=== PATIENT | male | born 1960 | race Caucasian/White ===

== ENCOUNTER 2017-06-16 13:38 | Emergency (ER) | payer BC, SELFPAY ==
[2017-06-16 13:39] VITALS: BP 135/66; PULSE 203; RESP 16; O2SAT 98; BMI 36.4
--- NOTE | 2017-06-16 13:39 | EKG12_ITS ---
Test Reason : CP Blood Pressure : / mmHG Vent. Rate : 202 BPM Atrial Rate : 234 BPM P-R Int : 000 ms QRS Dur : 066 ms QT Int : 224 ms P-R-T Axes : 000 041 205 degrees QTc Int : 410 ms Supraventricular tachycardia Nonspecific marked ST abnormality Abnormal ECG Confirmed by BERE MACARIO, JIMBO ([id number]), assistant film editor CHARI ROWLAND ([id number]) on 06/20/2017 2:18:18 PM Referred By: EZEQUIEL Confirmed By:JIMBO BLACKBURN MD
[2017-06-16 13:42] VITALS: TEMP 36.7
[2017-06-16] MEDS: Adenosine 6 MG/2 ML Syringe IV (13:44)
[2017-06-16] MEDS: Adenosine 6 MG/2 ML Syringe 12 MG IV (13:46)
--- NOTE | 2017-06-16 13:51 | RAD_ITS ---
STUDY: X-RAY CHEST REASON FOR EXAM: Male, 57 years old. Chest pain. TECHNIQUE: Single AP portable view of the chest. COMPARISON: 09/27/2013. FINDINGS: The lungs are clear and expanded. There is no demonstrated pleural abnormality. Normal size heart. Normal mediastinum and jasen. Normal visualized pulmonary arteries. Normal visualized aortic arch and descending thoracic aorta. Normal visualized thoracic spine. Normal visualized ribs, clavicles, and shoulders. There is no demonstrated abnormality of the visualized soft tissue structures of the upper abdomen. RAD/Chest 1 View (Portable) IMPRESSION: Normal x-ray examination of the chest. Electronically Signed: Ishmael Skinner MD at 14:18 EDT , Service support ,
--- NOTE | 2017-06-16 13:51 | EKG12_ITS ---
Test Reason : CP Blood Pressure : / mmHG Vent. Rate : 098 BPM Atrial Rate : 098 BPM P-R Int : 128 ms QRS Dur : 084 ms QT Int : 352 ms P-R-T Axes : 029 027 019 degrees QTc Int : 449 ms Normal sinus rhythm Normal ECG Confirmed by BERE MACARIO, JIMBO ([id number]), subeditor CHARI ROWLAND ([id number]) on 06/20/2017 1:54:00 PM Referred By: GREG Confirmed By:JIMBO BLACKBURN MD
--- NOTE | 2017-06-16 13:52 | ED.VISSUMM ---
- ER Visit Summary Date of Service: 06/16/17 Chief Complaint: Chest pain and palpitations History of Present Illness: The patient is a 57 M who was out mowing the lawn today when he developed a sudden onset of heart racing and chest pain. Patient states that this is happened to him once before several years ago. He states he did not see a foreign service officer. He has not had any symptoms since that time. He drinks about 2 cups of coffee a day. He was in his normal state of health today prior to this episode. He states that he is recently quit smoking. He has been exercising. Physical Examination: Heart rate 203 blood pressure 135/66 temperature 98.1 respirations are 16 pulse ox 98% on nasal cannula Gen: Well-nourished well-developed Head: Normocephalic atraumatic Eyes: Perrl EOMI ENT: TMs clear no rhinorrhea moist mucous membranes Neck: Supple no lymphadenopathy no JVD nontender CVS: Tachycardic no murmurs normal S1-S2 Respiratory: No distress clear to auscultation bilaterally chest nontender Abdomen: Soft nontender nondistended normal bowel sounds no masses Back: Nontender Extremity: Nontender no edema Skin: Pale and diaphoretic Neuro: alert orientated ?3 CN II-XII intact normal strength sensation reflexes gait cerebellar Psych: Anxious Emergency Department Course and Treatment: She will EKG shows a supraventricular tachycardia at a rate of 202 with evidence of subendocardial injury. She received 6 mg of adenosine after 2 vagal maneuvers failed. 12 mg of adenosine readily converted him to a sinus tachycardia. Repeat EKG shows resolution of the subendocardial injury. White count at 16.7 which is most likely due to the stress reaction of the events. Magnesium at 2 potassium 4.1. Glucose of 160. He does not note a history of diabetes I will send off a hemoglobin A1c for his doctors to review. BUN of 19 with a creatinine of 1.37. I spoke with Dr. Baeza who is covering for cardiology. Patient will call for follow-up appointment. At this point will not make any adjustments to his metoprolol because he is gone so many years without a episode. Patient to return if his symptoms recur. Impression: 1. Supraventricular tachycardia 2. Chemical cardioversion 2. Hyperglycemia This note was generated with WordWatchation software. It may contain incorrect words, spelling, and punctuation that were not noted in review of the chart prior to signing ED Disposition - Plan for ED Patient: Disposition: Home or Assisted Living Chief Complaint: Chest Pain Instructions: Hyperglycemia (High Blood Sugar), ED Tachycardia Pat PSVT Referrals: Nomi Hernandez MD [Primary Care Provider] - (Please follow-up with your doctor regarding your elevated blood sugar today of 160 and for them to review your hemoglobin A1c.) Marc Baeza MD [STAFF PHYSICIAN] - (Please follow-up with cardiology regarding your supraventricular tachycardic episode today.)
[2017-06-16] MEDS: 0.9% Normal Saline 1,000 ML 1000 ML IV (13:55)
[2017-06-16 14:05] LABS: Absolute Lymphocyte Count 8.53 X10^3/ul (0.83-4.51); Absolute Neutrophil Count 5.3 X10^3/uL (2.0-7.7); Basophil# 0.06 X10^3/uL; Basophil% 0.4 % (0-1); Differential Indicated SCAN CRITERIA MET; Eosinophils% 2.4 % (0-5); Hematocrit 45.5 % (40-54); Hemoglobin 15.6 g/dl (13.0-16.5); Lymphocyte # 8.53 X10^3/ul (4.0); Lymphocyte % 51.2 % (19-41); Mean Corp Hgb Conc 34.3 g/gl (32-36); Mean Corpuscular Hgb 33.3 pg (27.0-32.0); Mean Corpuscular Volume 97.2 fL (80-94); Mean Platelet Vol. 10.3 fl (6.2-12.0); Monocyte# 2.36 X10^3/uL; Monocyte% 14.2 % (0-10); Neutrophil # 5.26 X10^3/uL (2.7-7.7); Neutrophil % 31.5 % (47-70); POSITIVE COUNT NO; POSITIVE DIFFERENTIAL YES; POSITIVE MORPHOLOGY YES; Platelet Count 505 K/mm3 (150-450); RBC Distribution Width CV 14.2 % (11.6-14.6); RBC Distribution Width SD 49.8 fl (35.1-43.9); Red Blood Count 4.68 M/mm3 (4.6-6.2); White Blood Count 16.7 K/mm3 (4.4-11.0)
[2017-06-16 14:13] LABS: Anion Gap 10 (5-15); BUN 19 mg/dL (7-18); BUN/Creat Ratio 14.3 RATIO (10-20); Calcium,Total 9.3 mg/dL (8.5-10.1); Chloride 110 mmol/L (98-107); Creatinine, Serum 1.33 mg/dL (0.70-1.30); EST Glomerular Filtration Rate 59 mL/min (>60); Est Glom Filt Rate - Afr Amer 71 mL/min (>60); Estimated Creatinine Clearance 65.27 ml/min; Glucose 160 mg/dL (74-106); Potassium 4.1 mmol/L (3.5-5.1); Sodium Level 143 mmol/L (136-145)
[2017-06-16 14:42] VITALS: BP 112/80; PULSE 93; RESP 13; O2SAT 98
[2017-06-16 15:18] LABS: Hemoglobin A1c 5.7 % (4.2-6.3)
== END 2017-06-16 14:49 | disposition home or self-care (01) ==
LOC: ED 14:37
PROVIDERS: Emergency Provider Emergency Medicine; Family Provider Family Medicine; PCP Family Medicine
DX: I47.1 Supraventricular tachycardia (principal); R73.9 Hyperglycemia, unspecified; I10 Essential (primary) hypertension; Z87.891 Personal history of nicotine dependence
CPT/HCPCS: 71045; 80048; 83036; 83735; 85025; 93005; 99284; J7030; J0153

== ENCOUNTER → 2017-07-04 10:23 | Outpatient (CLI) | payer BC, SELFPAY ==
[2017-07-04 12:11] LABS: AST(SGOT) 17 U/L (15-37); Alanine Aminotransfer ALT/SGPT 27 U/L (16-61); Albumin, Serum 3.8 g/dL (3.2-5.0); Alkaline Phosphatase 76 U/L (45-117); Bilirubin, Direct 0.07 mg/dL (0.00-0.30); Cholesterol 152 mg/dL (200); Globulin 3.8 g/dL (2.2-4.2); High Density Lipoprotein 32 mg/dL; Protein, Total 7.6 g/dL (6.4-8.2); Thyroid Stim Hormone (TSH) 0.84 uIU/mL (0.358-3.74); Triglycerides 216 mg/dL; Very Low Density Lipoprotein 43 mg/dL (5-40)
== END ==
PROVIDERS: Family Provider Family Medicine; PCP Family Medicine; Visit Provider Internal Medicine Cardiovascular Disease
DX: I47.1 Supraventricular tachycardia (principal)
CPT/HCPCS: 36415; 80061; 80076; 84443

== ENCOUNTER → 2017-07-16 07:41 | Outpatient (CLI) | payer BC, SELFPAY ==
--- NOTE | 2017-07-16 07:41 | DT_ITS ---
This patient was seen during an EMR downtime July 16, 2017 - July 23, 2017. This patient may have a combination of paper and electronic documentation or all paper documentation. All documentation is viewable within the e-chart portion of [facility] for each patient visit.
--- NOTE | 2017-07-18 14:28 | ECHOD_ITS ---
Reason For Study: Arrhythmia Procedure This was a 2D Doppler, Color Flow transthoracic echocardiogram. Exam performed in department. Left Ventricle Normal LV size. Left ventricular systolic function is normal. The estimated ejection fraction is 60 %. Transmitral diastolic flow velocities suggest mild (stage 1) diastolic dysfunction (reversed pattern). No regional wall motion abnormalities noted. Right Ventricle Normal RV size. Normal systolic function. Atria Normal left atrium. Normal right atrium. Mitral Valve Normal mitral valve. Tricuspid Valve Normal tricuspid valve. Aortic Valve Trisinus/trileaflet aortic valve. Pulmonic Valve Normal pulmonic valve. Great Vessels Normal aortic root. The pulmonary artery is normal size. Normal inferior vena cava. Pericardium/Pleural No pericardial effusion. Medication Diluted definity 2ml given slow IV push to enhance endocardial definition. MMode/2D Measurements & Calculations LVIDd: 4.6 cm IVSd: 1.4 cm Ao root diam: 3.6 cm LVIDs: 3.2 cm LVPWd: 0.98 cm LA dimension: 4.3 cm RVDd: 3.9 cm FS: 30.1 % LAV(MOD-bp): 43.0 ml LAV(MOD-bp) Indexed: 18.4 ml/m2 LA A4 area: 19.9 cm2 RA A4 area: 15.5 cm2 LAV(MOD-sp2): 36.0 ml LAV(MOD-sp4): 52.1 ml Time Measurements MV dec time: 0.22 sec Doppler Measurements & Calculations MV E max erasto: 67.0 cm/sec Lat Peak E' Erasto: 14.4 cm/sec Med Peak E' Erasto: 9.7 cm/sec MV A max erasto: 83.3 cm/sec E/E' lat: 4.6 E/E' med: 6.9 MV E/A: 0.80 MV V2 max: 97.5 cm/sec Ao V2 max: 107.7 cm/sec LV V1 max: 99.1 cm/sec MV max P.8 mmHg Ao max P.6 mmHg LV V1 max P.9 mmHg MV V2 mean: 54.2 cm/sec Ao V2 mean: 72.6 cm/sec LV V1 mean P.9 mmHg MV mean P.4 mmHg Ao mean P.4 mmHg LV V1 mean: 64.4 cm/sec MV V2 VTI: 28.5 cm Ao V2 VTI: 21.3 cm LV V1 VTI: 21.4 cm PA V2 max: 79.9 cm/sec TR max erasto: 241.5 cm/sec TR max P.3 mmHg Interpretation Summary Normal LV size. Left ventricular systolic function is normal. The estimated ejection fraction is 60 %. Transmitral diastolic flow velocities suggest mild (stage 1) diastolic dysfunction (reversed pattern). Contrast injection was performed. Ordering Physician: Marc Baeza Referring Physician: Nomi Hernandez M.D. Performed By: Miranda Cole RDCS
== END ==
PROVIDERS: Family Provider Family Medicine; PCP Family Medicine; Visit Provider Internal Medicine Cardiovascular Disease
DX: I47.1 Supraventricular tachycardia (principal)
CPT/HCPCS: 93306; Q9957; A4216

== ENCOUNTER → 2017-11-08 08:48 | Outpatient (CLI) | payer BC, SELFPAY ==
[2017-11-08 10:28] LABS: AST(SGOT) 15 U/L (15-37); Alanine Aminotransfer ALT/SGPT 27 U/L (16-61); Albumin, Serum 3.8 g/dL (3.2-5.0); Alkaline Phosphatase 80 U/L (45-117); Anion Gap 6 (5-15); BUN 14 mg/dL (7-18); BUN/Creat Ratio 15.7 RATIO (10-20); Calcium,Total 8.9 mg/dL (8.5-10.1); Chloride 108 mmol/L (98-107); Cholesterol 134 mg/dL (200); Creatinine, Serum 0.89 mg/dL (0.70-1.30); EST Glomerular Filtration Rate 94 mL/min (>60); Est Glom Filt Rate - Afr Amer 113 mL/min (>60); Globulin 3.8 g/dL (2.2-4.2); Glucose 113 mg/dL (74-106); High Density Lipoprotein 33 mg/dL; Potassium 4.4 mmol/L (3.5-5.1); Protein, Total 7.6 g/dL (6.4-8.2); Sodium Level 141 mmol/L (136-145); Triglycerides 202 mg/dL; Very Low Density Lipoprotein 40 mg/dL (5-40)
== END ==
PROVIDERS: Family Provider Family Medicine; PCP Family Medicine; Visit Provider Family Medicine
DX: I10 Essential (primary) hypertension (principal)
CPT/HCPCS: 36415; 80053; 80061

== ENCOUNTER → 2018-11-01 13:25 | Outpatient (CLI) | payer BC, SELFPAY ==
[2017-07-04 09:27] VITALS: BMI 35.5
[2018-11-01 14:30] LABS: Anion Gap 4 (5-15); BUN 20 mg/dL (7-18); BUN/Creat Ratio 20.9 RATIO (10-20); Calcium,Total 8.8 mg/dL (8.5-10.1); Chloride 111 mmol/L (98-107); Cholesterol 140 mg/dL (200); Creatinine, Serum 0.96 mg/dL (0.70-1.30); EST Glomerular Filtration Rate 86 mL/min (>60); Est Glom Filt Rate - Afr Amer 104 mL/min (>60); Glucose 121 mg/dL (74-106); High Density Lipoprotein 32 mg/dL; PSA,Total - Annual Screen 3.12 ng/mL (0.00-4.00); Potassium 4.1 mmol/L (3.5-5.1); Sodium Level 141 mmol/L (136-145); Triglycerides 217 mg/dL; Very Low Density Lipoprotein 43 mg/dL (5-40)
[2018-11-01 15:15] LABS: Hemoglobin A1c 6.1 % (4.2-6.3)
== END ==
PROVIDERS: Family Provider Family Medicine; PCP Family Medicine; Referring Provider Family Medicine; Visit Provider Family Medicine
DX: E78.5 Hyperlipidemia, unspecified (principal); I10 Essential (primary) hypertension; R73.09 Other abnormal glucose; Z12.5 Encounter for screening for malignant neoplasm of prostate
CPT/HCPCS: 36415; 80048; 80061; 83036; 84153; G0103

== ENCOUNTER → 2019-01-21 14:03 | Outpatient (CLI) | payer BC, SELFPAY ==
[2017-07-04 09:27] VITALS: BMI 35.5
[2019-01-21 15:31] LABS: ALB/GLOB Ratio 0.9 RATIO (0.9-2.4); AST(SGOT) 12 U/L (15-37); Alanine Aminotransfer ALT/SGPT 29 U/L (16-61); Albumin, Serum 3.6 g/dL (3.2-5.0); Alkaline Phosphatase 78 U/L (45-117); Anion Gap 5 (5-15); BUN 12 mg/dL (7-18); BUN/Creat Ratio 13.1 RATIO (10-20); Calcium,Total 8.9 mg/dL (8.5-10.1); Chloride 107 mmol/L (98-107); Creatinine, Serum 0.91 mg/dL (0.70-1.30); EST Glomerular Filtration Rate 90 mL/min (>60); Est Glom Filt Rate - Afr Amer 109 mL/min (>60); Globulin 3.8 g/dL (2.2-4.2); Glucose 117 mg/dL (74-106); Potassium 4.2 mmol/L (3.5-5.1); Protein, Total 7.4 g/dL (6.4-8.2); Sodium Level 140 mmol/L (136-145)
[2019-01-21 15:32] LABS: BNP,B-Type NATRIURETIC PEPTIDE 33.8 pg/mL (0-100)
== END ==
PROVIDERS: Family Provider Family Medicine; PCP Family Medicine; Visit Provider Family Medicine
DX: M79.89 Other specified soft tissue disorders (principal)
CPT/HCPCS: 36415; 80053; 83880

== ENCOUNTER → 2019-11-06 11:44 | Outpatient (CLI) | payer BC, SELFPAY ==
[2017-07-04 09:27] VITALS: BMI 35.5
[2019-11-06 15:54] LABS: AST(SGOT) 19 U/L (15-37); Alanine Aminotransfer ALT/SGPT 28 U/L (16-61); Albumin, Serum 3.6 g/dL (3.2-5.0); Alkaline Phosphatase 79 U/L (45-117); Anion Gap 5 (5-15); BUN 14 mg/dL (7-18); BUN/Creat Ratio 15.2 RATIO (10-20); Calcium,Total 8.6 mg/dL (8.5-10.1); Chloride 109 mmol/L (98-107); Cholesterol 146 mg/dL (200); Creatinine, Serum 0.92 mg/dL (0.70-1.30); EST Glomerular Filtration Rate 89 mL/min (>60); Est Glom Filt Rate - Afr Amer 108 mL/min (>60); Globulin 3.7 g/dL (2.2-4.2); Glucose 119 mg/dL (74-106); High Density Lipoprotein 29 mg/dL; PSA,Total - Annual Screen 4.78 ng/mL (0.00-4.00); Potassium 4.4 mmol/L (3.5-5.1); Protein, Total 7.3 g/dL (6.4-8.2); Sodium Level 140 mmol/L (136-145); Triglycerides 356 mg/dL; Very Low Density Lipoprotein 71 mg/dL (5-40)
== END ==
PROVIDERS: PCP Family Medicine; Referring Provider Family Medicine; Visit Provider Family Medicine
DX: I10 Essential (primary) hypertension (principal); Z12.5 Encounter for screening for malignant neoplasm of prostate
CPT/HCPCS: 36415; 80053; 80061; 84153; G0103

== ENCOUNTER → 2019-12-30 16:00 | Outpatient (CLI) | payer BC, SELFPAY ==
[2017-07-04 09:27] VITALS: BMI 35.5
--- NOTE | 2019-12-30 11:00 | PROSBIL_PTH ---
PATIENT: REJI CARRENO LOC: BRAIN U#:[id number] AGE/SX: 64/M ROOM: RE12/30/[address]: Dr. Reji Lou MD : [id number] BED: DIS: SPEC #: [id number] RECD: 12/31/19 08:50 STATUS: MARTÍN DIMITRI #: [id number] JESSE: 12/30/19 11:[address]: Reji Lou DEPT: SURGICAL PATHOLOGY RECD BY: Yvonne Mckoy ENTERED: 12/31/19 08:52 SP TYPE: PROST BX ALTAF DR: Dr. Nomi Hernandez MD Tissues: A - PROSTATE RIGHT B - PROSTATE RIGHT C - PROSTATE RIGHT D - PROSTATE LEFT E - PROSTATE LEFT F - PROSTATE LEFT Procedures: PROSTATE BX HEADER OPERATION: Prostate biopsy PRE-OP DIAGNOSIS: Elevated PSA TISSUE SUBMITTED: A - Right apex, B - Right mid, C - Right base, D - Left apex, E - Left mid, F - Left base MICROSCOPIC DIAGNOSIS A. Right prostate, apex, core biopsy: Benign prostatic tissue. B. Right prostate, mid, core biopsy: Benign prostatic tissue. C. Right prostate, base, core biopsy: Mild chronic inflammation. D. Left prostate, apex, core biopsy: Mild chronic inflammation and focal acute inflammation. E. Left prostate, mid, core biopsy: Mild chronic inflammation and focal acute inflammation. F. Left prostate, base, core biopsy: Mild chronic inflammation and focal acute inflammation. AM:clementina 01/01/20 MICROSCOPIC DESCRIPTION Slides are reviewed. GROSS DESCRIPTION A - Received is one container designated prostate, right apex. The specimen consists of one elongated fragment of light barrios-white soft tissue measuring 1.5 cm in length and 0.1 cm in diameter. The specimen is totally submitted in one cassette. B - Received is one container designated prostate, right mid. The specimen consists of two elongated fragments of light barrios-white soft tissue each measuring 1 cm in length and 0.1 cm in diameter. The specimen is totally submitted in one cassette. C - Received is one container designated prostate, right base. The specimen consists of two elongated fragments of light barrios-white soft tissue each measuring 1 cm in length and 0.1 cm in diameter. The specimen is totally submitted in one cassette. D - Received is one container designated prostate, left apex. The specimen consists of one elongated fragment of light barrios-white soft tissue measuring 1.5 cm in length and 0.1 cm in diameter. The specimen is totally submitted in one cassette. E - Received is one container designated prostate, left mid. The specimen consists of two elongated fragments of light barrios-white soft tissue each measuring 1 cm in length and 0.1 cm in diameter. The specimen is totally submitted in one cassette. F - Received is one container designated prostate, left base. The specimen consists of two elongated fragments of light barrios-white soft tissue each measuring 1 cm in length and 0.1 cm in diameter. The specimen is totally submitted in one cassette. / AM:clementina 12/31/19 TC:2 CPT: 62993 x6
== END ==
PROVIDERS: PCP Family Medicine; Visit Provider Urology
DX: R97.20 Elevated prostate specific antigen [PSA] (principal)
CPT/HCPCS: 88305; G0416

== ENCOUNTER → 2020-03-31 12:41 | Outpatient (CLI) | payer OTHER, SELFPAY ==
--- NOTE | 2020-03-31 12:45 | CT_ITS ---
STUDY: CT SOFT TISSUE NECK WITH CONTRAST REASON FOR EXAM: Male, 60 years old. LEFT FACIAL PARALYSIS AFTER EAR CLEANING AT 'S OFFICE RADIATION DOSAGE (If Supplied By Facility): CTDIvol = ( 18.89 ) mGy, DLP = ( 608.83 ) mGycm TECHNIQUE: The patient was scanned in a multi-detector CT scanner. High resolution transaxial imaging was performed following intravenous administration of IV 100mL Isovue-300. Sagittal and coronal images were reconstructed. Individualized dose optimization techniques were used for this CT. COMPARISON: 11/22/2015. FINDINGS: Normal bilateral parotid glands. Normal bilateral business continuity manager spaces. Normal bilateral parapharyngeal spaces. Normal bilateral sublingual and submandibular glands and spaces. Normal visualized nasopharynx. Normal retropharyngeal space. Normal perivertebral space. Normal visualized bilateral faucial tonsils. The visualized tongue, tongue base and oropharynx are normal. Again noted are bilateral cervical chains enlarged lymph nodes measuring up to 2 cm at the left jugulodigastric region. Findings are stable since the prior examination. There is no demonstrated solid or cystic mass lesion. There is no abnormal contrast enhancement. Normal epiglottis, bilateral vallecula and hypopharynx. The pre-epiglottic and paraglottic adipose spaces are normal. Normal visualized bilateral piriform sinuses, aryepiglottic folds, vocal cords, and arytenoid-cricoid articulations. Normal subglottic trachea. Normal bilateral lobes of the thyroid gland. Normal visualized pulmonary apices. CT/Soft Tissue Neck WITH Contrast IMPRESSION: No fluid collections or masses. Stable mild lymphadenopathy. Electronically Signed: Myra Guzman MD at 9:06 EST Tel , Service support ,
[2020-03-31 13:16] LABS: CREATININE FINGERSTICK 1.1 mg/dL (0.70-1.30); EGFR FINGERSTICK > 60.0000 mL/min (>60)
== END ==
PROVIDERS: PCP Family Medicine; Referring Provider Otolaryngology Otolaryngology/Facial Plastic Surgery; Visit Provider Otolaryngology Otolaryngology/Facial Plastic Surgery
DX: G51.0 Bell's palsy (principal)
CPT/HCPCS: 70491; Q9967

== ENCOUNTER → 2020-04-06 12:35 | Outpatient (CLI) | payer OTHER, SELFPAY ==
[2017-07-04 09:27] VITALS: BMI 35.5
--- NOTE | 2020-04-06 12:40 | RAD_ITS ---
STUDY: X-RAY - UNILATERAL RIBS ( LEFT ) WITH CHEST REASON FOR EXAM: Male, 60 years old. Left sided anterior rib pain after fall TECHNIQUE - RIBS: 4 view(s) of the ribs. TECHNIQUE - CHEST: Single frontal view of the chest. COMPARISON: Comparison is made with prior chest radiograph dated 06/16/2017. FINDINGS - RIBS: Normal visualized ribs without a demonstrated fracture. FINDINGS - CHEST: Mild degree of increased markings at the lung bases more prominent on the right side suggestive of right basilar atelectasis. There is no demonstrated pleural abnormality. Normal size heart. Normal mediastinum and jasen. Normal visualized pulmonary arteries. Normal visualized aortic arch and descending thoracic aorta. There are diffuse degenerative changes of the visualized thoracic spine. There is degenerative osteoarthritis of the bilateral shoulders. There is no demonstrated abnormality of the visualized soft tissue structures of the upper abdomen. RAD/Ribs Uni Min 3V w/PA Chest IMPRESSION: RIBS: Normal x-ray examination of the ribs. CHEST: Bibasilar atelectasis. Electronically Signed: Rodney Brower MD at 13:31 EST , Service support ,
== END ==
PROVIDERS: PCP Family Medicine; Referring Provider Registered Nurse; Visit Provider Registered Nurse
DX: R07.81 Pleurodynia (principal)
CPT/HCPCS: 71101

== ENCOUNTER → 2020-04-12 14:03 | Outpatient (CLI) | payer OTHER, SELFPAY ==
[2017-07-04 09:27] VITALS: BMI 35.5
--- NOTE | 2020-04-12 14:06 | RAD_ITS ---
STUDY: X-RAY CHEST REASON FOR EXAM: Male, 60 years old. CHEST PAIN TECHNIQUE: PA and lateral views of the chest. COMPARISON: 04/06/2020 FINDINGS: Left lower lobe discoid atelectasis or scarring. There is no demonstrated pleural abnormality. Normal size heart. Normal mediastinum and jasen. Normal visualized pulmonary arteries. Normal visualized aortic arch and descending thoracic aorta. Normal visualized thoracic spine. Multiple healed left rib fractures. There is no demonstrated abnormality of the visualized soft tissue structures of the upper abdomen. RAD/Chest PA and Lateral IMPRESSION: Left lower lobe discoid atelectasis or scarring Electronically Signed: Bridger Mendez MD at 14:45 EST Tel , Service support ,
--- NOTE | 2020-04-12 14:06 | RAD_ITS ---
STUDY: X-RAY - UNILATERAL RIBS ( LEFT ) REASON FOR EXAM: Male, 60 years old. PAIN- FALL TECHNIQUE: 4 view(s) of the ribs. COMPARISON: None. FINDINGS: Healed fracture the posterior left seventh, eighth, and ninth ribs. The visualized lung is clear and expanded. RAD/Ribs Unil 2V No CXR IMPRESSION: Multiple healed left rib fractures. Electronically Signed: Bridger Mendez MD at 14:43 EST Tel , Service support ,
== END ==
PROVIDERS: PCP Family Medicine; Referring Provider Family Medicine; Visit Provider Family Medicine
DX: R07.89 Other chest pain (principal); T14.8XXA Other injury of unspecified body region, initial encounter; W19.XXXA Unspecified fall, initial encounter; Y93.9 Activity, unspecified; Y92.9 Unspecified place or not applicable; Y99.9 Unspecified external cause status
CPT/HCPCS: 71046; 71100

== ENCOUNTER → 2020-05-06 13:55 | Outpatient (CLI) | payer OTHER, SELFPAY ==
[2020-05-06 18:16] LABS: AST(SGOT) 16 U/L (15-37); Alanine Aminotransfer ALT/SGPT 28 U/L (16-61); Albumin, Serum 3.6 g/dL (3.2-5.0); Alkaline Phosphatase 83 U/L (45-117); Anion Gap 5 (5-15); BUN 17 mg/dL (7-18); BUN/Creat Ratio 20.4 RATIO (10-20); Calcium,Total 8.7 mg/dL (8.5-10.1); Chloride 108 mmol/L (98-107); Cholesterol 167 mg/dL (200); Creatinine, Serum 0.84 mg/dL (0.70-1.30); EST Glomerular Filtration Rate 100 mL/min (>60); Est Glom Filt Rate - Afr Amer 121 mL/min (>60); Globulin 3.7 g/dL (2.2-4.2); Glucose 122 mg/dL (74-106); High Density Lipoprotein 39 mg/dL; Potassium 4.2 mmol/L (3.5-5.1); Protein, Total 7.3 g/dL (6.4-8.2); Sodium Level 139 mmol/L (136-145); Triglycerides 122 mg/dL; Very Low Density Lipoprotein 24 mg/dL (5-40)
== END ==
PROVIDERS: PCP Family Medicine; Referring Provider Family Medicine; Visit Provider Family Medicine
DX: E78.5 Hyperlipidemia, unspecified (principal); R73.03 Prediabetes
CPT/HCPCS: 36415; 80053; 80061; 83036

== ENCOUNTER → 2020-06-10 12:05 | Outpatient (CLI) | payer OTHER, SELFPAY ==
[2017-07-04 09:27] VITALS: BMI 35.5
--- NOTE | 2020-06-10 12:07 | RAD_ITS ---
STUDY: X-RAY - ABDOMEN/PELVIS REASON FOR EXAM: Male, 60 years old. PAIN TECHNIQUE: AP supine and upright views of the abdomen and pelvis. COMPARISON: None. FINDINGS: Normal visualized lung bases. There is a moderate amount of colonic fecal material. There is no demonstrated free abdominal air. The visualized liver, spleen and kidneys are grossly normal in size and morphology. There are calcified phleboliths in the pelvis. There are diffuse degenerative changes of the visualized lumbar spine. Mild dextroscoliosis. RAD/Abd Inc Decub and/or Erect IMPRESSION: Moderate amount of fecal material is seen in the colon. Electronically Signed: Rodney Brower MD at 12:29 EDT , Service support ,
[2020-06-10 15:16] LABS: Absolute Lymphocyte Count 3.66 X10^3/uL (0.83-4.51); Absolute Neutrophil Count 6.6 X10^3/uL (2.0-7.7); Basophil% 0.8 % (0-1); Eosinophil# 0.56 X10^3/uL; Eosinophils% 4.5 % (0-5); Hematocrit 46.1 % (40-54); Lymphocyte # 3.66 X10^3/ul (0.83-4.51); Lymphocyte % 29.1 % (19-41); Mean Corp Hgb Conc 32.5 g/dL (32-36); Mean Corpuscular Volume 98.3 fL (80-94); Mean Platelet Vol. 10.5 fl (6.2-12.0); Monocyte# 1.61 X10^3/uL; Monocyte% 12.8 % (0-10); NRBC Flagged by Analyzer 0 % (0-5); Neutrophil # 6.59 X10^3/uL (2.7-7.7); Neutrophil % 52.5 % (47-70); POSITIVE DIFFERENTIAL YES; Platelet Count 546 K/mm3 (150-450); RBC Distribution Width SD 50.9 fl (35.1-43.9); Red Blood Count 4.69 M/mm3 (4.6-6.2); White Blood Count 12.6 K/mm3 (4.4-11.0)
[2020-06-10 15:19] LABS: Differential Indicated SCAN CRITERIA MET
[2020-06-10 15:40] LABS: ALB/GLOB Ratio 0.9 RATIO (0.9-2.4); AST(SGOT) 10 U/L (15-37); Alanine Aminotransfer ALT/SGPT 21 U/L (16-61); Albumin, Serum 3.6 g/dL (3.2-5.0); Alkaline Phosphatase 87 U/L (45-117); Anion Gap 3 (5-15); BUN 12 mg/dL (7-18); BUN/Creat Ratio 13.5 RATIO (10-20); Chloride 108 mmol/L (98-107); Creatinine, Serum 0.89 mg/dL (0.70-1.30); EST Glomerular Filtration Rate 93 mL/min (>60); Est Glom Filt Rate - Afr Amer 112 mL/min (>60); Globulin 4.1 g/dL (2.2-4.2); Glucose 129 mg/dL (74-106); Potassium 4.3 mmol/L (3.5-5.1); Protein, Total 7.7 g/dL (6.4-8.2); Sodium Level 138 mmol/L (136-145); Thyroid Stim Hormone (TSH) 0.97 uIU/mL (0.358-3.74)
[2020-06-11 12:00] LABS: Pathologist Review Reviewed
== END ==
PROVIDERS: PCP Family Medicine; Referring Provider Family Medicine; Visit Provider Family Medicine
DX: R10.9 Unspecified abdominal pain (principal)
CPT/HCPCS: 36415; 74019; 80053; 84443; 85025

== ENCOUNTER → 2020-07-23 14:18 | Outpatient (CLI) | payer OTHER, SELFPAY ==
[2017-07-04 09:27] VITALS: BMI 35.5
[2020-07-23 17:48] LABS: PSA,Total- Diagnostic 3.75 ng/mL (0.0-4.0)
== END ==
PROVIDERS: PCP Family Medicine; Referring Provider Family Medicine; Visit Provider Urology
DX: R97.20 Elevated prostate specific antigen [PSA] (principal)
CPT/HCPCS: 36415; 84153

== ENCOUNTER → 2020-12-16 11:23 | Outpatient (CLI) | payer OTHER, SELFPAY ==
--- NOTE | 2020-12-16 11:25 | RAD_ITS ---
STUDY: X-RAY - RIGHT SHOULDER REASON FOR EXAM: Right shoulder pain, right shoulder injury. TECHNIQUE: 4 view(s) of the shoulder. COMPARISON: None. FINDINGS: There are marginal osteophytes and humeral head and joint space loss of the glenohumeral articulation. There is mild joint space narrowing of a acromioclavicular joint. Normal acromion. Normal humeral head and visualized proximal humerus. The soft tissue structures are unremarkable. Normal visualized pulmonary apex. RAD/Shoulder min 2 Views IMPRESSION: Glenohumeral arthrosis. Mild acromioclavicular arthrosis. Electronically Signed: Jose David Gomez MD at 13:46 EDT Tel , Service support ,
== END ==
PROVIDERS: PCP Family Medicine; Referring Provider Family Medicine; Visit Provider Family Medicine
DX: S49.91XA Unspecified injury of right shoulder and upper arm, initial encounter (principal)
CPT/HCPCS: 73030

== ENCOUNTER 2021-03-01 14:13 | Outpatient (CLI) | payer BC, SELFPAY ==
--- NOTE | 2021-03-01 14:20 | CT_ITS ---
STUDY: CT SCAN SHOULDER RIGHT REASON FOR EXAM: Male, 61 years old. PRIMARY OSTEOARTHRITIS,RT SHOULDER RADIATION DOSAGE (If Supplied By Facility): CTDIvol = ( 59.66 ) mGy, DLP = ( 3078.23 ) mGycm. Individualized dose optimization techniques were used for this CT.? TECHNIQUE: Multiple axial tomographic images were obtained without intravenous contrast administration. Coronal and sagittal reconstruction was obtained as well. COMPARISON: None. FINDINGS: There is a marked degree of osteoarthritis and joint space narrowing of the glenohumeral joint with marginal osteophytes along the inferior medial aspect of the humeral head. This also evidence of subchondral geodes at the level of the humeral head as well as the glenoid. CT/Extremity Upper without Contra IMPRESSION: Marked degree of osteoarthritis involving the glenohumeral joint as described. Electronically Signed: Rodney Brower MD at 15:27 EST , Service support ,
== END 2021-03-01 23:59 | disposition short-term general hospital (02) ==
PROVIDERS: PCP Family Medicine; Referring Provider Student in an Organized Health Care Education/Training Program; Visit Provider Student in an Organized Health Care Education/Training Program
DX: M19.011 Primary osteoarthritis, right shoulder (principal)
CPT/HCPCS: 73200

== ENCOUNTER 2021-03-09 11:15 | Outpatient (CLI) | payer BC, SELFPAY ==
[2021-03-09 15:10] LABS: Absolute Lymphocyte Count 3.38 X10^3/uL (0.83-4.51); Absolute Neutrophil Count 5.8 X10^3/uL (2.0-7.7); Basophil# 0.05 X10^3/uL; Basophil% 0.5 % (0-1); Eosinophil# 0.44 X10^3/uL; Hematocrit 43.2 % (40-54); Hemoglobin 14.3 g/dL (13.0-16.5); Lymphocyte # 3.38 X10^3/ul (0.83-4.51); Lymphocyte % 30.5 % (19-41); Mean Corp Hgb Conc 33.1 g/dL (32-36); Mean Corpuscular Hgb 32.7 pg (27.0-32.0); Mean Corpuscular Volume 98.9 fL (80-94); Mean Platelet Vol. 10.4 fl (6.2-12.0); Monocyte# 1.37 X10^3/uL; Monocyte% 12.3 % (0-10); NRBC Flagged by Analyzer 0 % (0-5); Neutrophil # 5.78 X10^3/uL (2.7-7.7); Platelet Count 535 K/mm3 (150-450); RBC Distribution Width CV 14.2 % (11.6-14.6); RBC Distribution Width SD 52.5 fl (35.1-43.9); Red Blood Count 4.37 M/mm3 (4.6-6.2); White Blood Count 11.1 K/mm3 (4.4-11.0)
[2021-03-09 18:08] LABS: Anion Gap 10 (5-15); BUN 14 mg/dL (7-18); Calcium,Total 8.7 mg/dL (8.5-10.1); Chloride 107 mmol/L (98-107); Cholesterol 139 mg/dL (200); Creatinine, Serum 0.87 mg/dL (0.70-1.30); EST Glomerular Filtration Rate 94 mL/min (>60); Est Glom Filt Rate - Afr Amer 114 mL/min (>60); Glucose 134 mg/dL (74-106); High Density Lipoprotein 37 mg/dL; Potassium 5.1 mmol/L (3.5-5.1); Sodium Level 141 mmol/L (136-145); Triglycerides 230 mg/dL; Very Low Density Lipoprotein 46 mg/dL (5-40)
== END 2021-03-09 23:59 | disposition short-term general hospital (02) ==
LOC: MFPLAB 11:16
PROVIDERS: PCP Family Medicine; Referring Provider Family Medicine; Visit Provider Family Medicine
DX: Z00.00 Encounter for general adult medical examination without abnormal findings (principal)
CPT/HCPCS: 36415; 80048; 80061; 85025

== ENCOUNTER 2021-03-24 15:31 | Observation (INO) | payer BC, SELFPAY ==
--- NOTE | 2021-03-11 13:33 | RAD_ITS ---
STUDY: XR Chest 2 Views 03/11/2021 1:41 PM REASON FOR EXAM: Male, 61 years old. Preop COMPARISON: None TECHNIQUE: XR Chest 2 Views FINDINGS: There is no demonstrated pleural abnormality. Healed left rib fractures. Normal heart size. Normal mediastinum. Normal jasen. Prominent appearing increased interstitial lung markings. Normal visualized pulmonary arteries. There is atherosclerotic calcification of the aortic arch with tortuosity. There are diffuse degenerative changes of the visualized thoracic spine. There is degenerative osteoarthritis of the bilateral shoulders. There is no demonstrated abnormality of the visualized soft tissue structures of the upper abdomen. RAD/Chest PA and Lateral IMPRESSION: There are no acute findings. Electronically Signed: Charbel Stevens MD at 18:11 EST ,
[2021-03-11 15:06] LABS: Partial Thromboplast Time 28.6 Seconds (24.1-36.2); Prothrombin Time (Protime)PT. 12.3 SECONDS (11.7-14.9)
[2021-03-24] VITALS (22 sets, daily range): BP systolic 96–167; BP diastolic 61–102; PULSE 85–120; RESP 12–21; TEMP 35.9–37.1; O2SAT 4–98; BMI 43.0
[2021-03-24] MEDS: Lactated Ringers 1,000 ML 15 ML IV ×3 (06:51→12:45)
[2021-03-24 07:06] LABS: Bedside Glucose 153 mg/dL (70-110)
--- NOTE | 2021-03-24 12:17 | RAD_ITS ---
STUDY: X-RAY - RIGHT SHOULDER REASON FOR EXAM: Postoperative evaluation of right shoulder arthroplasty. TECHNIQUE: 2 view(s) of the shoulder. COMPARISON: CT images 03/01/2021. FINDINGS: There is a right reverse shoulder arthroplasty without evidence of complication. There is postoperative gas in the soft tissues. There is mild atelectasis of the right lung base. RAD/Shoulder min 2 Views IMPRESSION: Uncomplicated right shoulder arthroplasty. Electronically Signed: Jose David Gomez MD at 14:15 EST ,
--- NOTE | 2021-03-24 12:19 | PCM.OPRPT ---
Report of Operation Description of Surgical Findings:: Preoperative diagnosis: Right glenohumeral joint primary osteoarthritis Postoperative diagnosis: Right glenohumeral joint primary osteoarthritis Procedure: Right reverse total shoulder arthroplasty Surgeon: Andrea Alvarez DO Rn Resource Nurse: Marya Moreno PA-C Anesthesia: General endotracheal Automotive Worker: Rajesh Hernandez CRNA Complications: None apparent Drains: None Estimated blood loss: 300 cc Urinary output: None cc IV fluids: Per anesthesia record Specimens: None Surgical implants: Tornier Aequalis PerFORM+ reversed half wedge augment baseplate 25 mm, angle 35 degrees, standard glenosphere cobalt chrome 36 mm diameter, flex shoulder system reverse tray eccentric low thickness +0 mm, standard PTC humeral stem Aequalis Ascend Flex 132.5 degree angle size 4B, reverse insert thickness +6 mm ultrahigh molecular weight polyethylene. 35 mm central screw. Peripheral screws 38 and 34 mm. Surgical indications: This is a 61-year-old male with persistent right shoulder pain several years duration. He did have worsening symptoms over the last several months. X-rays revealed primary glenohumeral arthritis of his right shoulder with significant glenoid retroversion. I recommended a anatomic shoulder arthroplasty versus reverse shoulder arthroplasty. We obtained a preoperative CT scan for planning. He had glenoid retroversion of approximately 35 degrees. Due to the degree of retroversion need for augmentation, I recommended a reverse shoulder arthroplasty. The risks, benefits, alternatives the procedure was reviewed with the patient and he agreed to proceed. Risks included but were not limited to bleeding, infection, instability, loss of life or limb, risk of anesthesia, neurovascular injury, persistent pain, stiffness, prolonged immobilization, need for additional surgery, loosening of orthopedic hardware. He expressed understanding and wished to proceed with surgery. Surgical details: Patient arrived to [facility] morning of the procedure and was greeted by the same day surgery staff. Prior to his procedure, I greeted the patient in the preoperative holding area I identified the patient by name, record number, and date of . Informed consent was confirmed. The operative extremity was marked. All questions were answered to patient satisfaction. Patient was also seen by anesthesia staff. Interscalene block was administered prior to procedure for postoperative analgesia. At time of his procedure, patient was brought to the operative suite and positioned supine on a standard table with a beachchair attachment. General anesthesia was induced after all bony prominences were well-padded. Endotracheal tube was placed. After adequate anesthesia and securing the tube, we prepared the patient to be positioned in the beachchair position. A well-padded overhead line worker was applied. The nonoperative extremity was placed in a well arm todd. He was then brought into the beachchair position after we confirmed an appropriate blood pressure. We then spun the bed 45 degrees. The operative extremity was then prepared. In the butterfly wing of the bed was removed and a well-padded torso strap was applied to secure the patient to the bed. The operative extremity was now free. We then prepped and draped the left upper extremity in normal, sterile orthopedic fashion. We then performed a timeout with all parties in attendance in agreement with the side, site, and operation be performed. 3 g Ancef was administered prior to incision by anesthesia staff, as well as 1 g TXA IV. No concerns were voiced and we elected to proceed. I first marked a standard deltopectoral incision just lateral to the coracoid process in line with the long axis of the humerus. Skin was sharply incised with 10 blade scalpel. I then dissected bluntly through the subcutaneous layers and found the fat stripe between the deltoid and pectoralis major. The cephalic vein was then identified and protected. It was retracted laterally with the deltoid. I then bluntly dissected underneath the deltoid with a Wesley elevator. Stephania retractor was placed. The upper 1 cm of the pectoralis major was released. I then identified the long head of the biceps tendon in the intertubercular groove. This was tenodesed in situ with #2 FiberWire. I then amputated the biceps proximal to the tenodesis site and followed the tendon to the supraglenoid tubercle where it was amputated. This identified the lesser and greater tuberosities. I then performed a subscapularis peel while rotating the humerus externally. I tagged the subscapularis for possible repair later with a tagging suture. I then made a anatomic neck cut of the cartilaginous surface of the humeral head. I placed a canal finding reamer at the superior apex of the humeral head. I then sequentially broached to a size 4 broach with excellent rotational control. I placed a humeral protector plate and subluxed the humeral head posteriorly. I then placed retractors around the posterior and anterior glenoid to expose the glenoid. Glenoid labrum was removed with Bovie cautery protecting the axillary nerve, which was in close proximity to the glenoid neck. We then used the custom guide from [employer] to position our centering pin. Guide was removed and pin was analyzed and compared to preoperative planning. It appeared to be in appropriate position. This was reamed to a pretemplated depth, remaining mostly the anterior surface of the glenoid. We then remove the reamer and used the cannulated drill for the central 35 mm screw. Pin was removed. Post and baseplate was assembled on the back table. We then inserted the baseplate and central screw the assembled baseplate to an appropriate depth. A [place] was used to confirm depth. Cortical screws then were placed in the most superior and inferior holes with good purchase. The baseplate had excellent purchase and the entire scapula would rotate with rotation of the baseplate. We then impacted the 36 mm glenosphere with a standard eccentricity. Locking screw was then placed in the centering hole of the glenosphere with excellent purchase. We then removed retractors and turned our attention back to the humerus. I placed a standard +0 tray and 6 mm polyethylene insert. I then reduced the shoulder. There was excellent range of motion and stability in all planes of motion. We selected this as our final size. We removed trials from the humerus after final dislocation. I copiously irrigated the canal. Broach was placed on hand and then impacted to an appropriate depth. Final +6 mm polyethylene insert was placed. Final reduction was then performed. I then copiously irrigated the wound with Betadine solution and normal saline solution. Hemostasis was excellent. The axillary nerve was visualized and appeared to be intact. The subscapularis was then identified with a tagging suture. Repair would have been likely under undue tension and likely failed. I elected to not perform a subscapularis repair. We then copiously irrigated the wound with normal saline solution. We reapproximated the interval with 0 Vicryl suture. Subcutaneous layers were reapproximated with 2 -0 Vicryl suture. Skin was finally running V-Loc 3-0 Monocryl suture and Dermabond. A sterile silver Mepilex dressing was applied. Patient was then placed in a simple sling. Patient tolerated procedure well without complication. He was positioned back in the supine position extubated in the operative suite. He was transferred to the [facility] and subsequently to PACU in stable condition. Need for skilled construction management assistant: Marya Moreno PA-C was critical to the outcome of the case. During the course of the procedure the physician construction management assistant played a vital role. Her intimate knowledge of my steps in the procedure aided in safe and expedient completion of the procedure. The PA played a vital role in positioning particularly in obtaining the appropriate positioning. The PA was also vital in the retraction of soft tissues during the exposure and projecting vital structures. The PA was also vital and protecting soft tissues during times of bony cuts. She also played a vital role in closure with my direct supervision. The PA was also important during reduction and dislocation of the joint and trials intraoperatively. Intraoperative medications: 3 g Ancef IV, 1 g TXA IV x2 Post Operative Plan: Weightbearing: Nonweightbearing right upper extremity, okay for pendulums. Range of motion of wrist elbow and hand as tolerated. Antibiotics: 3 g Ancef IV prior to incision DVT Prophylaxis: Aspirin 81 mg twice daily starting tomorrow Landa: None Dressing: Maintain silver dressing x7 days. Okay to shower dressing on started on day 4 X-Rays: 2 weeks postop in the office Pain Medication: Percocet Rx upon discharge Follow-up: 2 weeks post-operatively with me in the office
--- NOTE | 2021-03-24 13:53 | SUR.PHASEI ---
patient monitored on etCO2 NL during pacu stay per eras protocol.
--- NOTE | 2021-03-24 17:20 | PCM.PN.HOSP ---
Subjective Subjective Mr. Madison is a 61-year-old morbidly obese white male who was brought to [facility] on 03/24/2021 for an elective right total shoulder arthroplasty. The patient had unfortunately failed conservative measures and had significant osteoarthritis. His surgery was performed without issue however postoperatively he required BiPAP for an extended period of time and had some uncontrolled pain requiring IV pain medication. The patient states he is not been diagnosed with sleep apnea however he saw Dr. Todd who recommended a sleep study. He was under the impression that Dr. Todd's office would be calling him to set up an appointment for an outpatient polysomnography but he never received a call and there was no follow-up. Otherwise his past medical history includes hypertension and morbid obesity. He is currently sitting on the edge of the bed eating Jell-O and appears comfortable. He is on supplemental oxygen at 2 L with an oxygen saturation of 98%. He is having significant right shoulder pain however at this time he appears comfortable. This initially was intended to be an outpatient procedure but with his postoperative hypoxia and increased pain medication requirement the patient was admitted for observation. We have been consulted for postoperative management with regards to his needs for BiPAP. Objective Data Objective Data Vital Signs: Vital Signs Temp Pulse Resp BP Pulse Ox 98.5 F 115 H 18 110/73 98 03/24/21 16:45 03/24/21 16:45 03/24/21 16:45 03/24/21 16:45 03/24/21 16:45 Oxygen Flow Rate (L/min) 2 Oxygen Delivery Method Nasal Cannula Weight: 136 kg Body Mass Index (BMI) 43.0 Intake & Output: Intake and Output for Last 24 Hours 03/22/21 03/23/21 03/24/21 23:59 23:59 23:59 Intake Total 2114 Balance 2114 Lab / Micro Data Labs: Laboratory Results - last 24 hr 03/24/21 06:34: POC Glucose 153 H Radiography Diagnostic Testing: Radiology Impression Shoulder X-Ray 03/24/21 12:17 IMPRESSION: Uncomplicated right shoulder arthroplasty. Electronically Signed: Jose David Gomez MD at 14:15 EST , Physical Exam Const alert, oriented x3 and no apparent distress Constitutional Narrative: Morbidly obese white male sitting on the edge of the bed with his feet dangling over the side, right arm is in a sling, patient is eating Jell-O and appears comfortable at this time Exam Limitations: no limitations Nutritional Appearance: morbidly obese HEENT head/scalp atraumatic, moist oral mucous membranes and oropharynx normal HEENT Narrative: Mallampati is 3, tongue is quite red from Jell-O intake, dentition is good, no thrush Head and Scalp: normocephalic Resp normal respiratory effort, no retractions, no use of accessory muscles and clear to auscultation bilaterally Resp Narrative: Distant secondary to body habitus but clear Auscultation: Negative for crackles, rales, rhonchi or wheezes Cardio regular rhythm, S1 normal heart sound, S2 normal heart sound, no murmurs, no rub, no gallops, no clicks and no JVD Cardio Narrative: Mild tachycardia GI normal to inspection, nondistended, normoactive bowel sounds, soft to palpation, non-tender and non-distended Extremity no clubbing, cyanosis or edema Peripheral Pulses: Yes pulses 2+ throughout Neuro oriented x3, CN's II-XII intact bilaterally and no focal motor deficits Sensorium / Orientation: awake and alert Assessment & Plan Assessment/Plan (1) Suspected sleep apnea: (2) Postoperative pain: (3) Status post total replacement of right shoulder: PLAN: Right shoulder osteoarthritis status post RSA -Postop day 0 -Pain management per primary service -Recommend bowel regimen -Maintain sling per primary Postoperative pain -Pain management per primary service -Block was unfortunately able to be performed secondary to body habitus Suspected SATYA -Patient has seen Dr. Todd and was under the impression referral would be made but has not been completed yet -AutoPap ordered -Pulm was consulted by primary -strongly recommend outpt PSG HTN -Continue home metoprolol Morbid obesity -BMI is 43.0 -Recommend weight loss DVT prophylaxis -Per primary Charges/Coding Visit Charges OBSV E&M: 62803 Subsequent observation care L2
[2021-03-24] MEDS: oxyCODONE 5 MG Tablet 10 MG PO ×2 (17:53→23:24)
--- NOTE | 2021-03-24 18:22 | SUR.PHASEI ---
AFTER HOSPITALIST SAW PATIENT IN PACU; ASSESSED AND PATIENT METS CRITERIA FOR MS3. PATIENT IS PRESENTING WELL AND IS NOW RESTING CONFORMABLY IN 323.
[2021-03-24] MEDS: Pregabalin 75 MG Capsule PO (19:26)
[2021-03-24] MEDS: Acetaminophen 500 MG Tablet 1000 MG PO (19:26)
[2021-03-24] MEDS: traMADol 50 MG Tablet PO (19:26)
[2021-03-24] MEDS: Cefazolin 2 GM in 0.9% Normal Saline 100 ML IV (19:26)
[2021-03-24] MEDS: Metoprolol Tartrate 50 MG Tablet PO (23:25)
[2021-03-24] MEDS: Celecoxib 200 MG Capsule PO (23:27)
[2021-03-24] MEDS: Senna/Docusate Sodium 1 Tablet 2 TABLET PO (23:27)
[2021-03-25] VITALS (9 sets, daily range): BP systolic 110–128; BP diastolic 60–76; PULSE 75–86; RESP 18–20; TEMP 36.6–36.8; O2SAT 95–98
[2021-03-25] MEDS: traMADol 50 MG Tablet PO ×4 (01:02→18:05)
[2021-03-25] MEDS: Cefazolin 2 GM in 0.9% Normal Saline 100 ML IV ×2 (01:02→09:00)
[2021-03-25] MEDS: oxyCODONE 5 MG Tablet 10 MG PO (03:57)
[2021-03-25] MEDS: Acetaminophen 500 MG Tablet 1000 MG PO ×2 (06:08→14:46)
[2021-03-25 07:04] LABS: Hematocrit 38.9 % (40-54); Hemoglobin 12.7 g/dL (13.0-16.5); Mean Corp Hgb Conc 32.6 g/dL (32-36); Mean Corpuscular Hgb 33.3 pg (27.0-32.0); Mean Corpuscular Volume 102.1 fL (80-94); Mean Platelet Vol. 10.4 fl (6.2-12.0); Platelet Count 467 K/mm3 (150-450); RBC Distribution Width CV 14.1 % (11.6-14.6); RBC Distribution Width SD 53.5 fl (35.1-43.9); Red Blood Count 3.81 M/mm3 (4.6-6.2); White Blood Count 21.2 K/mm3 (4.4-11.0)
--- NOTE | 2021-03-25 07:21 | PN.ORTHO_ITS ---
Subjective Subjective Patient seen and examined. Reports significant pain but states it is relatively controlled with his current pain regimen. States he was able to get some sleep last night. Denies any numbness or tingling in the right upper extremity. Denies any fevers, chills, nausea vomiting, chest pain or shortness of breath. Objective Data Objective Data Vital Signs: Vital Signs Temp Pulse Resp BP Pulse Ox 98.0 F 76 18 128/73 H 98 03/25/21 01:06 03/25/21 01:06 03/25/21 01:06 03/25/21 01:06 03/25/21 01:06 Oxygen Flow Rate (L/min) 2 Oxygen Delivery Method Nasal Cannula Weight: 299 lb 13.259 oz Body Mass Index (BMI) 43.0 Intake & Output: Intake and Output for Last 24 Hours 03/23/21 03/24/21 03/25/21 23:59 23:59 23:59 Intake Total 2225 / 2225 110 / 110 Balance 2225 / 2225 110 / 110 Lab / Micro Data Result Diagrams: 03/25/21 06:30 03/25/21 06:30 Labs: Laboratory Results - last 24 hr 03/25/21 06:30: WBC 21.2 H, RBC 3.81 L, Hgb 12.7 L, Hct 38.9 L, MCV 102.1 H, MCH 33.3 H, MCHC 32.6, RDW Std Deviation 53.5 H, RDW Coeff of Shirley 14.1, Plt Count 467 H, MPV 10.4 Radiography Diagnostic Testing: Radiology Impression Shoulder X-Ray 03/24/21 12:17 IMPRESSION: Uncomplicated right shoulder arthroplasty. Electronically Signed: Jose David Gomez MD at 14:15 EST , Physical Exam Narrative General - A&Ox3, NAD. VSS/AF. On 2 L nasal cannula Right upper Extremity - SILT & 5/5 in radial, ulnar, musculocutaneous, axil rain, and median nerve distributions. Radial, ulnar pulses 2+. Compartments soft and compressible. BCR in finger tips. Deltopectoral incisional dressing C/D/I. Assessment & Plan Assessment/Plan (1) Status post total replacement of right shoulder: PLAN: POD#1 s/p right reverse shoulder arthroplasty - Pain control - Medicine following for medical management -appreciate input. Pain appears controlled enough for home discharge today if stable from a medical standpoint. - PT/OT -nonweightbearing right upper extremity. Okay for range of motion as tolerated right elbow, wrist and hand. Pendulums only for 2 weeks - DVT PPX -early mobilization, SCDs, aspirin 81 mg twice daily - Case management - D/C planning
[2021-03-25 07:31] LABS: Anion Gap 7 (5-15); BUN 27 mg/dL (7-18); BUN/Creat Ratio 20.1 RATIO (10-20); Calcium,Total 8.5 mg/dL (8.5-10.1); Chloride 104 mmol/L (98-107); Creatinine, Serum 1.34 mg/dL (0.70-1.30); EST Glomerular Filtration Rate 58 mL/min (>60); Est Glom Filt Rate - Afr Amer 70 mL/min (>60); Estimated Creatinine Clearance 59.77 ml/min; Glucose 136 mg/dL (74-106); Potassium 4.6 mmol/L (3.5-5.1); Sodium Level 135 mmol/L (136-145)
[2021-03-25] MEDS: Senna/Docusate Sodium 1 Tablet 2 TABLET PO (09:00)
[2021-03-25] MEDS: Celecoxib 200 MG Capsule PO (09:00)
[2021-03-25] MEDS: Aspirin 81 MG TAB.CHEW PO ×2 (09:00→18:05)
[2021-03-25] MEDS: Pregabalin 75 MG Capsule PO (09:00)
[2021-03-25] MEDS: Metoprolol Tartrate 50 MG Tablet PO (09:01)
--- NOTE | 2021-03-25 09:40 | CASEMGMT ---
RN ATILIO FOUNDRY SUPERINTENDANT CM to room to meet with patient for initial transition planning/care coordination assessment. BATSHEVA TRIMBLE introduced self and role at [facility]. Pt voices understanding and consents to assessment at this time. Pt resting in bed, in no distress at this time. Pt is A/O at this time and answers all questions appropriately. Care providers, pharmacy, and demographics verified/updated at this time. PCP: Dr Albertina Gomez @ [facility] Practice Specialists: Dr Brambila--ortho. Dr Christensen--container washer machine in [place]. Preferred Pharmacy: [facility] Retail Insurance: RR MCR, AARP Prescription Benefit: Yes Living Will/HPOA: Has both. , Teresa, is HPOA LNOK: , Teresa. 2 daughters Living Arrangements: Lives w/ in one-story home w/2 steps to enter. Independent prior to surgery. and pt shared home mgmt tasks. and 2 daughters, who live close, able to assist pt as needed. Transportation: Pt states drives self and states no transportation concerns at this time. also drives DME: States has the following DME: walk-in tub w/seat, back brace, walker, O2 @ 1l/m @ HS thru [employer] in [place]. Has concentrator only. Pt states no need for further DME at this time. HHC/SNF: No hx of SNF. Had [facility] in the past after having COVID and on the vent in Feb, 2020. Pt wishes to return home and states has no concerns with going home at time of discharge. Denies need for HHC. CM to follow for any discharge planning/needs. Pt voices no concerns/needs at this time. Advised pt to ask for CM if any questions/concerns/needs arise. Voices understanding. PLAN: Home w/family support and discharge plans in place. Leonor ALANIS RN, CM
--- NOTE | 2021-03-25 09:50 | CASEMGMT ---
RN CM TECHNICAL PHOTOGRAPHER CM to room to meet with patient for initial transition planning/care coordination assessment. RN ATILIO introduced self and role at [facility]. Pt voices understanding and consents to assessment at this time. Pt sitting up in chair in room in no distress at this time. Pt is A/O at this time and answers all questions appropriately. Care providers, pharmacy, and demographics verified/updated at this time. PCP: Dr Lopez Specialists: Dr Alvarez-ortho. Dr Todd--pulmonology. Pt last saw him in Sep, 2020. Pt states they were to call him to schedule sleep study but he did not receive call. He did not f/u w/them and therefore did not have sleep study done. Dr Donovan- ENT. Preferred Pharmacy: [facility], [place] Insurance: [place] Living Will/HPOA: Has both. Brother, Alexandre, is HPOA LNOK: Brother/POAAlexandre. Mother, Marian Living Arrangements: Lives w/his girlfriend and pt's 96-yr-old mother, Marian, in one-story home w/basement w/2 steps to enter. Pt states he mostly stays in the basement. 10-12 steps to basement with bilat rails that pt states he navigates well. Pt independent prior to surgery. Pt and GF share home tasks. GF able to assist pt as needed. Transportation: Pt states drives self and states no transportation concerns at this time. GF does not drive. Pt's brother, Alexandre, will be taking him home @ discharge. DME: Denies using any DME and denies needs. 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 No hx of HHC. Denies need for HHC. Pt wishes to return home and states has no concerns with going home at time of discharge. Pt works full-time. CM to follow for any discharge planning/needs. Pt voices no concerns/needs at this time. Advised pt to ask for CM if any questions/concerns/needs arise. Voices understanding. PLAN: Home w/discharge plans in place. Leonor ALANIS RN, CM
--- NOTE | 2021-03-25 11:24 | CPS ---
started by nursing
--- NOTE | 2021-03-25 12:29 | PN.HOSP_ITS ---
Subjective Subjective Patient seen and examined. He had no active complaints and felt well. He had an uneventful night. He denied any chest pain, palpitations, dizziness, nausea vomiting or diarrhea. Review of systems otherwise negative. Objective Data Objective Data Vital Signs: Vital Signs Temp Pulse Resp BP Pulse Ox 97.9 F 81 18 123/76 H 95 03/25/21 07:15 03/25/21 09:10 03/25/21 07:15 03/25/21 07:15 03/25/21 08:16 Oxygen Flow Rate (L/min) 2 Oxygen Delivery Method Nasal Cannula Weight: 299 lb 13.259 oz Body Mass Index (BMI) 43.0 Intake & Output: Intake and Output for Last 24 Hours 03/23/21 03/24/21 03/25/21 23:59 23:59 23:59 Intake Total 2225 / 2225 220 / 220 Balance 2225 / 2225 220 / 220 Lab / Micro Data Result Diagrams: 03/25/21 06:30 03/25/21 06:30 Labs: Laboratory Results - last 24 hr 03/25/21 06:30: WBC 21.2 H, RBC 3.81 L, Hgb 12.7 L, Hct 38.9 L, MCV 102.1 H, MCH 33.3 H, MCHC 32.6, RDW Std Deviation 53.5 H, RDW Coeff of Shirley 14.1, Plt Count 467 H, MPV 10.4 03/25/21 06:30: Sodium 135 L, Potassium 4.6, Chloride 104, Carbon Dioxide 24.0, Anion Gap 7, BUN 27 H, Creatinine 1.34 H, Estim Creat Clear Calc 59.77, Est GFR (MDRD) Af Amer 70, Est GFR (MDRD) Non-Af 58 L, BUN/Creatinine Ratio 20.1 H, Glucose 136 H, Calcium 8.5 Radiography Diagnostic Testing: Radiology Impression Shoulder X-Ray 03/24/21 12:17 IMPRESSION: Uncomplicated right shoulder arthroplasty. Electronically Signed: Jose David Gomez MD at 14:15 EST , Physical Exam Const alert, oriented x3 and no apparent distress Exam Limitations: no limitations HEENT head/scalp atraumatic and moist oral mucous membranes Head and Scalp: normocephalic Eyes PERRL, EOMs intact bilaterally and conjunctivae normal Neck no lymphadenopathy Resp normal respiratory effort, no retractions, no use of accessory muscles and clear to auscultation bilaterally Cardio regular rate, regular rhythm, S1 normal heart sound, S2 normal heart sound and no murmurs GI normal to inspection, nondistended, normoactive bowel sounds, soft to palpation, non-tender and non-distended Extremity Extremity Narrative: LUE in sling Peripheral Pulses: Yes pulses 2+ throughout Skin no rashes or lesions noted Neuro oriented x3, CN's II-XII intact bilaterally and moves all extremities Sensorium / Orientation: awake and alert Psych affect normal Assessment & Plan Assessment/Plan (1) Status post total replacement of right shoulder: (2) Suspected sleep apnea: PLAN: #RIght shoulder arthritis s/p right shoulder arthroplasty * today is POD 0 * management as per primary team orthopedics * incentive spirometry * PT.OT on board * fall precautions * #Suspected SATYA * Patient was admitted due to concerns about possible hypoxia while sleeping. Patient states he has been told that he may have sleep apnea and had an outpatient sleep apnea test but states he never followed up on the results and was never contacted. * To follow-up with pulmonology on outpatient basis. Will benefit from sleep apnea test on outpatient basis * #Hypertension: on Metoprolol #Morbid obesity: BMI is 43. Consulted weight loss and DASH diet. Complicates acute care, expected recovery and prognosis DVT prophylaxis: As per primary team Patient stable for discharge from hospital standpoint. Charges/Coding Visit Charges Inpatient E&M: 83278 Subs Hosp L2
--- NOTE | 2021-03-25 17:12 | PCM.DC.SUM ---
Providers Date of Admission: 03/24/21 Primary Care Physician: Dr. Shin Lopez MD Consultations 03/24/21 16:40 Consult: Hospitalist Routine Consulting Provider: Yevgeniy Magdaleno Reason for Consult: POST OP PAIN CONTROL EMERGENT Consult: No MD Notified: Yes Date Notified: 03/24/21 Time Notified: 16:40 Method of Notification: Verbal Reason For Visit: RT ANATOMIC VS REVERSE TOTAL SHOULDER Diagnosis Discharge Diagnosis (1) Status post total replacement of right shoulder: Status: Acute Code(s): Z96.611 - Presence of right artificial shoulder joint (2) Suspected sleep apnea: Status: Acute Code(s): R29.818 - Other symptoms and signs involving the nervous system Medications at Discharge Home Medications metoprolol tartrate 50 mg PO BID 06/16/17 celecoxib 200 mg PO BID 14 Days #28 cap 03/25/21 tramadol 50 mg PO Q6 7 Days #28 tab 03/25/21 Hospital Course Summary of Care Provided Minutes Spent on Discharge: 15 Hospital Course: Patient underwent right reverse shoulder arthroplasty 03/24/2021. Being unable to receive a peripheral nerve block, patient has significant pain postoperatively. Requiring high-dose narcotic pain medication as well as a history of suspected obstructive sleep apnea, patient had issues with apnea in the PACU. The decision was made to place patient in observation overnight to monitor his breathing and for pain control. Respiratory therapy and the hospitalist service was consulted. Patient's pain improved within the day and he was able to wean from nasal cannula oxygen and was breathing on his own with good oxygen saturation. He worked well with physical and occupational therapies. He was able to be safely discharged to home on postoperative day #1. Physical Exam Narrative General - A&Ox3, NAD. VSS/AF. On 2 L nasal cannula Right upper Extremity - SILT & 5/5 in radial, ulnar, musculocutaneous, axillary, and median nerve distributions. Radial, ulnar pulses 2+. Compartments soft and compressible. BCR in finger tips. Deltopectoral incisional dressing C/D/I. Weight / BMI Weight Weight: 299 lb 13.259 oz Body Mass Index (BMI) 43.0 ABG / Lab / Microbiology Data Result Diagrams: 03/25/21 06:30 03/25/21 06:30 Laboratory: Laboratory Results - last 24 hr 03/25/21 06:30: WBC 21.2 H, RBC 3.81 L, Hgb 12.7 L, Hct 38.9 L, MCV 102.1 H, MCH 33.3 H, MCHC 32.6, RDW Std Deviation 53.5 H, RDW Coeff of Shirley 14.1, Plt Count 467 H, MPV 10.4 03/25/21 06:30: Sodium 135 L, Potassium 4.6, Chloride 104, Carbon Dioxide 24.0, Anion Gap 7, BUN 27 H, Creatinine 1.34 H, Estim Creat Clear Calc 59.77, Est GFR (MDRD) Af Amer 70, Est GFR (MDRD) Non-Af 58 L, BUN/Creatinine Ratio 20.1 H, Glucose 136 H, Calcium 8.5 Meaningful Use Info Meaningful Use Diagnoses (Choose all that apply): None applicable Discharge Plan Admission Admit Date/Time: 03/24/21 15:31 Attending Provider: Mariangel Wilson Primary Care Provider: Shin Lopez Consulting Providers: Yevgeniy Magdaleno Instructions Additional Instructions / Restrictions: Follow preprinted instructions from your surgeons office. Discharge Orders/Prescriptions Prescriptions: New tramadol 50 mg Tablet 50 mg PO Q6 7 Days Qty: 28 RF: 0 celecoxib 200 mg capsule 200 mg PO BID 14 Days Qty: 28 RF: 0 No Action metoprolol tartrate 50 MG tablet 50 mg PO BID RF: 0 Referrals / Follow Up: Andrea Alvarez DO [STAFF PHYSICIAN] - Within 2 Weeks Shin Lopez MD [Primary Care Provider] - Abraham Todd MD [STAFF PHYSICIAN] - Within 2 Weeks Disposition Disposition (needs filled in before D/C Order can be placed): Home, Self Care
== END 2021-03-25 18:14 | disposition home or self-care (01) ==
LOC: SDC 17:26 → MS3 17:26
PROVIDERS: Admitting Provider Student in an Organized Health Care Education/Training Program; PCP Family Medicine; Referring Provider Student in an Organized Health Care Education/Training Program; Visit Provider Student in an Organized Health Care Education/Training Program
PROC: (CPT 23472; principal; 2021-03-24 07:45)
DX: M19.011 Primary osteoarthritis, right shoulder (principal); I47.1 Supraventricular tachycardia; E66.01 Morbid (severe) obesity due to excess calories; Z68.41 Body mass index [BMI] 40.0-44.9, adult; R09.02 Hypoxemia; I10 Essential (primary) hypertension; F17.210 Nicotine dependence, cigarettes, uncomplicated; Z79.899 Other long term (current) drug therapy
CPT/HCPCS: 23472; 01638; 36415; 71046; 73030; 80048; 82962; 85027; 85610; 85730; 96365; 96366; 97166; 99218; 99251; 99406; C1776; J7120; G0378; G0463; J2405

== ENCOUNTER 2021-05-16 11:53 | Outpatient (CLI) | payer BC, SELFPAY ==
[2021-05-16 15:11] LABS: Absolute Lymphocyte Count 3.71 X10^3/uL (0.83-4.51); Absolute Neutrophil Count 5.2 X10^3/uL (2.0-7.7); Basophil% 0.9 % (0-1); Eosinophil# 0.46 X10^3/uL; Eosinophils% 4.2 % (0-5); Hematocrit 42.1 % (40-54); Hemoglobin 13.7 g/dL (13.0-16.5); Lymphocyte # 3.71 X10^3/ul (0.83-4.51); Lymphocyte % 33.5 % (19-41); Mean Corp Hgb Conc 32.5 g/dL (32-36); Mean Corpuscular Hgb 32.4 pg (27.0-32.0); Mean Corpuscular Volume 99.5 fL (80-94); Monocyte# 1.54 X10^3/uL; Monocyte% 13.9 % (0-10); NRBC Flagged by Analyzer 0 % (0-5); Neutrophil # 5.21 X10^3/uL (2.7-7.7); POSITIVE DIFFERENTIAL YES; Platelet Count 532 K/mm3 (150-450); RBC Distribution Width CV 13.8 % (11.6-14.6); RBC Distribution Width SD 50.4 fl (35.1-43.9); Red Blood Count 4.23 M/mm3 (4.6-6.2); White Blood Count 11.1 K/mm3 (4.4-11.0)
[2021-05-16 15:12] LABS: Differential Indicated SCAN CRITERIA MET
[2021-05-16 15:32] LABS: Platelet Estimate MOD INC (ADEQ); Red Cell Morphology NORM C+C NORMAL (NORM C&C)
[2021-05-17 13:27] LABS: Pathologist Review Reviewed
== END 2021-05-16 23:59 | disposition home or self-care (01) ==
LOC: MFPLAB 11:54
PROVIDERS: PCP Family Medicine; Visit Provider Family Medicine
DX: K92.1 Melena (principal)
CPT/HCPCS: 36415; 85025

== ENCOUNTER 2021-05-30 17:39 | Outpatient (CLI) | payer BC, SELFPAY ==
--- NOTE | 2021-05-30 17:42 | CT_ITS ---
STUDY: CT ABDOMEN AND PELVIS WITH CONTRAST REASON FOR EXAM: Male, 61 years old. abd pain RADIATION DOSAGE (If Supplied By Facility): CTDIvol = ( 18.74 ) mGy, DLP = ( 1353.74 ) mGycm TECHNIQUE: Transaxial images were obtained from the dome of the diaphragm to the symphysis pubis without oral contrast. Oral and amp; IV Readi-CAT and amp; 100mL Isovue-300 was administered. Sagittal and coronal images were reconstructed. Individualized dose optimization techniques were used for this CT. COMPARISON: January 23, 2015. FINDINGS: The visualized lung bases are unremarkable. The visualized portions of the heart are within normal limits. Normal liver. Normal gallbladder and extrahepatic biliary system. The spleen is surgically absent.. Normal pancreas. Normal bilateral adrenal glands. Normal right kidney. Normal left kidney. Normal visualized stomach. Normal small intestine. Normal colon. The appendix is visualized and appears normal. Normal abdominal aorta. Normal inferior vena cava. Normal retroperitoneum. Normal urinary bladder. . There is a small umbilical hernia containing adipose tissue which measures 1.46 cm transversely. Normal osseous structures. CT/Abdomen/Pelvis WITH Contrast IMPRESSION: There is a 1.46 cm umbilical hernia containing adipose tissue. Status post splenectomy. Electronically Signed: Vinny Nash MD at 23:56 EDT ,
[2021-05-30 18:00] LABS: CREATININE FINGERSTICK 0.8 mg/dL (0.70-1.30); EGFR FINGERSTICK > 60.0000 mL/min (>60)
== END 2021-05-30 23:59 | disposition home or self-care (01) ==
LOC: CT 17:40
PROVIDERS: PCP Family Medicine; Visit Provider Surgery
DX: R10.84 Generalized abdominal pain (principal); K43.2 Incisional hernia without obstruction or gangrene
CPT/HCPCS: 74177; Q9967

== ENCOUNTER 2021-06-10 07:51 | Day surgery (SDC) | payer BC, SELFPAY ==
[2021-06-10 08:11] VITALS: BP 130/61; PULSE 83; RESP 16; TEMP 36.1; O2SAT 100; BMI 45.0
[2021-06-10] MEDS: Lactated Ringers 1,000 ML 15 ML IV (08:15)
--- NOTE | 2021-06-10 08:47 | HP.PCM_ITS ---
History and Physical Date of Admission: 06/10/21 Intake Intake Visit Reasons: FU TO DISCUSS CT RESULTS Chief Complaint: incisional hernia Allergies No Known Allergies Allergy (Verified 06/03/21 14:00) Medications metoprolol tartrate 50 mg PO BID 06/16/17 [History Confirmed 06/03/21] celecoxib 200 mg PO BID 14 Days #28 cap 03/25/21 [Rx Confirmed 06/03/21] PFSH Medical History Alcohol use Heartburn Hemorrhoid History of Mcclain's palsy Hypertension Leukocytosis Paroxysmal supraventricular tachycardia Smoker Thrombocytosis Surgical History H/O arthroscopy of left knee History of colonoscopy (~06/2010) History of radiofrequency ablation procedure for cardiac arrhythmia (08/20/17) History of right shoulder replacement History of splenectomy (~1997) Family History Mother Heart disease Cancer Father Cancer Social History Smoking Status: Former smoker quit date: 05/14/17 pack-years: 35 alcohol intake: current alcohol intake frequency: a few times a month Alcohol type: wine HPI HPI HPI: REJI CARRENO, is a 61 M who presents to the office today for ROS General General: No weight change or fatigue HEENT HEENT: No difficulty swallowing Endo Endocrine: No thyroid disease Musc Musculoskeletal: No back problems or arthritis Cardio Cardiovascular: No pacemaker, heart disease, atrial fibrillation, high blood pressure, heart attack, heart stent, palpitations or chest pain Psych Psychiatric: No depression or anxiety Resp Respiratory: No shortness of breath, No cough, No COPD, No asthma and No emphysema Gastro Gastrointestinal: Yes abdominal pain, No nausea or vomiting, No diarrhea, No constipation, Yes blood in stool, No acid reflux, No hemorrhoids, No ulcers, No gallbladder problem and No black,tarry stools Filemon Hematologic: No blood thinners Exam Const General: cooperative Orientation: alert and oriented x3 HENMT Head: normal to inspection Neck Neck: normal visual inspection and full ROM Chest Chest palpation & inspection: normal inspection of the chest Resp Effort & Inspection: normal respiratory effort Auscultation: clear to auscultation bilaterally Cardio Rate: regular rate Rhythm: regular rhythm GI Inspection: non-distended Palpation: soft and nontender Skin General: no rashes or lesions noted Neuro General: patient alert and patient oriented x3 Extrem General: full ROM Psych Appearance: grossly normal Mental Status: mental status grossly normal Assessment and Plan Assessment and Plan (1) Abdominal pain: Status: Acute Qualifiers: Abdominal location: generalized Qualified Code(s): R10.84 - Generalized abdominal pain (2) Blood in stool: Status: Acute Plan - Dr. Yanick Osullivan MD: The patient had a CT scan and this showed several small hernia defects in the midline. I discussed hernia repair with him and he would like this addressed in the fall after summer. He will follow-up for discussion of surgery at that time. Patient is also noting that he has been having bright red blood in his stool. Patient does not report any pain on defecation. He has no family history of colon cancer. His last colonoscopy was about 11 years ago so he is due for colonoscopy. I will check for the presence of hemorrhoids and then decide on hemorrhoidectomy for him. I will plan on that for him at this time and we will discuss hernia in the future. I explained endoscopy in detail to the patient. I explained the risks including but not limited to stroke or heart attack with anesthesia, perforation of the GI tract, bleeding, infection. I explained that any of these could necessitate further emergency surgery. The patient understands and all questions were answered sufficiently. The patient wishes to proceed with procedure. Yanick Osullivan MD Pager: [facility] [address] [place] [address], [address] [place] [address] Office: I have re-examined the patient. There are no clinical changes since date of exam.
[2021-06-10 09:20] VITALS: BP 130/61; BP 96/58; PULSE 81; RESP 16; TEMP 36.4; O2SAT 95
--- NOTE | 2021-06-10 09:21 | OP.COLON_ITS ---
Patient Name: Kevan Madison Procedure Date: 06/10/2021 8:57 AM Date of : 1960 Age: 61 Procedure: Colonoscopy Indications: Rectal bleeding Providers: Yanick Osullivan MD Medicines: Monitored Anesthesia Care Patient Profile: This is a 61 year old male. Refer to note in patient chart for documentation of history and physical. Last Colonoscopy: none. The patient's first colonoscopy is today. Complications: No immediate complications. Procedure: Pre-Anesthesia Assessment: - Prior to the procedure, a History and Physical was performed, and patient medications and allergies were reviewed. The patient's tolerance of previous anesthesia was also reviewed. The risks and benefits of the procedure and the sedation options and risks were discussed with the patient. All questions were answered, and informed consent was obtained. Prior Anticoagulants: The patient has taken no previous anticoagulant or antiplatelet agents. After reviewing the risks and benefits, the patient was deemed in satisfactory condition to undergo the procedure. After I obtained informed consent, the scope was passed under direct vision. Throughout the procedure, the patient's blood pressure, pulse, and oxygen saturations were monitored continuously. The colonoscope was introduced through the anus and advanced to the cecum, identified by appendiceal orifice and ileocecal valve. The colonoscopy was performed without difficulty. The patient tolerated the procedure well. The quality of the bowel preparation was good. Scope In: 9:07:35 AM Scope Withdrawal Time 0 hours 6 minutes 25 seconds Scope Out: 9:15:59 AM Total Procedure Duration Time 0 hours 8 minutes 24 seconds Findings: The entire examined colon appeared normal on direct and retroflexion views. Non-bleeding internal hemorrhoids were found during retroflexion. The hemorrhoids were small. Impression: - The entire examined colon is normal on direct and retroflexion views. - No specimens collected. Recommendation: - Discharge patient to home. - Resume previous diet. - Continue present medications. - Repeat colonoscopy in 10 years for screening purposes. Procedure Code(s): --- Professional --- 38897, Colonoscopy, flexible; diagnostic, including collection of specimen(s) by brushing or washing, when performed (separate procedure) Diagnosis Code(s): --- Professional --- K62.5, Hemorrhage of anus and rectum CPT copyright 2017 [employer] [place] [employer]. All rights reserved. The codes documented in this report are preliminary and upon automatic nailing machine operator review may be revised to meet current compliance requirements. Yanick Osullivan MD 06/10/2021 9:20:27 AM This report has been signed electronically. Number of Addenda: 0 Note Initiated On: 06/10/2021 8:57 AM
--- NOTE | 2021-06-10 09:22 | OP.CCLET_ITS ---
06/10/2021 Shin Lopez MD [address] [place] [address] Re : Colonoscopy procedure for Kevan Madison Dear Dr. Lopez This procedure was performed on Thursday, June 10, 2021. My impressions and recommendations are as follows: Impressions : - The entire examined colon is normal on direct and retroflexion views. - No specimens collected. Recommendations : - Discharge patient to home. - Resume previous diet. - Continue present medications. - Repeat colonoscopy in 10 years for screening purposes. My findings are described in the full procedure note, which is enclosed. If I can be of further assistance, please feel free to contact me at Doctor phone number(s): , Work: . Sincerely, Yanick Osullivan MD 06/10/2021 9:20:27 AM This report has been signed electronically.
[2021-06-10 09:25] VITALS: BP 130/61; BP 98/64; PULSE 79; RESP 18; O2SAT 93
[2021-06-10 09:30] VITALS: BP 109/82; BP 130/61; PULSE 80; RESP 18; O2SAT 94
[2021-06-10 09:35] VITALS: BP 129/79; BP 130/61; PULSE 79; RESP 18; TEMP 36.8; O2SAT 95
[2021-06-10 09:45] VITALS: BP 130/61
== END 2021-06-10 09:59 | disposition home or self-care (01) ==
LOC: EN 07:52 → AC 07:52
PROVIDERS: PCP Family Medicine; Referring Provider Family Medicine; Visit Provider Surgery
PROC: 0DJD8ZZ Inspection of Lower Intestinal Tract, Via Natural or Artificial Opening Endoscopic (ICD-10-PCS; CPT 45378; principal; 2021-06-10 08:55)
DX: K62.5 Hemorrhage of anus and rectum (principal); I47.1 Supraventricular tachycardia; Z87.891 Personal history of nicotine dependence; I10 Essential (primary) hypertension; R10.84 Generalized abdominal pain; K64.8 Other hemorrhoids; Z96.611 Presence of right artificial shoulder joint
CPT/HCPCS: 45378; J7120; J2405

== ENCOUNTER → 2021-07-01 | Outpatient (CLI) | payer BC, SELFPAY ==
[2021-07-01 10:34] LABS: Absolute Neutrophil Count 4.4 X10^3/uL (2.0-7.7); Basophil# 0.07 X10^3/uL; Basophil% 0.7 % (0-1); Eosinophil# 0.42 X10^3/uL; Eosinophils% 4.5 % (0-5); Hematocrit 39.4 % (40-54); Hemoglobin 12.7 g/dL (13.0-16.5); Lymphocyte % 30.9 % (19-41); Mean Corp Hgb Conc 32.2 g/dL (32-36); Mean Corpuscular Hgb 32.1 pg (27.0-32.0); Mean Corpuscular Volume 99.5 fL (80-94); Mean Platelet Vol. 10.3 fl (6.2-12.0); Monocyte# 1.58 X10^3/uL; Monocyte% 16.8 % (0-10); NRBC Flagged by Analyzer 0 % (0-5); Neutrophil # 4.39 X10^3/uL (2.7-7.7); Neutrophil % 46.7 % (47-70); POSITIVE DIFFERENTIAL YES; Platelet Count 528 K/mm3 (150-450); RBC Distribution Width CV 14.5 % (11.6-14.6); RBC Distribution Width SD 52.8 fl (35.1-43.9); Red Blood Count 3.96 M/mm3 (4.6-6.2); White Blood Count 9.4 K/mm3 (4.4-11.0)
[2021-07-01 10:36] LABS: Differential Indicated SCAN CRITERIA MET
== END | disposition home or self-care (01) ==
LOC: MFPLAB 08:58
PROVIDERS: PCP Family Medicine; Referring Provider Family Medicine; Visit Provider Family Medicine
DX: K92.1 Melena (principal)
CPT/HCPCS: 36415; 85025

== ENCOUNTER → 2021-10-28 | Outpatient (CLI) | payer BC, SELFPAY ==
--- NOTE | 2021-10-28 07:42 | CT_ITS ---
STUDY: CT RIGHT SHOULDER REASON FOR EXAM: Male, 61 years old. MAR PROTOCOL RADIATION DOSAGE (If Supplied By Facility): CTDIvol = ( 53.61 ) mGy, DLP = ( 1510.53 ) mGycm TECHNIQUE: The patient was scanned in a multi detector CT scanner. High resolution transaxial imaging was performed without the administration of intravenous contrast material. Sagittal and coronal images were reconstructed. Individualized dose optimization techniques were used for this CT. COMPARISON: CT of the right shoulder dated March 01, 2021. Right shoulder x-ray dated March 24, 2021 FINDINGS: Stable right shoulder reverse shoulder arthroplasty hardware without demonstrated complications of loosening or osteolysis or infection. No cortical erosion or periosteal reaction is present. No acute or healed fracture is seen. No edema or swelling is seen in the surrounding muscles or subcutaneous fat. No subcutaneous air or fluid collections are present. Diffuse subcentimeter right axillary lymphadenopathy is present likely due to chronic inflammation or reactivity. Supraclavicular and right neck subcentimeter lymphadenopathy is also visualized. No visualized consolidation or pulmonary edema in the included portions of the right lung. Normal coracoid process. Normal scapula. Normal visualized lateral clavicle. Normal acromioclavicular articulation. There is a Type II morphology (curved), with a neutral orientation. Unremarkable visualized muscles and soft tissue structures. CT/Extremity Upper without Contra IMPRESSION: 1. Stable right shoulder prosthetic components without demonstrated complications 2. No acute fracture 3. No significant soft tissue on the malleus seen 4. Right axillary and supraclavicular and lower neck subcentimeter lymphadenopathy likely due to chronic inflammation or reactive edema Electronically Signed: Filemon Barnes MD at 15:34 EDT ,
== END | disposition home or self-care (01) ==
LOC: CT 07:41
PROVIDERS: PCP Family Medicine; Referring Provider Student in an Organized Health Care Education/Training Program; Visit Provider Student in an Organized Health Care Education/Training Program
DX: Z96.611 Presence of right artificial shoulder joint (principal)
CPT/HCPCS: 73200

== ENCOUNTER → 2022-02-23 | Outpatient (CLI) | payer BC, SELFPAY ==
[2022-02-23 18:02] LABS: Vitamin D,25 Hydroxy 10.6 ng/mL
[2022-02-23 18:09] LABS: Anion Gap 7 (5-15); BUN 17 mg/dL (7-18); BUN/Creat Ratio 16.5 RATIO (10-20); Calcium,Total 8.9 mg/dL (8.5-10.1); Chloride 106 mmol/L (98-107); Cholesterol 137 mg/dL (200); Creatinine, Serum 1.03 mg/dL (0.70-1.30); EST Glomerular Filtration Rate 78 mL/min (>60); Est Glom Filt Rate - Afr Amer 94 mL/min (>60); Glucose 202 mg/dL (74-106); High Density Lipoprotein 37 mg/dL; PSA,Total - Annual Screen 3.71 ng/mL (0.00-4.00); Potassium 4.7 mmol/L (3.5-5.1); Sodium Level 139 mmol/L (136-145); Thyroid Stim Hormone (TSH) 0.89 uIU/mL (0.358-3.74); Triglycerides 142 mg/dL; Very Low Density Lipoprotein 28 mg/dL (5-40)
== END | disposition home or self-care (01) ==
LOC: MFPLAB 14:35
PROVIDERS: PCP Family Medicine; Visit Provider Family Medicine
DX: Z00.00 Encounter for general adult medical examination without abnormal findings (principal)
CPT/HCPCS: 36415; 80048; 80061; 82306; 84153; 84403; 84443; G0103

== ENCOUNTER → 2022-05-22 | Outpatient (CLI) | payer BC, SELFPAY ==
[2022-05-22 17:36] LABS: Absolute Neutrophil Count 9.7 X10^3/uL (2.0-7.7); Basophil# 0.06 X10^3/uL; Basophil% 0.4 % (0-1); Eosinophils% 1.4 % (0-5); Hematocrit 40.4 % (40-54); Hemoglobin 12.7 g/dL (13.0-16.5); Lymphocyte % 16.2 % (19-41); Mean Corp Hgb Conc 31.4 g/dL (32-36); Mean Corpuscular Volume 92.2 fL (80-94); Mean Platelet Vol. 10.3 fl (6.2-12.0); Monocyte# 1.85 X10^3/uL; NRBC Flagged by Analyzer 0 % (0-5); Neutrophil % 68.5 % (47-70); POSITIVE DIFFERENTIAL YES; Platelet Count 647 K/mm3 (150-450); RBC Distribution Width CV 14.8 % (11.6-14.6); RBC Distribution Width SD 49.4 fl (35.1-43.9); Red Blood Count 4.38 M/mm3 (4.6-6.2); White Blood Count 14.2 K/mm3 (4.4-11.0)
[2022-05-22 17:53] LABS: ALB/GLOB Ratio 0.9 RATIO (0.9-2.4); AST(SGOT) 16 U/L (15-37); Alanine Aminotransfer ALT/SGPT 23 U/L (16-61); Albumin, Serum 3.3 g/dL (3.2-5.0); Alkaline Phosphatase 80 U/L (45-117); Anion Gap 2 (5-15); BUN 10 mg/dL (7-18); BUN/Creat Ratio 10.9 RATIO (10-20); Calcium,Total 8.5 mg/dL (8.5-10.1); Chloride 107 mmol/L (98-107); Cholesterol 93 mg/dL (200); Creatinine, Serum 0.92 mg/dL (0.70-1.30); EST Glomerular Filtration Rate 89 mL/min (>60); Est Glom Filt Rate - Afr Amer 108 mL/min (>60); Globulin 3.7 g/dL (2.2-4.2); Glucose 116 mg/dL (74-106); High Density Lipoprotein 30 mg/dL; Potassium 4.1 mmol/L (3.5-5.1); Sodium Level 134 mmol/L (136-145); Triglycerides 111 mg/dL; Very Low Density Lipoprotein 22 mg/dL (5-40)
[2022-05-22 18:01] LABS: Differential Indicated SCAN CRITERIA MET
[2022-05-22 18:02] LABS: Hemoglobin A1c 6.7 % (3.8-5.6)
[2022-05-22 19:20] LABS: Differential Comment SCANNED
[2022-05-24 10:49] LABS: Pathologist Review Reviewed
== END | disposition home or self-care (01) ==
LOC: MFPLAB 16:27
PROVIDERS: PCP Family Medicine; Visit Provider Family Medicine
DX: E11.9 Type 2 diabetes mellitus without complications (principal); R10.9 Unspecified abdominal pain
CPT/HCPCS: 36415; 80053; 80061; 83036; 85025

== ENCOUNTER → 2022-08-30 | Outpatient (CLI) | payer BC, SELFPAY ==
[2022-08-30 15:13] LABS: Absolute Lymphocyte Count 3.21 X10^3/uL (0.83-4.51); Absolute Neutrophil Count 5.8 X10^3/uL (2.0-7.7); Basophil# 0.07 X10^3/uL; Basophil% 0.6 % (0-1); Eosinophil# 0.39 X10^3/uL; Eosinophils% 3.5 % (0-5); Hematocrit 44.1 % (40-54); Hemoglobin 13.7 g/dL (13.0-16.5); Lymphocyte # 3.21 X10^3/ul (0.83-4.51); Mean Corp Hgb Conc 31.1 g/dL (32-36); Mean Corpuscular Hgb 28.4 pg (27.0-32.0); Mean Corpuscular Volume 91.3 fL (80-94); Mean Platelet Vol. 10.2 fl (6.2-12.0); Monocyte% 14.4 % (0-10); NRBC Flagged by Analyzer 0 % (0-5); Neutrophil # 5.77 X10^3/uL (2.7-7.7); Neutrophil % 52.1 % (47-70); POSITIVE DIFFERENTIAL YES; Platelet Count 567 K/mm3 (150-450); RBC Distribution Width CV 18.8 % (11.6-14.6); RBC Distribution Width SD 62.1 fl (35.1-43.9); Red Blood Count 4.83 M/mm3 (4.6-6.2); White Blood Count 11.1 K/mm3 (4.4-11.0)
[2022-08-30 15:34] LABS: Differential Indicated SCAN CRITERIA MET
[2022-08-30 15:54] LABS: Differential Comment SCANNED
[2022-08-30 16:02] LABS: ALB/GLOB Ratio 0.9 RATIO (0.9-2.4); AST(SGOT) 10 U/L (15-37); Alanine Aminotransfer ALT/SGPT 16 U/L (16-61); Albumin, Serum 3.3 g/dL (3.2-5.0); Alkaline Phosphatase 72 U/L (45-117); Anion Gap 6 (5-15); BUN 11 mg/dL (7-18); BUN/Creat Ratio 11.9 RATIO (10-20); Calcium,Total 8.4 mg/dL (8.5-10.1); Chloride 108 mmol/L (98-107); Cholesterol 114 mg/dL (200); Creatinine, Serum 0.92 mg/dL (0.70-1.30); EST Glomerular Filtration Rate 88 mL/min (>60); Est Glom Filt Rate - Afr Amer 107 mL/min (>60); Globulin 3.8 g/dL (2.2-4.2); Glucose 171 mg/dL (74-106); High Density Lipoprotein 32 mg/dL; Potassium 4.4 mmol/L (3.5-5.1); Protein, Total 7.1 g/dL (6.4-8.2); Sodium Level 139 mmol/L (136-145); Triglycerides 130 mg/dL; Very Low Density Lipoprotein 26 mg/dL (5-40)
[2022-09-01 14:57] LABS: Pathologist Review Reviewed
== END | disposition home or self-care (01) ==
LOC: MFPLAB 13:56
PROVIDERS: PCP Family Medicine; Visit Provider Family Medicine
DX: E34.9 Endocrine disorder, unspecified (principal); I10 Essential (primary) hypertension
CPT/HCPCS: 36415; 80053; 80061; 84403; 85025

== ENCOUNTER → 2022-12-01 | Outpatient (CLI) | payer BC, SELFPAY ==
[2022-12-01 17:39] LABS: Absolute Lymphocyte Count 3.44 X10^3/uL (0.83-4.51); Absolute Neutrophil Count 4.5 X10^3/uL (2.0-7.7); Basophil# 0.05 X10^3/uL; Basophil% 0.5 % (0-1); Eosinophils% 3.9 % (0-5); Hematocrit 45.4 % (40-54); Hemoglobin 14.4 g/dL (13.0-16.5); Lymphocyte # 3.44 X10^3/ul (0.83-4.51); Lymphocyte % 33.9 % (19-41); Mean Corp Hgb Conc 31.7 g/dL (32-36); Mean Corpuscular Hgb 29.7 pg (27.0-32.0); Mean Corpuscular Volume 93.6 fL (80-94); Mean Platelet Vol. 10.8 fl (6.2-12.0); Monocyte# 1.78 X10^3/uL; Monocyte% 17.5 % (0-10); NRBC Flagged by Analyzer 0 % (0-5); Neutrophil # 4.45 X10^3/uL (2.7-7.7); Neutrophil % 43.9 % (47-70); POSITIVE DIFFERENTIAL YES; Platelet Count 545 K/mm3 (150-450); RBC Distribution Width CV 17.6 % (11.6-14.6); RBC Distribution Width SD 60.6 fl (35.1-43.9); Red Blood Count 4.85 M/mm3 (4.6-6.2); White Blood Count 10.2 K/mm3 (4.4-11.0)
[2022-12-01 17:56] LABS: Differential Indicated SCAN CRITERIA MET
[2022-12-01 18:19] LABS: Anion Gap 7 (5-15); BUN 17 mg/dL (7-18); BUN/Creat Ratio 17.2 RATIO (10-20); Calcium,Total 8.7 mg/dL (8.5-10.1); Chloride 108 mmol/L (98-107); Cholesterol 100 mg/dL (200); Creatinine, Serum 0.99 mg/dL (0.70-1.30); EST Glomerular Filtration Rate 82 mL/min (>60); Est Glom Filt Rate - Afr Amer 99 mL/min (>60); Glucose 114 mg/dL (74-106); High Density Lipoprotein 31 mg/dL; PSA,Total- Diagnostic 5.33 ng/mL (0.0-4.0); Potassium 4.2 mmol/L (3.5-5.1); Sodium Level 140 mmol/L (136-145); Triglycerides 113 mg/dL; Very Low Density Lipoprotein 23 mg/dL (5-40)
[2022-12-01 18:35] LABS: Differential Comment SCANNED
== END | disposition home or self-care (01) ==
LOC: MFPLAB 14:29
PROVIDERS: PCP Family Medicine; Visit Provider Family Medicine
DX: E11.9 Type 2 diabetes mellitus without complications (principal)
CPT/HCPCS: 36415; 80048; 80061; 84153; 84403; 85025

== ENCOUNTER 2023-03-07 13:57 | Outpatient (CLI) | payer BC, SELFPAY ==
[2023-03-07 15:36] LABS: Absolute Lymphocyte Count 2.72 X10^3/uL (0.83-4.51); Absolute Neutrophil Count 4.9 X10^3/uL (2.0-7.7); Basophil# 0.06 X10^3/uL; Basophil% 0.7 % (0-1); Eosinophil# 0.37 X10^3/uL; Hematocrit 43.1 % (40-54); Hemoglobin 14.1 g/dL (13.0-16.5); Lymphocyte # 2.72 X10^3/ul (0.83-4.51); Lymphocyte % 29.5 % (19-41); Mean Corp Hgb Conc 32.7 g/dL (32-36); Mean Corpuscular Hgb 31.3 pg (27.0-32.0); Mean Corpuscular Volume 95.6 fL (80-94); Mean Platelet Vol. 10.5 fl (6.2-12.0); Monocyte# 1.18 X10^3/uL; Monocyte% 12.8 % (0-10); NRBC Flagged by Analyzer 0 % (0-5); Neutrophil # 4.86 X10^3/uL (2.7-7.7); Neutrophil % 52.6 % (47-70); Platelet Count 517 K/mm3 (150-450); RBC Distribution Width CV 15.5 % (11.6-14.6); RBC Distribution Width SD 54.4 fl (35.1-43.9); Red Blood Count 4.51 M/mm3 (4.6-6.2); White Blood Count 9.2 K/mm3 (4.4-11.0)
[2023-03-07 16:01] LABS: Anion Gap 1 (5-15); BUN 15 mg/dL (7-18); BUN/Creat Ratio 14.9 RATIO (10-20); Calcium,Total 9.1 mg/dL (8.5-10.1); Chloride 110 mmol/L (98-107); Creatinine, Serum 1.01 mg/dL (0.70-1.30); EST Glomerular Filtration Rate 79 mL/min (>60); Est Glom Filt Rate - Afr Amer 96 mL/min (>60); Glucose 134 mg/dL (74-106); Potassium 4.5 mmol/L (3.5-5.1); Sodium Level 139 mmol/L (136-145)
[2023-03-07 16:10] LABS: Magnesium 2.2 mg/dL (1.6-2.6); Thyroid Stim Hormone (TSH) 1.05 uIU/mL (0.358-3.74)
[2023-03-09 12:09] LABS: PSA, Free 0.63 ng/mL; PSA, Free % 14.8 % (.)
== END 2023-03-07 23:59 | disposition home or self-care (01) ==
PROVIDERS: Internal Medicine Cardiovascular Disease; PCP Family Medicine; Referring Provider Urology; Visit Provider Urology
DX: R97.20 Elevated prostate specific antigen [PSA] (principal); E11.9 Type 2 diabetes mellitus without complications; E34.9 Endocrine disorder, unspecified; R07.9 Chest pain, unspecified
CPT/HCPCS: 36415; 80048; 83735; 84153; 84154; 84403; 84443; 85025

== ENCOUNTER → 2023-04-02 | Outpatient (CLI) | payer BC, SELFPAY ==
--- NOTE | 2023-04-02 06:32 | ECHOCS_ITS ---
Reason For Study: Chest Pain Procedure This was a 2D Doppler, Color Flow transthoracic echocardiogram. Contrast injection was performed. Exam performed in department. Left Ventricle Normal LV size. Left ventricular systolic function is normal. Stage 1 diastolic dysfunction. The left ventricular ejection fraction is 65 %. No regional wall motion abnormalities noted. Right Ventricle Normal RV size. Normal systolic function. Atria The left atrium is mildly enlarged. Normal right atrium. Mitral Valve Normal mitral valve. Tricuspid Valve Normal tricuspid valve. Mild tricuspid valve insufficiency. Pulmonary artery systolic pressure is 32 mmHg. Aortic Valve Trisinus/trileaflet aortic valve. Pulmonic Valve Normal pulmonic valve. Great Vessels Normal aortic root. The pulmonary artery is normal size. Inferior vena cava collapse with respiration. Pericardium/Pleural No pericardial effusion. Medication Diluted definity 3ml given slow IV push to enhance endocardial definition. MMode/2D Measurements & Calculations LVIDd: 4.9 cm IVSd: 1.3 cm Ao root diam: 3.3 cm LVIDs: 3.3 cm LVPWd: 1.1 cm RVDd: 3.7 cm FS: 32.7 % LAV(MOD-bp): 57.8 ml LVAd ap4: 27.3 cm2 SV(MOD-sp4): 47.5 ml LAV(MOD-bp) Indexed: 24.7 ml/m2 LVLd ap4: 8.4 cm LAV(MOD-sp2): 42.2 ml EDV(MOD-sp4): 71.5 ml LAV(MOD-sp4): 67.3 ml EDV(sp4-el): 75.8 ml LVAs ap4: 13.5 cm2 LVLs ap4: 6.2 cm ESV(MOD-sp4): 24.0 ml ESV(sp4-el): 24.7 ml EF(MOD-sp4): 66.4 % EF(sp4-el): 67.4 % SV(sp4-el): 51.1 ml LA A4 area: 23.1 cm2 LA dimension(2D): 3.9 cm RA A4 area: 15.8 cm2 TAPSE: 2.8 cm Time Measurements MV dec time: 0.24 sec Doppler Measurements & Calculations MV E max erasto: 62.4 cm/sec Lat Peak E' Erasto: 9.9 cm/sec Med Peak E' Erasto: 8.3 cm/sec MV A max erasto: 82.1 cm/sec E/E' lat: 6.3 E/E' med: 7.5 MV E/A: 0.76 Ao V2 max: 138.0 cm/sec LV V1 max: 114.6 cm/sec PA V2 max: 86.7 cm/sec Ao max P.6 mmHg LV V1 max P.3 mmHg TR max erasto: 265.2 cm/sec TR max P.1 mmHg ECHO/Echo Complete W/ Contrast Interpretation Summary Normal LV size. Left ventricular systolic function is normal. Stage 1 diastolic dysfunction. The left ventricular ejection fraction is 65 %. The left atrium is mildly enlarged. Contrast injection was performed. Ordering Physician: Marc Baeza Referring Physician: Shin Lopez Performed By: Mariah Carrasco RDCS
--- OUTSIDE RECORDS SUMMARY | 2023-04-02 06:43 | XMS RPT_ITS | CCD ---
Author Name Unknown Address [address] [place] [address] Organization [facility] Care Team Providers Care Glass Polisher Name Role Phone SHARAN DWYER G Unavailable Unavailable REYMUNDO, SHARAN G Unavailable Unavailable FREDI, JAIME S Unavailable Unavailable Problems Problem Classification Problem Date Documented Date Episodic/Chronic Cardiac dysrhythmias (1 source) Supraventricular tachycardia; Translations: [Supraventricular tachycardia] Onset: 08-20-2017 Chronic Unclassified (1 source) Supraventricular tachycardia / I47.1(ICD-10) Onset: 07-18-2017 Results Test Name Value Interpretation Reference Range Facil ity Encounters Encounter Date Encounter Type Care Provider Facility Start: 08-20-2017 End: 08-20-2017 Patient encounter SHARAN DWYER [facility] Payers Date Payer Category Payer Unknown [id number] Summary Purpose Family History No Family History Records Found Advance Directives No Advanced Directives Records Found Additional Source Comments (unrecognized sect ion and content) No Status Records Found INFORMATION SOURCE (unrecogn ized section and content) FOR RECORDS PERTAINING TO PATIENTS WHO ARE OR HAVE BEEN ENROLLED IN A CHEMICAL DEPENDENCY/SUBSTANCEABUSE PROGRAM, SOME INFORMATION MAY BE OMITTED. This clinical summary was aggregated from multiple sources. Caution should be exercised in using it in the provision of clinical care. This summary normalizes information from multiple sources, and as a consequence, information in this document may materially change the coding, format and clinical context of patient data. In addition, data may be omitted in some cases. CLINICAL DECISIONS SHOULD BE BASED ON THE PRIMARY CLINICAL RECORDS. [facility]. provides no warranty or guarantee of the accuracy or completeness of information in this document.
--- NOTE | 2023-04-02 09:48 | STRESSREP_ITS ---
Stress Test Report Exercise myocardial perfusion stress test. 63-year-old man with a history of palpitations Stress protocol: Resting EKG demonstrates normal sinus rhythm with a rate of 67 bpm resting blood pressure is 126/74 mmHg. The patient exercised according to the regular José Manuel protocol for a total duration of 6 minutes attaining a maximum heart rate of 146 bpm which was 92% of maximum predicted heart rate; the maximum workload was 7 metabolic equivalents. At rest there were no ST or T wave changes noted to suggest ischemia and at peak exercise upsloping ST changes only were noted which did not meet the criteria for ischemia. No clinical angina was noted the test was terminated due to the target heart rate being achieved/fatigue. The peak bl ood pressure was 184/76 mmHg. Rate-pressure product was 26,900. Myocardial perfusion protocol. 14.7 mCi of technetium 99m sestamibi was injected at rest. The patient exercised according to regular José Manuel protocol for total duration of 6 minutes and at peak exercise 44.5 mCi of technetium 99m sestamibi was injected stress images were obtained stress and rest images were reconstructed in comparing the short axis vertical long and horizontal long axis. Gated images were also obtained. Perfusion SPECT analysis: Review of the stress images demonstrate normal uptake of tracer noted in all areas of the myocardium. The resting images similarly demonstrate normal uptake of tracer noted in all areas of the myocardium. No areas of reversibility are noted to suggest ischemia no previous infarct was noted. Gated SPECT analysis: The gated ejection fraction is 63%. Conclusion: Normal exercise myocardial perfusion stress test at a moderate workload Preserved ejection fraction.
== END | disposition home or self-care (01) ==
LOC: CVS 06:31
PROVIDERS: PCP Family Medicine; Referring Provider Internal Medicine Cardiovascular Disease; Visit Provider Internal Medicine Cardiovascular Disease
DX: R07.9 Chest pain, unspecified (principal); Z98.890 Other specified postprocedural states
CPT/HCPCS: 78452; 93017; 93306; A9500; Q9957; A4216; C8929

== ENCOUNTER → 2023-05-09 | Outpatient (CLI) | payer BC, SELFPAY ==
[2023-05-11 12:09] LABS: PSA, Free 0.74 ng/mL; PSA, Free % 15.2 % (.)
== END | disposition home or self-care (01) ==
LOC: MTLAB 13:33
PROVIDERS: PCP Family Medicine; Referring Provider Nurse Practitioner; Visit Provider Nurse Practitioner
DX: R97.20 Elevated prostate specific antigen [PSA] (principal)
CPT/HCPCS: 36415; 84153; 84154

== ENCOUNTER → 2023-09-05 | Outpatient (CLI) | payer BC, SELFPAY ==
[2023-09-05 15:34] LABS: AST(SGOT) 12 U/L (15-37); Alanine Aminotransfer ALT/SGPT 26 U/L (16-61); Albumin, Serum 3.5 g/dL (3.2-5.0); Alkaline Phosphatase 67 U/L (45-117); Anion Gap 6 (5-15); BUN 14 mg/dL (7-18); BUN/Creat Ratio 13.5 RATIO (10-20); Chloride 111 mmol/L (98-107); Cholesterol 122 mg/dL (200); Creatinine, Serum 1.04 mg/dL (0.70-1.30); EST Glomerular Filtration Rate 77 mL/min (>60); Est Glom Filt Rate - Afr Amer 93 mL/min (>60); Globulin 3.6 g/dL (2.2-4.2); Glucose 141 mg/dL (74-106); High Density Lipoprotein 36 mg/dL; Protein, Total 7.1 g/dL (6.4-8.2); Sodium Level 142 mmol/L (136-145); Triglycerides 136 mg/dL; Very Low Density Lipoprotein 27 mg/dL (5-40)
== END | disposition home or self-care (01) ==
LOC: MFPLAB 13:55
PROVIDERS: PCP Family Medicine; Visit Provider Family Medicine
DX: E11.9 Type 2 diabetes mellitus without complications (principal)
CPT/HCPCS: 36415; 80053; 80061

== ENCOUNTER → 2023-10-03 | Outpatient (CLI) | payer BC, SELFPAY ==
--- NOTE | 2023-10-03 14:21 | NEURO ---
NCS and/or EMG Patient Report Ordering Doctor: Shin Lopez DATE OF SERVICE: 10/03/23 Kevan presents for electrodiagnostic testing of the right lower limb. He reports pain from the right knee to the foot. He has a history of diabetes. Electrodiagnostic findings: Right peroneal motor nerve demonstrates normal distal latency, amplitude and conduction velocity. No significant drop in conduction across the fibular head. Right tibial motor nerve demonstrates normal distal latency, amplitude and conduction velocity. Prolonged right tibial F wave and right peroneal F wave. Absent right sural and superficial peroneal responses. Prolonged H reflex bilaterally. Needle EMG testing was performed in the right lower limb. All muscles tested showed no evidence of denervation with normal motor unit action potentials. Electrodiagnostic impression: This is an abnormal study in the right lower limb. 1. Electrodiagnostic findings show absence of sensory responses in the right lower limb. Would consider correlation with the left lower limb to better evaluate for peripheral polyneuropathy. 2. 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 3. No electrodiagnostic evidence noted for lumbosacral radiculopathy Multi Select Codes Neurology Neurology Interp Codes: 58241-89 Musc test done w/n test comp (interp) and 91255-92 Nrv cndj tst 5-6 studies (interp)
== END | disposition home or self-care (01) ==
LOC: PSN 12:03
PROVIDERS: PCP Family Medicine; Referring Provider Family Medicine; Visit Provider Family Medicine
DX: R20.0 Anesthesia of skin (principal)
CPT/HCPCS: 95886; 95909

== ENCOUNTER → 2023-10-08 | Outpatient (CLI) | payer BC, SELFPAY ==
[2023-10-08 18:59] LABS: Ferritin 51 ng/mL (26-388); Iron 81 ug/dL (65-175)
== END | disposition home or self-care (01) ==
LOC: MTLAB 14:38
PROVIDERS: PCP Family Medicine; Referring Provider Internal Medicine Pulmonary Disease; Visit Provider Internal Medicine Pulmonary Disease
DX: R06.02 Shortness of breath (principal); G25.81 Restless legs syndrome
CPT/HCPCS: 36415; 82728; 83540

== ENCOUNTER → 2023-10-22 | Outpatient (CLI) | payer BC, SELFPAY ==
--- NOTE | 2023-10-22 13:41 | CT_ITS ---
STUDY: LOW DOSE CT LUNG CANCER SCREENING REASON FOR EXAM: Male, 63 years old. HX OF NICOTINE. Patient''s marked half a pack per day for 47 years. Shortness of breath. RADIATION DOSAGE (If Supplied By Facility): CTDIvol = ( 2.39 ) mGy, DLP = ( 81.90 ) mGycm TECHNIQUE: No contrast was administered. Low dose technique was utilized (average mAS-38 and kVp 120). 1.25 mm axial source images with a slice interval of 1.25-mm were reconstructed in lung windows. 2.5 mm axial source images with a slice interval of 2.5-mm were reconstructed in lung windows. 5.0 mm axial source images with a slice interval of 5.0-mm were reconstructed in soft tissue windows. COMPARISON: None. NODULES: No suspicious nodules seen. Emphysema: Minimal degree of emphysema. Endobronchial lesion: None Aorta: Unremarkable CORONARY ARTERIES: Coronary artery calcification is seen. Heart: Unremarkable Pulmonary artery: Unremarkable Mediastinal nodes: There is a 1.9 cm x 2.4 cm pretracheal lymph node. Other chest and abdominal findings: CT/Low Dose CT Lung Screening IMPRESSION: Lung-RADS category 4A - Screening at 3 months with LDCT or evaluation with PET/CT may be used. IMPORTANT NOTES FOR USE: ACR Lung-RADS Version 1.1 Assessment Categories Release Date: 2018 Category: Coded 0-4 bases on nodule(s) with highest degree of suspicion. Negative screen is defined as categories 1 and 2; a positive screen is defined as categories 3 and 4. Category 3 and 4A nodules that are unchanged on interval CT should be coded as category 2, and individuals returned to screening in 12 months. Category 4X: Category 3 or 4 nodules with additional imaging findings that increase the suspicion of lung cancer, such as spiculation, GGN that doubles in size in 1 year, enlarged lymph notes, etc. Category Modifiers: S (significant finding unrelated to lung cancer) Electronically Signed: Rodney Brower MD at 8:39 EDT ,
== END | disposition home or self-care (01) ==
LOC: CT 13:39
PROVIDERS: PCP Family Medicine; Referring Provider Internal Medicine Pulmonary Disease; Visit Provider Internal Medicine Pulmonary Disease
DX: Z12.2 Encounter for screening for malignant neoplasm of respiratory organs (principal); Z87.891 Personal history of nicotine dependence
CPT/HCPCS: 71271

== ENCOUNTER → 2023-10-29 | Outpatient (CLI) | payer BC, SELFPAY | END | disposition home or self-care (01) | LOC: MTLAB 13:31 | PROVIDERS: PCP Family Medicine; Referring Provider Nurse Practitioner; Visit Provider Nurse Practitioner | DX: R97.20 Elevated prostate specific antigen [PSA] (principal) | CPT/HCPCS: 36415; 84153 ==

== ENCOUNTER 2023-11-19 09:20 | Day surgery (SDC) | payer BC, SELFPAY ==
[2023-11-19] VITALS (13 sets, daily range): BP systolic 102–144; BP diastolic 61–89; PULSE 62–74; RESP 16–18; TEMP 36.1–37.1; O2SAT 94–100; BMI 38.1
--- NOTE | 2023-11-19 09:28 | PRE.ANES_ITS ---
ASA Classification* ASA Classification ASA Classification: 3 Assessment & Plan Anesthesia* Anesthesia Assessment Anesthesia Assessment: Discussed sedation and/or anesthesia options, risks, benefits, and alternatives with patient/parents/legal guardian/POA. Questions invited. The patient/parents/legal guardian/POA seems to understand and agrees to proceed with anesthesia plan. Reviewed the physical assessment, medical history, allergy history and patient home medications list prior to surgery/procedure/anesthetic and documented any changes. Performed airway and anesthesia risk assessments. Anesthesia Type Anesthesia Type: General Anesthesia Focused Assessment* Airway Assessment Mouth opens: >3 cm Mallampati Score: II Focused Labs Anesthesia Preop lab: CBC WBC 9.2 K/mm3 (4.4-11.0) 03/07/23 14:01 RBC 4.51 M/mm3 (4.6-6.2) L 03/07/23 14:01 Hgb 14.1 g/dL (13.0-16.5) 03/07/23 14:01 Hct 43.1 % (40-54) 03/07/23 14:01 Plt Count 517 K/mm3 (150-450) H 03/07/23 14:01 CHEMISTRY Potassium 4.0 mmol/L (3.5-5.1) 09/05/23 13:56 Sodium 142 mmol/L (136-145) 09/05/23 13:56 Magnesium 2.2 mg/dL (1.6-2.6) 03/07/23 14:03 BUN 14 mg/dL (7-18) 09/05/23 13:56 Creatinine 1.04 mg/dL (0.70-1.30) 09/05/23 13:56 Glucose 141 mg/dL (74-106) H 09/05/23 13:56 POC Glucose 153 mg/dL (70-110) H 03/24/21 06:34 TSH 1.05 uIU/mL (0.358-3.74) 03/07/23 14:03 COAG PT 12.3 SECONDS (11.7-14.9) 03/11/21 13:25 Pre-Assessment Diagnosis/Proposed Procedure Planned Operative Procedure(s): HYBRID LAP/OPEN VENTRAL HERNIA WITH MESH Anesthesia History 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 When Was Last Pacemaker Check QUESTION #4 FULL TEXT: You/Your Family Experience fever (hyperthermia) with Anesthesia Last Oral Intake Last Oral intake: Last Oral Intake NPO since Meds taken in AM with sips of water? 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 Female No 11/13/23 14:35 HX of Motion Sickness No 11/13/23 14:35 HX of N/V After Surgery No 11/13/23 14:35 Non-Smoker No 11/13/23 14:35 Duration of Surgery greater Yes 11/13/23 14:35 than 60 minutes Number of Risk Factors 1 11/13/23 14:35 PONV Score Low Risk 11/13/23 14:35 Height & Weight Height & Weight: Anesthesia: Height & Weight Height 5 ft 10 in 10/02/23 12:49 Respiratory Assessment Respiratory Assessment - construction job titles: Respiratory Tract Infection Hx - construction job titles Hx Respiratory Tract Infection No 11/13/23 14:35 STOP Sleep Apnea STOP Sleep Apnea - construction job titles: STOP Sleep Apnea - construction job titles Hx Hypertension Yes: CONTROLLED WITH MED 11/13/23 14:35 Hx Sleep Apnea Yes 11/13/23 14:35 CPAP No 11/13/23 14:35 BIPAP Yes: TO BRING TO HOSPITAL 11/13/23 14:35 Do you snore loudly (louder than talking or can be heard Do you often feel tired/ fatigued/ sleepy during daytime? Has anyone observed you stop breathing during sleep? STOP Results Positive 11/13/23 14:35 QUESTION #5 FULL TEXT : Do you snore loudly (louder than talking or can be heard through closed doors)? 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 Specify any problems Hx of Preganancy in last 3 N/A 11/13/23 14:35 Months Nurse Filling Out Transfusion DSCHRIBER 11/13/23 14:35 & Questions: Date: 11/13/23 11/13/23 14:35 Time: 14:37 11/13/23 14:35 Patient unable to answer at this time (ie. confused, unrespo /Reproduction History /Reproductive History - construction job titles: /Reproductive Hx- construction job titles Hx Now No 11/13/23 14:35 Gestational Age (in weeks): EDC: Hx Hx Para Hx Section SAB No 11/13/23 14:35 Active Medications Active Medications: Current Medications Generic Name Dose Route Start Last Admin Trade Name Freq PRN Reason Stop Dose Admin Cefazolin Sodium 3 gm/ Sodium 115 mls @ 150 mls/hr 11/19/23 11:00 Chloride IV 11/19/23 11:45 PREOP ONE Lactated Ringer's 1,000 mls @ 15 mls/hr 11/19/23 09:30 IV .Q48H JASON PFSH Medical History Cardiology follow-up encounter History of stress test History of echocardiogram Wears glasses Anxiety Alcohol use Prostate disease Low iron Injury of back Dietary restriction Hemorrhoids Smoker Shortness of breath on exertion Numbness and tingling of both feet History of pain when walking Enlarged lymph node BiPAP (biphasic positive airway pressure) dependence Restless leg syndrome Diabetes Vitamin D deficiency Hyperlipidemia IBS (irritable bowel syndrome) History of edema Abdominal pain History of Mcclain's palsy Suspected sleep apnea Hypertension Paroxysmal supraventricular tachycardia Thrombocytosis Leukocytosis Home Medications ?Medication ?Instructions ?Recorded ?Last Taken ?Type metoprolol tartrate 50 mg tablet 50 mg PO BID 06/16/17 06/10/21 History gabapentin 300 mg capsule 300 mg PO QHS 01/18/23 Unknown History metformin 1,000 mg tablet 1,000 mg PO BID 01/18/23 Unknown History doxazosin 2 mg tablet 2 mg PO QHS 02/21/23 Unknown History vitamin B complex (B 1 tab PO DAILY 02/21/23 Unknown History Complex-Vitamin B12 tablet) ropinirole 1 mg tablet 2 mg PO QHS 09/18/23 Unknown History zinc gluconate 50 mg tablet 50 mg PO DAILY 09/18/23 Unknown History ascorbic acid (vitamin C) 500 mg 500 mg PO DAILY 11/13/23 Unknown History tablet (C-500) ferrous gluconate 324 mg (37.5 mg 324 mg PO DAILY 11/13/23 Unknown History iron) tablet Allergy/AdvReac Type Severity Reaction Status Date / Time No Known Allergies Allergy Verified 11/13/23 14:30 Family History Mother Heart disease Cancer Father Cancer Grandfather CAD (coronary artery disease) Surgical History History of prior ablation treatment History of colonoscopy (~06/2010) History of right shoulder replacement Status post total replacement of right shoulder History of radiofrequency ablation procedure for cardiac arrhythmia (08/20/17) H/O arthroscopy of left knee History of splenectomy (~1997) Social History Smoking Status: Current every day smoker tobacco type: cigarettes alcohol intake: current alcohol intake frequency: a few times a month Alcohol type: beer, wine and other substance use type: does not use caffeine: Yes Type: carbonated beverages Number of servings: 2 and coffee Number of servings: 2 Review of Systems (Anesthesia) ROS Narrative System reviewed and no additional complaints, except as documented.
[2023-11-19] MEDS: Lactated Ringers 1,000 ML 15 ML IV (10:05)
--- NOTE | 2023-11-19 10:24 | PCM.HP.BLA ---
History and Physical Date of Admission: 11/19/23 Intake Vital Signs 02/21/2411:57 09/05/2408:42 09/18/2411:49 10/02/2411:49 Height 5 ft 10 in 5 ft 10 in 5 ft 10 in 5 ft 10 in Weight: 263 lb 266 lb BMI 37.7 38.1 BP 113/73 138/79 H Blood Pressure Location Lt brachial Rt brachial Position Sitting Sitting Respiration 16 18 Pulse 67 69 Pulse Source NIBP Monitor Temp 97.2 F L Temp Source Temporal Pulse Oximetry (%) 97 Oxygen Delivery Method room air Intake Visit Reasons: VENTRAL HERNIA Chief Complaint: ventral hernia Is patient in pain?: No Allergies No Known Allergies Allergy (Verified 10/02/23 12:50) Medications ?Medication ?Instructions ?Recorded ?Confirmed ?Type metoprolol tartrate 50 mg tablet 50 mg PO BID 06/16/17 10/02/23 History gabapentin 300 mg capsule 300 mg PO QHS 01/18/23 10/02/23 History metformin 1,000 mg tablet 1,000 mg PO BID 01/18/23 10/02/23 History doxazosin 2 mg tablet 2 mg PO DAILY 02/21/23 10/02/23 History vitamin B complex (B 1 tab PO DAILY 02/21/23 10/02/23 History Complex-Vitamin B12 tablet) ropinirole 1 mg tablet 1 mg PO QHS 09/18/23 10/02/23 History zinc gluconate 50 mg tablet 50 mg PO DAILY 09/18/23 10/02/23 History PFSH Medical History Restless leg syndrome Diabetes Vitamin D deficiency Hyperlipidemia IBS (irritable bowel syndrome) History of edema Abdominal pain History of Mcclain's palsy Suspected sleep apnea Hypertension Paroxysmal supraventricular tachycardia Thrombocytosis Leukocytosis Surgical History History of colonoscopy (~06/2010) History of right shoulder replacement Status post total replacement of right shoulder History of radiofrequency ablation procedure for cardiac arrhythmia (08/20/17) H/O arthroscopy of left knee History of splenectomy (~1997) Family History Mother Heart disease CancerFather CancerGrandfather CAD (coronary artery disease) Social History Smoking Status: Current every day smoker tobacco type: cigarettes alcohol intake: current alcohol intake frequency: a few times a month Alcohol type: beer, wine and other substance use type: does not use caffeine: Yes Type: carbonated beverages Number of servings: 2 and coffee Number of servings: 2 HPI HPI HPI: Patient is a 63-year-old male with ventral hernias. He had a midline incision for a splenic bleed and open splenectomy. He now has a hernia at his incision site. He came to see me 2 years ago and decided not to have surgery until now ROS General General: Yes weight change (loss (intentional)); No appetite, fatigue, colon cancer, breast cancer or weakness HEENT HEENT: No difficulty swallowing, eye injury, eye surgery, swollen glands or hoarseness Endo Endocrine: Yes diabetes mellitus; No thyroid disease, thyroid cancer, Hair loss, heat intolerance or cold intolerance Skin Skin: No rash or changing moles Musc Musculoskeletal: Yes arthritis; No back problems, rheumatoid arthritis, gout or joint pain Cardio Cardiovascular: Yes atrial fibrillation and high blood pressure; No murmur, pacemaker, heart disease, heart attack, heart stent, palpitations, shortness of breat with exertion or chest pain Psych Psychiatric: No depression, anxiety or hearing voices Resp Respiratory: Yes shortness of breath, Yes sleep apnea, No cough, No COPD, No asthma, No emphysema and No wheezing Gastro Gastrointestinal: No abdominal pain, No nausea or vomiting, Yes diarrhea, No constipation, No blood in stool, No acid reflux, Yes hemorrhoids, No ulcers, No gallbladder problem and No black,tarry stools [place] Hematologic: No blood thinners, No blood disorders, No bleeding, No anemia and No blood clots Neuro Neurologic: No numbness, No tingling and No weakness Exam Const General: cooperative Orientation: alert and oriented x3 HENMT Head: normal to inspection Neck Neck: normal visual inspection and full ROM Chest Chest palpation & inspection: normal inspection of the chest Resp Effort & Inspection: normal respiratory effort Auscultation: clear to auscultation bilaterally Cardio Rate: regular rate Rhythm: regular rhythm GI Inspection: non-distended Palpation: soft, hernia ventral and nontender Skin General: no rashes or lesions noted Neuro General: patient alert and patient oriented x3 Extrem General: full ROM Psych Appearance: grossly normal Mental Status: mental status grossly normal Assessment and Plan Assessment and Plan (1) Ventral hernia: Status: Acute Qualifiers: Obstruction and gangrene presence: without obstruction or gangrene Qualified Code(s): K43.9 - Ventral hernia without obstruction or gangrene Plan: The patient has a ventral hernia on CT scan that showed that there are several small hernias adjacent. I discussed laparoscopic assisted hybrid approach to close the hernia and placed a large piece of mesh. I discussed the risks including but not limited to bleeding, infection, injury to underlying organs. I also discussed the possibility of having to perform an open ventral hernia repair if there is too much scar tissue from his laparotomy. Yanick Osullivan MD Pager: [facility] [address] [place] [address], [address] [place] [address] Office: I have examined the patient and the H&P has been reviewed. There are no clinical changes since date of exam.
--- NOTE | 2023-11-19 11:00 | HERN_PTH ---
PATIENT: REJI CARRENO LOC: [facility] U#:[id number] AGE/SX: 63/M ROOM: RE11/19/[address]: Dr. Yanick Osulliavn MD : 1960 BED: DIS: 11/19/2023 SPEC #: [id number] RECD: 11/19/23 13:35 STATUS: MARTÍN MOSLEY #: [id number] JESSE: 11/19/23 11:[address]: Yanick Osullivan DEPT: SURGICAL PATHOLOGY RECD BY: Magda Flores ENTERED: 11/19/23 14:04 SP TYPE: Hernia OTHR DR: MD Dr. Shin Robison MD Tissues: HERNIA Procedures: Surgery Specimen Level II HEADER OPERATION: Laparoscopic hernia, ventral repair with mesh PRE-OP DIAGNOSIS: TISSUE SUBMITTED: Hernia contents and sac MICROSCOPIC DIAGNOSIS Hernia sac and contents: Pieces of fibroadipose and fibroconnective tissue, consistent with hernia sac with focal chronic inflammation. 11/20/2023 MICROSCOPIC DESCRIPTION Slides are reviewed. GROSS DESCRIPTION Received in fixative is one container labeled with the patient's name and designated Hernia content and sac. The specimen consists of two irregular pieces of adipose tissue measuring in aggregate 12.0 x 5.0 x 2.0cm. Sections reveal yellow adipose cut surfaces. Area of hemorrhage, necrosis, or cystic degeneration are not identified. Program Support Specialist sections are submitted in one cassette. 11/19/2023 TC:5 CPT:46708
[2023-11-19 11:10] LABS: Bedside Glucose 128 mg/dL (74-106)
[2023-11-19] MEDS: Bupiv/Epi 0.25% 30 ML Vial ×2 (11:27→12:43)
[2023-11-19] MEDS: Cefazolin 3 GM in 0.9% Normal Saline (100mL Bag) 100 ML IV (11:43)
--- NOTE | 2023-11-19 12:47 | PCM.POST.ANE ---
Anesthesia: Postop Eval I Current Vital Signs Temperature: 97.6 F Pulse Rate: 68 Blood Pressure: 144/83 Respiratory Rate: 18 Pulse Ox: 100 Oxygen Delivery Method: Simple Mask Oxygen Flow Rate (L/min): 6 Assessment Airway patent: Yes Spontaneous unlabored respirations: Yes Mental status: Awake and Calm nausea: No Vomiting: No Anesthesia Complication: No Fluid Hydration Crystalloid volume administer (ml): 500 Total IV fluid infused: 500 Progress Note Post-operative progress note: HOB UP 30 DEGREES Anesthesia document: Postop Eval 1 completed: Yes
--- NOTE | 2023-11-19 12:48 | PCM.OPRPT ---
Report of Operation Date of Procedure: 11/19/23 Pre-Operative Diagnosis: Ventral hernia x 2 Post-Operative Diagnosis: Same, each less than 3 cm Surgery/Procedure Performed:: Laparoscopic and open hybrid approach ventral hernia repair with mesh Type of Anesthesia: General/Regional Specimen's removed: Hernia sac x 2 Estimated Blood Loss (mL): 20 Description of Procedure: Patient was brought back to the operating room and general anesthesia was induced. The abdomen was prepped and draped in usual sterile fashion. An incision was marked and then created over the hernia site. The hernia was identified as well as the hernia more superior to this. Both hernias were not able to be reduced. It was only containing fat and so both fat-containing hernias were opened and then the hernia sac was resected. The fat was reduced. Some of the fat was also amputated with the hernia sac and sent for pathology. After the abdomen was entered a 12 mm port was placed and the abdomen is insufflated. Under direct visualization a left upper quadrant 5 mm port was placed. Next the left lower quadrant 5 mm port was placed. There were adhesions to the anterior abdominal wall and these were taken down with harmonic laparoscopically. Once the falciform was taken down and there was enough clear space both hernias were identified adjacent to each other. Next a [address] mesh was chosen and placed into the abdomen through the 12 mm port with the echo positioning device and then the port was removed. Next the air was allowed to desufflate and the fascia at the hernia sites were closed with interrupted #1 Nurolon sutures. Next the abdomen was reinsufflated and the camera was placed back into the abdomen. The balloon on the echo positioning device was inflated and then it was brought up to the abdominal wall and clamped. Next 4 cardinal tacks were placed using secure strap tacker. The balloon was then removed and removed from the abdomen. It was removed intact and completely. Next the secure strap tacker was used to circumferentially tack the mesh to the anterior abdominal wall. After this was completed and there was good overlap of the air was allowed to desufflate from the abdomen and the port was removed. The skin was injected with local anesthetic and closed with interrupted 3-0 Vicryl sutures and a running 4-0 Monocryl. The port sites were injected with local anesthetic and closed with interrupted 4-0 Monocryl sutures. Steri-Strips and bandages were applied. Patient was taken to PACU in stable condition. Grafts/Implants Used: [address] mesh with echo positioning device Admit VTE Documentation VTE Mechan Device Prophylaxis: SCD's
--- NOTE | 2023-11-19 12:54 | DCINST_ITS ---
Discharge Instructions Diet Discharge Diet: Light diet - advance as tolerated Activity Discharge Activity: May Not Drive (for 3-4 days and while on narcotics) and May Shower (tomorrow over the bandages) Lifting Restrictions: 15 lbs for 6 weeks Dressing / Incision Call your doctor if your incision/area has: Continuous Slow Oozing, Sudden Increased Bleeding, Increased Pain/ Swelling, Increased Redness, Foul Smelling Discharge and Swelling at the incision site Call your doctor if you observe: Fever of 101 or Higher Remove Dressing in: 2 days (Remove clear bandages in 2 days, remove Steri-Strips in 7 to 10 days, okay to shower over both) Cleanse incision/area with: Soap & Water Additional Dressing/Incision Instructions:: Alternate ibuprofen and Tylenol for pain control, oxycodone fracture pain. If taking a lot of oxycodone I would recommend MiraLAX to prevent constipation Follow Up Care Please Follow Up With: Yanick Osullivan MD When: Please call to schedule 2 week follow up appointment. [phone] Test Results: Test results from this visit will be discussed in further detail at your follow- up appointment, if applicable. Discharge Plan Admission Attending Provider: Yanick Osullivan Primary Care Provider: Shin Lopez Consulting Providers: Harish Mas Instructions Print Language: [place] Discharge Orders/Prescriptions Prescriptions: New oxycodone 5 mg Tablet 5 - 10 mg PO Q4H PRN PRN (Reason: Pain Score 4-10) 5 Days Qty: 30 0RF docusate sodium [Colace] 100 mg capsule 100 mg PO DAILY Qty: 10 0RF No Action metformin 1,000 mg tablet 1,000 mg PO BID gabapentin 300 mg capsule 300 mg PO QHS doxazosin 2 mg tablet 2 mg PO QHS Patient Comments: TAKE 1 TABLET BY MOUTH AT BEDTIME vitamin B complex [B Complex-Vitamin B12] Tablet 1 tab PO DAILY ropinirole 1 mg tablet 2 mg PO QHS zinc gluconate 50 mg tablet 50 mg PO DAILY metoprolol tartrate 50 MG tablet 50 mg PO BID ferrous gluconate 324 mg (37.5 mg iron) tablet 324 mg PO DAILY ascorbic acid (vitamin C) [C-500] 500 mg tablet 500 mg PO DAILY Other Ambulatory Orders: CBC-Complete Blood Cnt No Diff (Routine) Timeframe: 20231113 Facility: [facility] - Location: Laboratory Ordered By: Dr. Harish Mas Referrals / Follow Up: Shin Lopez MD [Primary Care Provider] - Disposition Disposition (needs filled in before D/C Order can be placed): Home, Self Care
--- NOTE | 2023-11-19 13:15 | POSTOPAN2_ITS ---
Anesthesia Postop Eval I Sum Postop Eval Completion status Anesthesia document: Postop Eval 1 completed: Yes Anesthesia Postop Eval I Summary Anesthesia Postop Eval I Summary: Anesthesia Postop Eval I: Assessment Summary Airway patent Yes 11/19/23 13:10 FOOD PRODUCTS [email or web address].[email or web address] Spontaneous unlabored Yes 11/19/23 13:10 FOOD PRODUCTS TESTER.SCHR respirations Mental status Awake,Calm 11/19/23 13:10 FOOD PRODUCTS TESTER.SCHR nausea No 11/19/23 13:10 FOOD PRODUCTS TESTER.SCHR Vomiting No 11/19/23 13:10 FOOD PRODUCTS TESTER.SCHR Anesthesia Postop Eval I: Fluid Summary Crystalloid volume administer 500 11/19/23 13:10 FOOD PRODUCTS TESTER.SCHR (ml) Colloids volume administered ( ml) Blood Product volume administered (ml) Total IV fluid infused 500 11/19/23 13:10 FOOD PRODUCTS TESTER.SCHR Anesthesia Postop Eval I: Summary Notes Anesthesia Complication No 11/19/23 13:10 FOOD PRODUCTS TESTER.SCHR Anesthesia Complication Comment: Post-operative progress note HOB UP 30 DEGREES 11/19/23 13:10 [facility]CTS [facility] Anesthesia: Postop Eval II Evaluation Mental status: Awake Pain Level: 1 nausea: No Vomiting: No
--- NOTE | 2023-11-19 13:15 | PCM.POSTANE2 ---
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 Anesthesia Postop Eval I: Fluid Summary Crystalloid volume administer 500 11/19/23 13:10 TERRA COTTA MOLD MAKER.SCHR (ml) Colloids volume administered ( ml) Blood Product volume administered (ml) Total IV fluid infused 500 11/19/23 13:10 TERRA COTTA MOLD MAKER.SCHR Anesthesia Postop Eval I: Summary Notes Anesthesia Complication No 11/19/23 13:10 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
[2023-11-19] MEDS: oxyCODONE 5 MG Tablet PO (15:02)
[2023-11-19] MEDS: Acetaminophen 325 MG Tablet 650 MG PO (15:02)
== END 2023-11-19 17:50 | disposition home or self-care (01) ==
LOC: SDC 09:20 → AC 09:22
PROVIDERS: PCP Family Medicine; Referring Provider Surgery; Visit Provider Surgery
PROC: 0WQF4ZZ Repair Abdominal Wall, Percutaneous Endoscopic Approach (ICD-10-PCS; CPT 49591; principal; 2023-11-19 10:40)
DX: K43.9 Ventral hernia without obstruction or gangrene (principal); E11.9 Type 2 diabetes mellitus without complications; Z79.84 Long term (current) use of oral hypoglycemic drugs; E78.5 Hyperlipidemia, unspecified; I10 Essential (primary) hypertension; F17.210 Nicotine dependence, cigarettes, uncomplicated; G25.81 Restless legs syndrome; Z86.69 Personal history of other diseases of the nervous system and sense organs; Z96.611 Presence of right artificial shoulder joint; Z90.81 Acquired absence of spleen; I47.10 Supraventricular tachycardia, unspecified; K66.0 Peritoneal adhesions (postprocedural) (postinfection)
CPT/HCPCS: 49591; 49329; 00752; 82962; 88302; J7120; J2405

== ENCOUNTER → 2023-11-27 | Outpatient (CLI) | payer BC, SELFPAY ==
--- NOTE | 2023-11-27 11:00 | PET_ITS ---
EXAMINATION: FDG-PET/CT ? INDICATIONS: 63-year-old male with a history of pulmonary nodularity. ? COMPARISON EXAMINATION: CT of the chest dated 10/22/2023. ? INDEX LESION SIZE SUV INTERPRETATION Second lumbar vertebra ? 2.4 max May necessitate correlation with Magnetic Resonance Imaging secondary to the quantitative degree of uptake ? TECHNIQUE: Following the intravenous administration of 14.88 mCi of F-18 deoxyglucose via the left hand, multiplanar image acquisitions of the head, neck, chest, abdomen and pelvis to the level of the midthigh, obtained at one-hour post radiopharmaceutical administration contemporaneously interpreted with the current CT of the chest, abdomen and pelvis dated 11/27/[address] of the chest dated 10/22/2023 via coregistration reveal: ? SERUM GLUCOSE LEVEL:? 121 mg/dL? HEIGHT:?? 70 inches WEIGHT:?? 260 pounds ? FINDINGS: ? HEAD/NECK:? There is no evidence of abnormal increased glucose metabolism in the pharyngeal mucosal space, parapharyngeal space, oropharynx, bilateral-lateral and anterior neck, hypopharynx and distribution of the larynx. ? The visualized portion of the cerebral cortical-subcortical structures demonstrate symmetric and preserved glucose metabolism. ? CHEST:? There is no quantitative scintigraphic evidence of abnormal increased glucose metabolism within the context of the bilateral hemithorax pulmonary parenchyma, right and left hemithorax at the pleural interface, mediastinal structures, and left-right thoracic perihilum. ? CT of the chest demonstrates the following anatomic characteristics: A subcentimeter noncalcified parenchymal density noted in the left upper anterior lung field is ametabolic. Right and left axillary soft tissue densities are nontracer avid. Mediastinal soft tissue is ametabolic. Scattered bilateral axillary soft tissue densities demonstrate no evidence of increased tracer uptake. Atherosclerotic calcification is defined in the thoracic aorta without evidence of dilatation, aneurysm formation. Coronary artery calcification is observed. ? ABDOMEN/PELVIS:? Normal physiologic distribution of the radiopharmaceutical is identified in the hepatic (3.3) parenchyma, both renal units, urinary bladder, and visualized intestinal tract. ? 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 A midline fat containing ventral hernia is demonstrated. Bilateral fat containing inguinal hernias are demonstrated.? Right and left inguinal soft tissue densities are ametabolic. Calcification is manifest within the prostate gland. Calcified phlebolith formation is noted in the right lower hemipelvis.? ? SKELETAL:? There is no evidence of quantitatively significant enhanced glucose metabolism on meticulous inspection of the appendicular and axial skeletal structures. Facilitated uptake is noted in the second lumbar vertebra to the right of midline. The calculated standard uptake value is 2.4. ? Degenerative changes defined in the thoracic and lumbar spine demonstrate no evidence of increased glucose metabolism. There are no sclerotic, mixed sclerotic-lytic, or primarily lytic changes defined in the axial skeletal structures with evidence of increased FDG uptake. ? PET/PET/CT Tumor Base -Thigh Init IMPRESSION: 1. Meticulous attention paid to the bilateral hemithorax pulmonary parenchyma demonstrates no evidence of increased radiopharmaceutical concentration. 2. Enhanced tracer uptake visualized in the second lumbar vertebra, vertebral body may be further investigated with Magnetic Resonance Imaging secondary to the quantitative degree of uptake. ? Electronic Signature Bridger Marte D.O. Accurate Quantification of SUVs for this report are calculated using the exclusive [employer]. ([place] Patent No. [id number] [phone] B2 [phone] [place] patent [id number]). Standardization and correction of the FDG SUV metric via [employer] technology allow for vendor non-specific objective quantitative examination comparison and optimization of the sensitivity and specificity of the FDG PET-CT examination. [email or web address] Electronically Signed: Bridger Marte DO at 22:25 EDT ,
== END | disposition home or self-care (01) ==
LOC: ONC 10:42
PROVIDERS: PCP Family Medicine; Referring Provider Internal Medicine Pulmonary Disease; Visit Provider Internal Medicine Pulmonary Disease
DX: R59.0 Localized enlarged lymph nodes (principal)
CPT/HCPCS: 78815; A9552

== ENCOUNTER → 2023-12-04 | Outpatient (CLI) | payer BC, SELFPAY ==
--- NOTE | 2023-12-04 13:20 | NEURO ---
NCS and/or EMG Patient Report Ordering Doctor: Shin Lopez DATE OF SERVICE: 12/04/23 Clinical Summary: 63 year old male patient with symptoms of numbness and tingling in both feet. He has a history of diabetes. Nerve Conduction Studies Summary: Nerve conduction studies were performed for the left lower extremity. The sural to radial amplitude ratio (SRAR) was 0.134. The left peroneal motor conduction velocity was reduced mildly. The peroneal and tibial F-wave onset latency was prolonged. Needle Examination Summary: Needle examination of select muscles of the left lower extremity demonstrated a higher proportion of motor unit action potentials with reduced recruitment, increased amplitude, increased duration, and polyphasia in the left tibialis anterior and peroneus longus muscles. Impression: There is electrodiagnostic evidence of a predominantly axonal, peripheral polyneuropathy. This electrodiagnostic study is suggestive of a chronic, left L5 radiculopathy. Multi Select Codes Neurology Neurology Interp Codes: 20309-68 Musc test done w/n test comp (interp) (1) and 17793-21 Nrv cndj tst 5-6 studies (interp)
== END | disposition home or self-care (01) ==
LOC: PSN 12:22
PROVIDERS: PCP Family Medicine; Referring Provider Family Medicine; Visit Provider Family Medicine
DX: G25.81 Restless legs syndrome (principal)
CPT/HCPCS: 95886; 95909

== ENCOUNTER → 2024-01-24 | Outpatient (CLI) | payer BC, SELFPAY ==
[2024-01-24 17:52] LABS: Erythrocyte Sedimentation Rate 19 mm/hr (0-20)
[2024-01-24 18:00] LABS: Vitamin B12 676 pg/mL (211-911)
[2024-01-24 18:30] LABS: CRP 4.16 mg/L (0.0-3.0)
[2024-01-30 20:07] LABS: Albumin 3.8 g/dL (2.9-4.4); Alpha-1-Globulins 0.2 g/dL (0.0-0.4); Alpha-2-Globulins 0.8 g/dL (0.4-1.0); Immunoglobulin A 247 mg/dL (61-437); Immunoglobulin G 1202 mg/dL (603-1613); Immunoglobulin M 73 mg/dL (20-172); PROEL- TOTAL PROTEIN 6.9 g/dL (6.0-8.5); Vitamin B1, Thiamine 142.1 nmol/L (66.5-200.0)
[2024-01-31 16:08] LABS: ANTINUCLEAR ANTIBODIES DIRECT Negative (Negative); Vitamin D 1,25-Dihydroxy 22.6 pg/mL (24.8-81.5)
== END | disposition home or self-care (01) ==
PROVIDERS: PCP Family Medicine
DX: G60.9 Hereditary and idiopathic neuropathy, unspecified (principal)
CPT/HCPCS: 36415; 82607; 82652; 82746; 82784; 84165; 84425; 85652; 86038; 86140; 86225; 86235; 86334

== ENCOUNTER → 2024-03-28 | Outpatient (CLI) | payer BC, SELFPAY ==
[2024-03-28 18:31] LABS: ALB/GLOB Ratio 0.9 RATIO (0.9-2.4); AST(SGOT) 18 U/L (15-37); Alanine Aminotransfer ALT/SGPT 29 U/L (16-61); Albumin, Serum 3.5 g/dL (3.2-5.0); Alkaline Phosphatase 80 U/L (45-117); Anion Gap 9 (5-15); BUN 12 mg/dL (7-18); BUN/Creat Ratio 11.9 RATIO (10-20); Calcium,Total 8.8 mg/dL (8.5-10.1); Chloride 109 mmol/L (98-107); Cholesterol 108 mg/dL (200); Creatinine, Serum 1.01 mg/dL (0.70-1.30); EST Glomerular Filtration Rate 79 mL/min (>60); Est Glom Filt Rate - Afr Amer 96 mL/min (>60); Globulin 3.9 g/dL (2.2-4.2); Glucose 107 mg/dL (74-106); High Density Lipoprotein 37 mg/dL; Potassium 4.2 mmol/L (3.5-5.1); Protein, Total 7.4 g/dL (6.4-8.2); Sodium Level 140 mmol/L (136-145); Triglycerides 173 mg/dL; Very Low Density Lipoprotein 35 mg/dL (5-40)
== END | disposition home or self-care (01) ==
LOC: MFPLAB 13:56
PROVIDERS: PCP Family Medicine; Referring Provider Family Medicine; Visit Provider Family Medicine
DX: E11.9 Type 2 diabetes mellitus without complications (principal); Z12.5 Encounter for screening for malignant neoplasm of prostate
CPT/HCPCS: 36415; 80053; 80061; 84153; G0103

== ENCOUNTER → 2024-08-05 | Outpatient (CLI) | payer BC, SELFPAY ==
[2024-08-05 16:01] LABS: Absolute Lymphocyte Count 4.01 X10^3/uL (0.83-4.51); Absolute Neutrophil Count 5.4 X10^3/uL (2.0-7.7); Basophil# 0.05 X10^3/uL; Basophil% 0.4 % (0-1); Eosinophil# 0.45 X10^3/uL; Eosinophils% 3.8 % (0-5); Hematocrit 38.8 % (40-54); Hemoglobin 12.9 g/dL (13.0-16.5); Lymphocyte # 4.01 X10^3/ul (0.83-4.51); Lymphocyte % 33.7 % (19-41); Mean Corp Hgb Conc 33.2 g/dL (32-36); Mean Corpuscular Hgb 32.6 pg (27.0-32.0); Mean Platelet Vol. 10.2 fl (6.2-12.0); Monocyte# 1.97 X10^3/uL; Monocyte% 16.5 % (0-10); NRBC Flagged by Analyzer 0 % (0-5); Neutrophil # 5.38 X10^3/uL (2.7-7.7); Neutrophil % 45.2 % (47-70); POSITIVE DIFFERENTIAL YES; Platelet Count 526 K/mm3 (150-450); RBC Distribution Width CV 13.8 % (11.6-14.6); RBC Distribution Width SD 50.3 fl (35.1-43.9); Red Blood Count 3.96 M/mm3 (4.6-6.2); White Blood Count 11.9 K/mm3 (4.4-11.0)
[2024-08-05 16:04] LABS: Differential Indicated SCAN CRITERIA MET
[2024-08-05 16:16] LABS: CRP 6.32 mg/L (0.0-3.0)
[2024-08-05 22:48] LABS: Erythrocyte Sedimentation Rate 21 mm/hr (0-20)
[2024-08-05 23:06] LABS: Differential Comment SCANNED
[2024-08-05 23:07] LABS: Platelet Estimate MOD INC (ADEQ); Red Cell Morphology NORM C+C NORMAL (NORM C&C)
== END | disposition home or self-care (01) ==
LOC: MTLAB 13:43
PROVIDERS: PCP Family Medicine; Referring Provider Student in an Organized Health Care Education/Training Program; Visit Provider Student in an Organized Health Care Education/Training Program
DX: T84.84XA Pain due to internal orthopedic prosthetic devices, implants and grafts, initial encounter (principal); Z96.611 Presence of right artificial shoulder joint
CPT/HCPCS: 36415; 85025; 85652; 86140

== ENCOUNTER → 2024-09-17 | Outpatient (CLI) | payer BC, SELFPAY ==
--- NOTE | 2024-09-17 13:34 | CT_ITS ---
PROCEDURE: EXTREMITY UPPER WITHOUT CONTRA 09/17/2024 REASON FOR EXAM: [facility] LOOSENING OF INTERNAL PROSTH. JOINT/PAIN TECHNIQUE: EXTREMITY UPPER WITHOUT CONTRA Coronal and Sagittal reconstruction series were provided. One or more dose reduction techniques were used (e.g., Automated exposure control, adjustment of the mA and/or kV according to patient size, use of iterative reconstruction technique. RADIATION DOSE SUMMARY: DLP: 994.09 mGycm COMPARISON: Right shoulder CT of 10/28/2021. FINDINGS: The examination is limited by metallic artifact from the reverse right total shoulder prosthesis. A chronic appearing comminuted fracture of the acromion is seen. This was not present on the prior examination of 2021. Moderate right acromioclavicular joint degenerative changes are noted, with marked associated joint narrowing. A reverse right total shoulder prosthesis is in place, with question of fracture of the screw through the glenoid. This should be confirmed on plain film with the superior spatial resolution and lack associated metallic artifact. No other findings are seen to suggest loosening of the right shoulder prosthesis. No acute fracture site is seen CT/Extremity Upper without Contra IMPRESSION: Question fracture of the screw through the glenoid from the reverse right total shoulder prosthesis. This should be confirmed on plain film with the superior spatial resolution and lack associated metallic artifact. Reading Location: [place] [id number]
== END | disposition home or self-care (01) ==
LOC: RAD 13:12 → CT 13:20
PROVIDERS: PCP Family Medicine; Referring Provider Physician Assistant; Visit Provider Physician Assistant
DX: S43.421A Sprain of right rotator cuff capsule, initial encounter (principal); T84.038A Mechanical loosening of other internal prosthetic joint, initial encounter; T84.84XA Pain due to internal orthopedic prosthetic devices, implants and grafts, initial encounter
CPT/HCPCS: 73200

== ENCOUNTER → 2024-12-23 | Outpatient (CLI) | payer BC, SELFPAY ==
[2024-12-23 18:32] LABS: PSA,Total- Diagnostic 5.61 ng/mL (0.00-4.00)
== END | disposition home or self-care (01) ==
LOC: MTLAB 14:34
PROVIDERS: PCP Family Medicine; Referring Provider Urology; Visit Provider Urology
DX: R97.20 Elevated prostate specific antigen [PSA] (principal)
CPT/HCPCS: 36415; 84153

== ENCOUNTER → 2024-12-31 | Outpatient (CLI) | payer BC, SELFPAY ==
--- OUTSIDE RECORDS SUMMARY | 2024-12-31 16:02 | XMS RPT_ITS | CCD ---
Author Organization [facility] Care Team Providers Care Frame Coverer Name Role Phone REYMUNDO, GABE G Unavailable Unavailable REYMUNDO, GABE G Unavailable Unavailable MARC BAEZA Unavailable Unavailable Dr. Shin Coles Primary Care Provider 1([facility])[phone] Dr. Andrea Alvarez Admit Provider 1([facility])[phone] Dr. Andrea Alvarez Referring Provider 1([facility])[phone] Andrea Alvarez Other Provider 1([facility])[phone] Dr. Yevgeniy Magdaleno Other Provider 1([facility])[phone] Alba Bahena Attending Provider 1([facility])[phone] Mariangel Wilson Attending Provider 1([facility])[phone] Dr. Mariangel Wilson Other Provider 1([facility])[phone] Shin Coles Referring Provider 1([facility])[phone] Yanick Osullivan Attending Provider 1([facility] )[phone] Dr. Yanick Osullivan Other Provider 1([facility])[phone] Dr. Shin Coles Primary Care Provider 1([facility])[phone] Dr. Shin Coles Referring Provider 1([facility])[phone] Marc Baeza Attending Provider 1([facility])[phone] Marc Baeza Referring Provider 1([facility])-[phone] Marc Baeza Other Provider Dr. Shin Coles Primary Care Provider 1([facility])[phone] Dr. Shin Coles Referring Provider 1([facility])[phone] Marc Baeza Attending Provider 1([facility])[phone] Marc Baeza Referring Provider Dr. Marc Baeza Other Provider Jessica MACARIO, Dr. Melissa Primary Care Provider Dr. Andrea Alvarez DO Attending Provider Dr. Andrea Alvarez DO Referring Provider Molly Loco Attending Provider Molly Loco Referring Provider Jessica MACARIO, Dr. Melissa Primary Care Physician Dr. Andrea Alvarez DO Attending Physician Molly Loco Attending Physician Dr. Shin Coles MD Referring Provider Felisha MACARIO, Dr. Tran Attending Physician Marc Baeza Attending Unavailable Coles, Shin Referring Unavailable Coles, Shin Primary Care Unavailable Coles, Shin Primary Care Unavailable Coles, Shin Referring Unavailable Puma Chicas Attending Unavailable Patti Ace Referring Unavailable Yonathan Flores Attending Unavailable Coles, Shin Primary Care Unavailable Coles, Shin Primary Care Unavailable Coles, Shin Attending Unavailable Coles, Shin Referring Unavailable Coles, Shin Primary Care Unavailable Andrea Alvarez Attending Unavailable Andrea Alvarez Referring Unavailable Patti Ace Attending Unavailable Patti Ace Referring Unavailable Coles, Shin Primary Care Unavailable Coles, Shin Primary Care Unavailable Reji Lou Attending Unavailable Reji Lou Referring Unavailable Coles, Shin Primary Care Unavailable Molly Alejandre Attending Unavailable Molly Alejandre Referring Unavailable Coles, Shin Primary Care Unavailable Liv Stout Attending Unavailable Liv Stout Referring Unavailable Medications Current Medications Medication Drug Class(es) Dates Sig (Normalized) Sig (Original) ascorbic acid 500 mg oral tablet (3 sources) Vitamin C Start: 11-13-2023 take 1 tablet by mouth once daily Ascorbic Acid (Vitamin C) (C-500) 500 mg tablet Active 500 mg PO DAILY November 13, 2023 12:00am Complies with drug therapy celecoxib 200 mg oral capsule (2 sources) Nonsteroidal Anti-inflammatory Drug Start: 03-25-2021 take 200 mg by mouth twice daily Celecoxib Active 200 MG PO TWICE A DAY March 25, 2021 8:27am doxazosin 2 mg oral tablet (6 sources) alpha-Adrenergic Gael Start: 02-21-2023 take 1 tablet by mouth at bedtime Doxazosin 2 mg tablet Active 2 mg PO AT BEDTIME February 21, 2023 1:00am Complies with drug therapy ferrous gluconate 324 mg oral tablet (3 sources) Start: 11-13-2023 take 1 tablet by mouth once daily Ferrous Gluconate 324 mg (37.5 mg iron) tablet Active 324 mg PO DAILY November 13, 2023 12:00am Complies with drug therapy gabapentin 300 mg oral capsule (6 sources) Anti-epileptic Agent Start: 01-18-2023 take 1 capsule by mouth at bedtime Gabapentin 300 mg capsule Active 300 mg PO AT BEDTIME January 18, 2023 1:00am Complies with drug therapy meloxicam 15 mg oral tablet (1 source) Nonsteroidal Anti-inflammatory Drug Start: 11-06-2024 take 1 tablet by mouth once daily Meloxicam 15 mg tablet Active 15 mg PO daily November 06, 2024 12:00am Complies with drug therapy metFORMIN hydrochloride 1000 mg oral tablet (6 sources) Biguanide Start: 01-18-2023 take 1 tablet by mouth twice daily Metformin 1,000 mg tablet Active 1000 mg PO TWICE A DAY January 18, 2023 1:00am Complies with drug therapy metoprolol tartrate 50 mg oral tablet (14 sources) beta-Adrenergic Gael Start: 06-16-2017 take 1 tablet by mouth twice daily Metoprolol Tartrate 50 MG tablet Active 50 mg PO TWICE A DAY June 16, 2017 12:00am Complies with drug therapy rOPINIRole 1 mg oral tablet (16 sources) Nonergot Dopamine Agonist Start: 11-06-2024 take 3 tablets by mouth at bedtime Ropinirole 1 mg tablet Active 3 mg PO AT BEDTIME November 06, 2024 1:07pm Complies with drug therapy Start: 09-18-2023 End: 11-06-2024 take 2 tablets by mouth at bedtime Ropinirole 1 mg tablet Discontinued 2 mg PO AT BEDTIME September 18, 2023 12:00am November 06, 2024 1:07pm Start: 02-21-2023 End: 09-18-2023 take 4 tablets by mouth at bedtime Ropinirole 0.25 mg tablet Discontinued 1 mg PO AT BEDTIME February 21, 2023 2:05pm September 18, 2023 1:03pm administer 1-3 hours before bedtime Start: 02-21-2023 take 1 mg by mouth at bedtime Ropinirole Active 1 MG PO AT BEDTIME February 21, 2023 2:05pm administer 1-3 hours before bedtime Start: 01-18-2023 End: 02-21-2023 take 1 tablet by mouth at bedtime Ropinirole 0.25 mg tablet Discontinued 0.25 mg PO AT BEDTIME January 18, 2023 1:00am February 21, 2023 2:06pm administer 1-3 hours before bedtime Vitamin B Complex (B Complex-Vitamin B12) tablet (6 sources) Start: 02-21-2023 Vitamin B Comp hossein (B Complex-Vitamin B12) tablet Active 1 {tbl} PO DAILY February 21, 2023 1:00am Complies with drug therapy Start: 02-21-2023 Vitamin B Comp hossein (B Complex-Vitamin B12) tablet Active 1 {tbl} PO DAILY February 21, 2023 1:00am Start: 02-21-2023 take 1 tablet by marilee th once daily Vitamin B Complex (B Complex-Vitamin B12) tablet Active 1 TABLET PO DAILY February 21, 2023 1:00am Start: 02-21-2023 take 1 tablet by marilee th once daily Vitamin B Complex (B Complex-Vitamin B12) tablet Active 1 TABLET PO DAILY February 21, 2023 12:00am zinc gluconate 50 mg oral tablet (3 sources) Start: 09-18-2023 take 1 tablet by mouth once daily Zinc Gluconate 50 mg tablet Active 50 mg PO DAILY September 18, 2023 12:00am Complies with drug therapy Completed/Discontinued Medications Medication Drug Class(es) Dates Sig (Normalized) Sig (Original) 24 hr buPROPion hydrochloride 300 mg extended release oral tablet (12 sources) Aminoketone Start: 06-07-2021 End: 02-21-2023 take 1 tablet by mouth once daily Bupropion Hcl 300 mg tablet extended release 24 hr Discontinued 300 mg PO DAILY June 07, 2021 12:00am February 21, 2023 2:05pm cholecalciferol 0.05 mg oral capsule (6 sources) Vitamin D Start: 01-18-2023 End: 02-21-2023 take 1 capsule by mouth once daily Cholecalciferol (Vitamin D3) 50 mcg (2,000 unit) capsule Discontinued 100 ug PO DAILY January 18, 2023 1:00am February 21, 2023 2:06pm docusate sodium 100 mg oral capsule (3 sources) Start: 11-19-2023 End: 12-20-2023 take 1 capsule by mouth once daily Docusate Sodium (Colace) 100 mg capsule Discontinued 100 mg PO DAILY 10 November 19, 2023 12:00am December 20, 2023 3:36pm oxyCODONE hydrochloride 5 mg oral tablet (3 sources) Opioid Agonist Start: 11-19-2023 End: 12-20-2023 take 5-10 mg by mouth every four hours as needed for pain Oxycodone 5 mg Tablet Discontinued 5 - 10 mg PO EVERY 4 HOURS NEEDED as needed for Pain Score 4-10 30 5 0 November 19, 2023 December 20, 2023 3:26pm Ventral hernia Ventral hernia without obstruction or gangrene 1 ml testosterone cypionate 200 mg/ml injection (6 sources) Androgen Start: 01-18-2023 End: 02-21-2023 inject 200 mg by intramuscular injection every other week Testosterone Cypionate 200 mg/mL oil Discontinued 200 mg IM every 2 weeks January 18, 2023 1:00am February 21, 2023 2:06pm Start: 01-18-2023 End: 02-21-2023 inject 200 mg by intramuscular injection every other week Testosterone Cypionate Discontinued 200 MG IM every 2 weeks January 18, 2023 1:00am February 21, 2023 2:06pm traMADol hydrochloride 50 mg oral tablet (14 sources) Opioid Agonist Start: 03-25-2021 End: 05-23-2021 take 1 tablet by mouth every six hours Tramadol 50 mg Tablet Discontinued 50 mg PO EVERY 6 HOURS 28 7 0 March 25, 2021 1:00am May 23, 2021 2:29pm Problems Active Problems Problem Classification Problem Date Documented Da te Episodic/Chronic Abdominal hernia (3 sources) Hernia of anterior abdominal wall; Translations: [Ventral hernia without obstruction or gangrene] 10-02-2023 Episodic Abdominal pain (20 sources) Abdominal pain; Translations: [Unspecified abdominal pain] Episodic Cardiac dysrhythmias (19 sources) Supraventricular tachycardia; Translations: [Paroxysmal supraventricular tachycardia] Onset: 8 07-03-2017 Chronic Diabetes mellitus without complication (7 sources) Diabetes mellitus; Translations: [Type 2 diabetes mellitus without complications] Onset: 5 01-18-2023 Chronic Comment on above: ON MED Disorders of lipid metabolism (7 sources) Hyperlipidemia; Translations: [Hyperlipidemia, unspecified] 01-18-2023 Chronic Essential hypertension (15 sources) Hypertensive disorder; Translations: [Essential (primary) hypertension] 03-10-2021 Chronic Comment on above: CONTROLLED WITH MED Gastrointestinal hemorrhage (10 sources) Hematochezia; Translations: [Melena] Episodic Hemorrhoids (8 sources) Hemorrhoids; Translations: [Unspecified hemorrhoids] 05-23-2021 Episodic Nonspecific chest pain (9 sources) Chest pain; Translations: [Chest pain, unspecified] 02-21-2023 Episodic Nutritional deficiencies (6 sources) Vitamin D deficiency; Translations: [Vitamin D deficiency, unspecified] 01-18-2023 Chronic Other acquired deformities (3 sources) Scoliosis deformity of spine; Translations: [Scoliosis, unspecified] 01-24-2024 Chronic Comment on above: Recently discovered to have scoliosis. Patient is uncertain as to whether or not he has had this lifelong. Note of this is made because certain patients with neurodegenerative disorders or familial neuropathies may develop scoliosis as a secondary finding. Other acquired deformities (1 source) Other secondary scoliosis, lumbar region; Translations: [Other secondary scoliosis, lumbar region] Onset: Chronic Other connective tissue disease (14 sources) History of operative procedure on shoulder; Translations: [Presence of right artificial shoulder joint] 03-24-2021 Chronic Other connective tissue disease (4 sources) Presence of right artificial shoulder joint; Translations: [Shoulder joint replacement] Chronic Other connective tissue disease (11 sources) Disease suspected; Translations: [Other symptoms and signs involving the nervous system] 03-24-2021 Episodic Other connective tissue disease (4 sources) Other symptoms and signs involving the nervous system; Translations: [Other symptoms involving nervous and musculoskeletal systems] Episodic Other connective tissue disease (3 sources) Suspected respiratory disease; Translations: [Other symptoms and signs involving the nervous system] 01-18-2023 Episodic Other ear and sense organ disorders (3 sources) Hearing loss; Translations: [Unspecified hearing loss, unspecified ear] 01-24-2024 Chronic Comment on above: Patient has bilatera l hearing loss. I difficulty determining whether this was a conductive hearing loss or neural hearing loss with a tuning fork. He may have mixed hearing loss. This is of interest because there are sometimes associations between hearing loss and certain forms of familial neuropathy. Other ear and sense organ disorders (1 source) Unspecified hearing loss, unspecified ear; Translations: [Unspecified hearing loss, unspecified ear] Onset: 5 Chronic Other ear and sense organ disorders (1 source) Unspecified hearing loss, bilateral; Translations: [Unspecified hearing loss, bilateral] Onset: 5 Chronic Other gastrointestinal disorders (6 sources) Irritable bowel syndrome; Translations: [Irritable bowel syndrome without diarrhea] 01-18-2023 Chronic Other hereditary and degenerative nervous system conditions (6 sources) Restless legs; Translations: [Restless legs syndrome] 02-21-2023 Chronic Comment on above: ON MED Other nervous system disorders (3 sources) Idiopathic peripheral neuropathy; Translations: [Hereditary and idiopathic neuropathy, unspecified] 01-24-2024 Chronic Comment on above: Patient does have id iopathic peripheral neuropathy noted in his chart. There is a possibility that this is a familial neuropathy. Certain types of neuropathy such as Pbvqabw-Aoizp-Zhavy may have associated hearing loss, peripheral neuropathy and muscle atrophy. He has 1 brother who has very significant atrophy of his lower legs. This does not appear to be a primary spinal muscular atrophy as far as I can determine. He does tend to favor motor nerve loss over sensory nerve loss on clinical exam. Besides being a diabetic he also has some alcohol intake but it is very limited I do not think the alcohol plays a role in his current neuropathy. Other nervous system disorders (1 source) Hereditary and idiopathic neuropathy, unspecified; Translations: [Hereditary and idiopathic neuropathy, unspecified] Onset: 5 Chronic Other screening for suspected conditions (not mental disorders or infectious disease) (1 source) Elevated prostate specific antigen [PSA]; Translations: [Elevated prostate specific antigen [PSA]] Onset: 5 Episodic Residual codes; unclassified (3 sources) History of hernia repair; Translations: [Other specified postprocedural states] 11-29-2023 Episodic Spondylosis; intervertebral disc disorders; other back problems (3 sources) Degeneration of lumbar intervertebral disc; Translations: [Degeneration of intervertebral disc of lumbar region] 01-24-2024 Chronic Comment on above: Noted on prior evalu ations. Sprains and strains (1 source) Sprain of right rotator cuff capsule, initial encounter; Translations: [Sprain of right rotator cuff capsule, initial encounter] Onset: 5 Episodic Unclassified (1 source) Supraventricular tachycardia / I47.1(ICD-10) Onset: 8 Unclassified (1 source) Other intervertebral disc degeneration, lumbar region with lower extremity pain only; Translations: [Other intervertebral disc degeneration, lumbar region with lower extremity pain only] Onset: 5 Past or Other Problems Problem Classification Problem Date Documented Date Episodic/Chronic Complication of device; implant or graft (1 source) Pain due to internal orthopedic prosthetic devices, implants and grafts, initial encounter; Translations: [Pain due to internal orthopedic prosthetic devices, implants and grafts, initial encounter] Onset: 08-10-2024 Episodic Residual codes; unclassified (15 sources) History of radiofrequency ablation operation for arrhythmia; Translations: [Other specified postprocedural states] Onset: 08-20-2017 08-23-2017 Episodic Comment on above: AVNRT RFA of Slow Pa alla @ [facility] Dr Gabe Dean Residual codes; unclassified (3 sources) Other specified postprocedural states; Translations: [Personal history of surgery to heart and great vessels, presenting hazards to health] Onset: 08-20-2017 02-21-2023 Episodic Spondylosis; intervertebral disc disorders; other back problems (4 sources) Lumbar radiculopathy; Translations: [Radiculopathy, lumbar region] Onset: 02-19-2024 01-24-2024 Episodic Comment on above: Patient does have EM G proven left L5 radiculopathy. Patient has scoliosis. Scoliosis may have compromise of nerve root exit zone and patient with peripheral neuropathy resulting in his radiculopathy being somewhat more pronounced than at other sites. Results Test Name Value Interpretation Reference Range Facility PSA,Total- [facility] 11-1 PSA, DIAGNOSTIC 5.61 ng/mL High 0.00-4.00 [facility] Comment on above: Result Comment: This test was performed using the [facility] [employer] tPSA method. Measured values of a patient??sample can vary depending on the testing procedure used. PSA values determined on patient samples by different testing procedures cannot be used interchangeably. If there is a change in PSA assays while monitoring therapy, sequential testing should be performed to confirm baseline values. Performed By: #### L [phone] ####[facility] [address] [place], [address] Cardiology Visit Reporton Cardiology Visit Report [facility] [address] [place] [address] OFFICE VISIT Date of Service: 11/06/24 MR#: [id number] Acct: [id number] Name: REJI CARRENO Romaine Rep #: [id number] : 1960 Provider: Dr. Marc Baeza MD Age/Sex: 64/M Location: [facility] [place] Status: Signed HPI HPI History of Present Illness Details: Pleasant 64-year-old man with a previous history of supraventricular tachyarrhythmia status post radiofrequency ablation for slow pathway in 2018. He is also had a history of right shoulder replacement and more recently he tells me that he has been started experiencing palpitations. They do not appear to be as severe as what he had before but he has had some episodes. As part of his workup he had a 7-day monitor placed and it demonstrated predominantly sinus rhythm with an average heart rate of 80 bpm, minimum of 49 bpm and max 122 bpm in sinus rhythm. Occasional atrial tachycardia episodes were noted with the longest being 122 bpm and the fastest at 125 bpm. The PVC burden rate was 3%. He is not sure whether he felt all of this. His last echocardiogram was in March 2023 demonstrating ejection fraction of 65%. He denies chest, arm, jaw, or neck discomfort. He states palpitations over the last 2 days that he describes as skipping. He denies bilateral lower extremity edema. He denies claudication. He denies shortness of breath with activity, shortness of breath at rest, orthopnea, or PND. He denies chronic cough. He denies significant, sudden weight gain. He denies lightheadedness, dizziness, near-syncope, or syncope. He denies blood in urine, blood in stool, or epistaxis. He denies fever with chills. He denies myalgia. He denies fatigue. His exercise level has remained stable. Intake Vital Signs 09/18/23 12:49 01/24/24 13:19 11/06/24 13:03 Height 5 ft 10 in 5 ft 10 in 5 ft 10 in Weight: 272 lb BMI 39.0 BP 158/88 H Blood Pressure Location Lt brachial Position Sitting Respiration 16 Pulse 70 Pulse Source Monitor Intake Visit Reasons: 1 Y FU Tower Director Required: No Accompanied by: Self Is patient in pain?: No Allergies No Known Allergies Allergy (Verified 11/06/24 13:06) Medications ???Medication ???Instructions ???Recorded ???Confirmed ???Type metoprolol tartrate 50 mg tablet 50 mg PO BID 06/16/17 11/06/24 His tory gabapentin 300 mg capsule 300 mg PO QHS 01/18/23 11/06/24 Hi story metformin 1,000 mg tablet 1,000 mg PO BID 01/18/23 11/06/24 History doxazosin 2 mg tablet 2 mg PO QHS 02/21/23 11/06/24 Hist ory vitamin B complex (B 1 tab PO DAILY 02/21/23 11/06/24 H istory Complex-Vitamin B12 tablet) zinc gluconate 50 mg tablet 50 mg PO DAILY 09/18/23 11/06/24 H istory ascorbic acid (vitamin C) 500 mg 500 mg PO DAILY 11/13/23 11/06/24 History tablet (C-500) ferrous gluconate 324 mg (37.5 mg 324 mg PO DAILY 11/13/23 11/06/24 History iron) tablet meloxicam 15 mg tablet 15 mg PO QDAY 11/06/24 11/06/24 Hi story ropinirole 1 mg tablet 3 mg PO QHS 11/06/24 11/06/24 Hist ory Ejection fraction %: 65 PFSH Medical History Cardiology follow-up encounter History of stress test History of echocardiogram Wears glasses Anxiety Alcohol use Prostate disease Low iron Injury of back Dietary restriction Hemorrhoids Smoker Shortness of breath on exertion Numbness and tingling of both feet History of pain when walking Enlarged lymph node BiPAP (biphasic positive airway pressure) dependence Restless leg syndrome Diabetes Vitamin D deficiency Hyperlipidemia IBS (irritable bowel syndrome) History of edema Abdominal pain History of Mcclain's palsy Suspected sleep apnea Hypertension Paroxysmal supraventricular tachycardia Thrombocytosis Leukocytosis Surgical History S/P repair of ventral hernia History of prior ablation treatment History of colonoscopy ( 06/2010) History of right shoulder replacement Status post total replacement of right shoulder History of radiofrequency ablation procedure for cardiac arrhythmia (08/20/17) H/O arthroscopy of left knee History of splenectomy ( 1997) Family History Mother , 98 years old Heart disease Neuropathy Breast cancer Father , 97 years old Colon cancer Grandfather CAD (coronary artery disease) Social History current occupational status: employed current occupation: [employer] pets and animals: Yes pets and animals: cat(s) Smoking Status: Current every day smoker tobacco type: cigarettes alcohol intake: current alcohol intake frequency: a (more content not included)... Normal [facility] Extremity Upper without Cont raon 09-17-2024 Extremity Upper without Contra [facility] [address] [place] [address] [id number] Extremity Upper without Contra MR#: [id number] Acct: [id number] Name: REJI CARRENO Rep #: [id number] : 1960 M 64 From: Tonio Lino PCP: Dr. Shin Coles MD Status: REG CLI Study: Extremity Upper without Contra Date of Exam: 0 09/17/24 Exam# [id number] Ordering Dr: Molly Alejandre PROCEDURE: EXTREMITY UPPER WITHOUT CONTRA 09/17/2024 REASON FOR EXAM: [facility] LOOSENING OF INTERNAL PROSTH. JOINT/PAIN TECHNIQUE: EXTREMITY UPPER WITHOUT CONTRA Coronal and Sagittal reconstruction series were provided. One or more dose reduction techniques were used (e.g., Automated exposure control, adjustment of the mA and/or kV according to patient size, use of iterative reconstruction technique. RADIATION DOSE SUMMARY: DLP: 994.09 mGycm COMPARISON: Right shoulder CT of 10/28/2021. FINDINGS: The examination is limited by metallic artifact from the reverse right total shoulder prosthesis. A chronic appearing comminuted fracture of the acromion is seen. This was not present on the prior examination of 2021. Moderate right acromioclavicular joint degenerative changes are noted, with marked associated joint narrowing. A reverse right total shoulder prosthesis is in place, with question of fracture of the screw through the glenoid. This should be confirmed on plain film with the superior spatial resolution and lack associated metallic artifact. No other findings are seen to suggest loosening of the right shoulder prosthesis. No acute fracture site is seen CT/Extremity Upper without Contra IMPRESSION: Question fracture of the screw through the glenoid from the reverse right total shoulder prosthesis. This should be confirmed on plain film with the superior spatial resolution and lack associated metallic artifact. Reading Location: [place] [address] CC: Dr. Shin Coles MD; RUDI Arechiga Produce Clerk: Signed Normal [facility] Absolute lymphocyte countOrd ered By: Andrea Alvarez on 08-05-2024 Lymphocytes Auto (Unsp spec) [#/Vol] 4.01 10*3/uL 0.83-4.51 [facility] Absolute neutrophil countOrd ered By: Andrea Alvarez on 08-05-2024 Neutrophils (Bld) [#/Vol] 5.4 10*3/uL 2.0-7.7 [facility] Automated lymphocyte count a s percentage of total leukocytesOrdered By: Andrea Alvarez on 08-05-2024 Lymphocytes/100 WBC Auto (Unsp spec) 33.7 % 19-41 [facility] Basophil percentageOrdered B y: Andrea Alvarez on 08-05-2024 Basophils/100 WBC (Bld) 0.4 % 0-1 [facility] Blood manual differential co mment interpretation (narrative result)Ordered By: Andrea Alvarez on 08-05-2024 Manual differential comment Arthur (Bld) [Interp] SCANNED [facility] CBC W/Diff, Automatedon 07-14 PLT EST MOD INC Normal ADEQ [facility] Comment on above: Performed By: #### L 101.9900, L501.6710, L100.0100 #### [facility] [address] [place], [address] RED CELL MORPH NORM C+C Normal NORM C C [facility] Comment on above: Performed By: #### L 101.9900, L501.6710, L100.0100 #### [facility] [address] [place], [address] SMEAR COMMENT SCANNED Normal [facility] Comment on above: Performed By: #### L 101.9900, L501.6710, L100.0100 #### [facility] [address] [place], [address] CRPon 08-05-2024 C-REACTIVE PROT 6.32 mg/L High 0.0-3.0 [facility] Comment on above: Performed By: #### L 101.9900, L501.6710, L100.0100 #### [facility] [address] [place], [address] Eosinophil percentageOrdered By: Andrea Alvarez on 08-05-2024 Eosinophils/100 WBC (Bld) 3.8 % 0-5 [facility] Erythrocyte Sed Rateon 08-05 SED RATE 21 mm/hr High 0-20 [facility] Comment on above: Performed By: #### L 101.9900, L501.6710, L100.0100 ####[facility] [address] [place], [address] Erythrocyte distribution wid th ratioOrdered By: Andrea Alvarez on 08-05-2024 Erythrocyte distribution width (RBC) [Ratio] 13.8 % 11.6-14.6 [facility] Erythrocyte distribution wid th standard deviationOrdered By: Andrea Alvarez on 08-05-2024 Erythrocyte distribution width (RBC) [Ratio] 50.3 fl High 35.1-43.9 [facility] Erythrocyte morphology asses smentOrdered By: Andrea Alvarez on 08-05-2024 RBC morphology finding Nom (Bld) NORM C+C NORMAL NORM C&C [facility] Erythrocyte sedimentation ra teOrdered By: Andrea Alvarez on 08-05-2024 ESR (Bld) [Velocity] 21 mm/h High 0-20 [facility] Hematocrit Auto (Bld) [Volum e fraction]Ordered By: Andrea Alvarez on 08-05-2024 Hematocrit (Bld) [Volume fraction] 38.8 % Low 40-54 [facility] Hemoglobin measurementOrdere d By: Andrea Alvarez on 08-05-2024 Hemoglobin (Bld) [Mass/Vol] 12.9 g/dL Low 13.0-16.5 [facility] Immature granulocytes/100 WB C Auto (Bld)Ordered By: Andrea Alvarez on 08-05-2024 Immature granulocytes/100 WBC (Bld) 0.400 % 0.0-0.9 [facility] Comment on above: IG% - Immature Granu locytes (promyelocytes, myelocytes and metamyelocytes) > 1% indicates that a LEFT SHIFT is Present. MCV (mean corpuscular volume ) determinationOrdered By: Andrea Alvarez on 08-05-2024 MCV (RBC) [Entitic vol] 98.0 fL High 80-94 [facility] Mean corpuscular hemoglobin (MCH) determinationOrdered By: Andrea Alvarez on 08-05-2024 MCH (RBC) [Entitic mass] 32.6 pg High 27.0-32.0 [facility] Mean corpuscular hemoglobin concentration (MCHC) determinationOrdered By: Andrea Alvarez on 08-05-2024 MCHC (RBC) [Mass/Vol] 33.2 g/dL 32-36 [facility] Mean platelet volume determi nationOrdered By: Andrea Alvarez on 08-05-2024 Platelet mean volume (Bld) [Entitic vol] 10.2 fL 6.2-12.0 [facility] Monocyte percentageOrdered B y: Andrea Alvarez on 08-05-2024 Monocytes/100 WBC (Bld) 16.5 % High 0-10 [facility] Neutrophil percentageOrdered By: Andrea Alvarez on 08-05-2024 Neutrophils/100 WBC (Bld) 45.2 % Low 47-70 [facility] Nucleated red blood cell per centageOrdered By: Andrea Alvarez on 08-05-2024 Nucleated RBC/100 WBC (Bld) [Ratio] 0 % 0-5 [facility] Platelet countOrdered By: Karis Alvarez on 08-05-2024 Platelets (Bld) [#/Vol] 526 10*3/uL High 150-450 [facility] Platelet estimateOrdered By: Andrea Alvarez on 08-05-2024 Platelets LM Ql (Bld) MOD INC ADEQ [facility] RBC Auto (Bld) [#/Vol]Ordere d By: Andrea Alvarez on 08-05-2024 RBC (Bld) [#/Vol] 3.96 10*6/uL Low 4.6-6.2 [facility] Serum or plasma C reactive p rotein measurement (mass/volume)Ordered By: Andrea Alvarez on 08-05-2024 CRP [Mass/Vol] 6.32 mg/L High 0.0-3.0 [facility] White blood cell (WBC) count Ordered By: Andrea Alvarez on 08-05-2024 WBC (Bld) [#/Vol] 11.9 10*3/uL High 4.4-11.0 [facility] Comprehensive Metabolic Prof ilon 03-28-2024 Albumin [Mass/Vol] 3.5 g/dL Normal 3.2-5.0 [facility] Comment on above: Performed By: #### L 500.4050, L502.0250, L501.9910, L500.4100 #### [facility] [address], [address] Albumin/Globulin [Mass ratio] 0.9 {ratio} Normal 0.9-2.4 [facility] Comment on above: Performed By: #### L 500.4050, L502.0250, L501.9910, L500.4100 #### [facility] [address] [place], [address] ALK P 80 U/L Normal 45-117 [facility] Comment on above: Performed By: #### L 500.4050, L502.0250, L501.9910, L500.4100 #### [facility] [address] [place], [address] ALT [Catalytic activity/Vol] 29 U/L Normal 16-61 [facility] Comment on above: Performed By: #### L 500.4050, L502.0250, L501.9910, L500.4100 #### [facility] [address] [place], [address] AST [Catalytic activity/Vol] 18 U/L Normal 15-37 [facility] Comment on above: Performed By: #### L 500.4050, L502.0250, L501.9910, L500.4100 #### [facility] [address] [place], [address] Bilirubin [Mass/Vol] 0.50 mg/dL Normal 0.20-1.00 [facility] Comment on above: Result Comment: For patients on eltrombopag therapy, use of Dimension [place] TBIL is not recommended. Performed By: #### L 500.4050, L502.0250, L501.9910, L500.4100 #### [facility] [address] [place], [address] BUN/CRE 11.9 RATIO Normal 10-20 [facility] Comment on above: Performed By: #### L 500.4050, L502.0250, L501.9910, L500.4100 #### [facility] [address] [place], [address] CA,Total 8.8 mg/dL Normal 8.5-10.1 [facility] Comment on above: Performed By: #### L 500.4050, L502.0250, L501.9910, L500.4100 #### [facility] [address] [place], [address] Chloride [Moles/Vol] 109 mmol/L High 98-107 [facility] Comment on above: Performed By: #### L 500.4050, L502.0250, L501.9910, L500.4100 #### [facility] [address] [place], [address] CO2 [Moles/Vol] 23.0 mmol/L Normal 21.0-32.0 [facility] Comment on above: Performed By: #### L 500.4050, L502.0250, L501.9910, L500.4100 #### [facility] [address] [place], [address] Creatinine [Mass/Vol] 1.01 mg/dL Normal 0.70-1.30 [facility] Comment on above: Result Comment: The validity of the calculated GFR GFRAA in patients over 70 years has not been determined. Clinical correlation is essential. Performed By: #### L 500.4050, L502.0250, L501.9910, L500.4100 #### [facility] [address] [place], [address] EST GFR - AA 96 mL/min Normal >60 [facility] Comment on above: Result Comment: Afri can Ugandan GFR Calc Performed By: #### L 500.4050, L502.0250, L501.9910, L500.4100 #### [facility] [address] [place], [address] GAP 9 Normal 5-15 [facility] Comment on above: Performed By: #### L 500.4050, L502.0250, L501.9910, L500.4100 #### [facility] [address] [place], [address] GFR/1.73 sq M.predicted among non-blacks MDRD (S/P/Bld) [Vol rate/Area] 79 mL/min/{1.73_m2} Normal >60 [facility] Comment on above: Result Comment: Non- GFR Calc Performed By: #### L 500.4050, L502.0250, L501.9910, L500.4100 #### [facility] [address] [place], [address] Globulin (S) [Mass/Vol] 3.9 g/dL Normal 2.2-4.2 [facility] Comment on above: Performed By: #### L 500.4050, L502.0250, L501.9910, L500.4100 #### [facility] [address] [place], [address] Glucose [Mass/Vol] 107 mg/dL High 74-106 [facility] Comment on above: Result Comment: Fast ing Glucose result from 100 to 125 mg/dL suggests IMPAIRED HOMEOSTASIS per A.D.A. criteria. Performed By: #### L 500.4050, L502.0250, L501.9910, L500.4100 #### [facility] [address] [place], [address] Potassium [Moles/Vol] 4.2 mmol/L Normal 3.5-5.1 [facility] Comment on above: Performed By: #### L 500.4050, L502.0250, L501.9910, L500.4100 #### [facility] [address] [place], [address] Sodium [Moles/Vol] 140 mmol/L Normal 136-145 [facility] Comment on above: Performed By: #### L 500.4050, L502.0250, L501.9910, L500.4100 #### [facility] [address] [place], [address] T PROT 7.4 g/dL Normal 6.4-8.2 [facility] Comment on above: Performed By: #### L 500.4050, L502.0250, L501.9910, L500.4100 #### [facility] [address] [place], [address] Urea nitrogen [Mass/Vol] 12 mg/dL Normal 7-18 [facility] Comment on above: Performed By: #### L 500.4050, L502.0250, L501.9910, L500.4100 #### [facility] [address] [place], [address] Lipid Profileon 03-28-2024 Cholesterol [Mass/Vol] 108 mg/dL Normal 200 [facility] Comment on above: Result Comment: <200 mg/dL Desirable 200-240 mg/dL Borderline >240 mg/dL High Risk Performed By: #### L 500.4050, L502.0250, L501.9910, L500.4100 #### [facility] [address] [place], [address] Cholesterol in HDL [Mass/Vol] 37 mg/dL Low [facility] Comment on above: Result Comment: The drugs N-Acetylcysteine and Metamizole may falsely depress this assay. Reference Range HDL <40 mg/dL Low HDL Cholesterol HDL >or= 60 mg/dL High HDL Cholesterol Performed By: #### L 500.4050, L502.0250, L501.9910, L500.4100 #### [facility] [address] [place], [address] Cholesterol in LDL [Mass/Vol] 36 mg/dL Normal 0-130 [facility] Comment on above: Performed By: #### L 500.4050, L502.0250, L501.9910, L500.4100 #### [facility] [address] [place], [address] Cholesterol in VLDL [Mass/Vol] 35 mg/dL Normal 5-40 [facility] Comment on above: Performed By: #### L 500.4050, L502.0250, L501.9910, L500.4100 #### [facility] [address] [place], [address] Triglyceride [Mass/Vol] 173 mg/dL Normal [facility] Comment on above: Result Comment: The drugs N-Acetylcysteine and Metamizole may falsely depress this assay. Serum Triglycerides Reference Interval Normal <150 mg/dL Borderline high 150 - 199 mg/dL High 200 - 499 mg/dL Very High > or = 500 mg/dL Performed By: #### L 500.4050, L502.0250, L501.9910, L500.4100 #### [facility] [address] [place], [address] Microalb:Creat Ratio,Random URon 03-28-2024 MALB:CRE Normal <30 mg/g CRE [facility] Comment on above: Result Comment: UTO Performed By: #### L 500.4050, L502.0250, L501.9910, L500.4100 #### [facility] [address] [place], [address] MICROALBUMIN,UR Normal NO RANGE EST. [facility] Comment on above: Result Comment: UTO Performed By: #### L 500.4050, L502.0250, L501.9910, L500.4100 #### [facility] [address] [place], [address] UR CREAT Normal NO RANGE EST. [facility] Comment on above: Result Comment: UTO Performed By: #### L 500.4050, L502.0250, L501.9910, L500.4100 #### [facility] [address] [place], [address] PSA,Total - Annual Screenon 03-28-2024 PSA,TOT SCREEN 4.30 ng/mL High 0.00-4.00 [facility] Comment on above: Result Comment: This test was performed using the TPSA assay method for the COFCO chemistry system. Values obtained with different assay methods cannot be used interchangably. When changing PSA assays in the course of monitoring a patient, additional sequential testing should be carried out to confirm baseline values. Performed By: #### L 500.4050, L502.0250, L501.9910, L500.4100 #### [facility] [address] [place], [address] NELIA w/ Reflex Mult Confirmon 01-31-2024 NELIA TABLE TNP Normal [facility] Comment on above: Performed By: #### L 3100.3425, L501.6710, L3300.0960, L101.9900, L3100.5450, L3300.8000, L506.0250, L503.0105 ####[facility] [address] [place], [address] ANTI-CENT B AB TNP Normal [facility] Comment on above: Performed By: #### L 3100.3425, L501.6710, L3300.0960, L101.9900, L3100.5450, L3300.8000, L506.0250, L503.0105 ####[facility] [address] [place], [address] ANTI-DNA (DS)AB TNP Normal [facility] Comment on above: Performed By: #### L 3100.3425, L501.6710, L3300.0960, L101.9900, L3100.5450, L3300.8000, L506.0250, L503.0105 ####[facility] [address] [place], [address] ANTI-SHALOM-1 TNP Normal [facility] Comment on above: Performed By: #### L 3100.3425, L501.6710, L3300.0960, L101.9900, L3100.5450, L3300.8000, L506.0250, L503.0105 ####[facility] [address] [place], [address] ANTI-SS-A TNP Normal [facility] Comment on above: Performed By: #### L 3100.3425, L501.6710, L3300.0960, L101.9900, L3100.5450, L3300.8000, L506.0250, L503.0105 ####[facility] [address] [place], [place], [phone] ANTI-SS-B TNP Normal [facility] Comment on above: Performed By: #### L 3100.3425, L501.6710, L3300.0960, L101.9900, L3100.5450, L3300.8000, L506.0250, L503.0105 ####[facility] [address] [place], [place], [phone] ANTISCLERODERM TNP Normal [facility] Comment on above: Performed By: #### L 3100.3425, L501.6710, L3300.0960, L101.9900, L3100.5450, L3300.8000, L506.0250, L503.0105 ####[facility] [address] [place], [address] SPEED BELT SANDER Ab TNP Normal [facility] Comment on above: Performed By: #### L 3100.3425, L501.6710, L3300.0960, L101.9900, L3100.5450, L3300.8000, L506.0250, L503.0105 ####[facility] [address] [place], [address] SHEARER Ab TNP Normal [facility] Comment on above: Performed By: #### L 3100.3425, L501.6710, L3300.0960, L101.9900, L3100.5450, L3300.8000, L506.0250, L503.0105 ####[facility] [address] [place], [address] Vitamin D 1,25-Dihydroxyon 1 04-02-2023 VIT D 1,25 DIHY 22.6 pg/mL Abnormal 24.8-81.5 [facility] Comment on above: Performed By: #### L 3100.3425, L501.6710, L3300.0960, L101.9900, L3100.5450, L3300.8000, L506.0250, L503.0105 ####[facility] [address] [place], [address] HAJA + Protein Elect, Serumon 01-30-2024 Albumin [Mass/Vol] 3.8 g/dL Normal 2.9-4.4 [facility] Comment on above: Order Comment: Test( s) 261919-Jem. B1, Whole Bloodwas developed and its performance characteristicsdetermined by [facility]. It has not been cleared or approvedby the Food and Drug Administration.NUNK Performed By: #### L 3100.3425, L501.6710, L3300.0960, L101.9900, L3100.5450, L3300.8000, L506.0250, L503.0105 ####[facility] [address] [place], [address] Albumin/Globulin [Mass ratio] 1.3 {ratio} Normal 0.7-1.7 [facility] Comment on above: Order Comment: Test( s) 888167-Niw. B1, Whole Bloodwas developed and its performance characteristicsdetermined by [facility]. It has not been cleared or approvedby the Food and Drug Administration.NUNK Performed By: #### L 3100.3425, L501.6710, L3300.0960, L101.9900, L3100.5450, L3300.8000, L506.0250, L503.0105 ####[facility] [address] [place], [address] XZIYH-5-GUEY 0.2 g/dL Normal 0.0-0.4 [facility] Comment on above: Order Comment: Test( s) 803755-Ihu. B1, Whole Bloodwas developed and its performance characteristicsdetermined by [facility]. It has not been cleared or approvedby the Food and Drug Administration.NUNK Performed By: #### L 3100.3425, L501.6710, L3300.0960, L101.9900, L3100.5450, L3300.8000, L506.0250, L503.0105 ####[facility] [address] [place], [address] SPYGN-2-SKYZ 0.8 g/dL Normal 0.4-1.0 [facility] Comment on above: Order Comment: Test( s) 280407-Qim. B1, Whole Bloodwas developed and its performance characteristicsdetermined by [facility]. It has not been cleared or approvedby the Food and Drug Administration.NUNK Performed By: #### L 3100.3425, L501.6710, L3300.0960, L101.9900, L3100.5450, L3300.8000, L506.0250, L503.0105 ####[facility] [address] [place], [address] BETA GLOBULIN 1.0 g/dL Normal 0.7-1.3 [facility] Comment on above: Order Comment: Test( s) 382226-Kye. B1, Whole Bloodwas developed and its performance characteristicsdetermined by [facility]. It has not been cleared or approvedby the Food and Drug Administration.NUNK Performed By: #### L 3100.3425, L501.6710, L3300.0960, L101.9900, L3100.5450, L3300.8000, L506.0250, L503.0105 ####[facility] [address] [place], [address] GAMMA GLOBULIN 1.0 g/dL Normal 0.4-1.8 [facility] Comment on above: Order Comment: Test( s) 297835-Pei. B1, Whole Bloodwas developed and its performance characteristicsdetermined by [facility]. It has not been cleared or approvedby the Food and Drug Administration.NUNK Performed By: #### L 3100.3425, L501.6710, L3300.0960, L101.9900, L3100.5450, L3300.8000, L506.0250, L503.0105 ####[facility] [address] [place], [address] Globulin (S) [Mass/Vol] 3.1 g/dL Normal 2.2-3.9 [facility] Comment on above: Order Comment: Test( s) 098497-Una. B1, Whole Bloodwas developed and its performance characteristicsdetermined by [facility]. It has not been cleared or approvedby the Food and Drug Administration.NUNK Performed By: #### L 3100.3425, L501.6710, L3300.0960, L101.9900, L3100.5450, L3300.8000, L506.0250, L503.0105 ####[facility] [address] [place], [address] HAJA RESULT,S Comment Normal . [facility] Comment on above: Order Comment: Test( s) 244169-Gpc. B1, Whole Bloodwas developed and its performance characteristicsdetermined by [facility]. It has not been cleared or approvedby the Food and Drug Administration.NUNK Result Comment: No m onoclonality detected. Performed By: #### L 3100.3425, L501.6710, L3300.0960, L101.9900, L3100.5450, L3300.8000, L506.0250, L503.0105 ####[facility] [address] [place], [address] IMMUNOGLOB A QN 247 mg/dL Normal 61-437 [facility] Comment on above: Order Comment: Test( s) 586679-Ycb. B1, Whole Bloodwas developed and its performance characteristicsdetermined by [facility]. It has not been cleared or approvedby the Food and Drug Administration.NUNK Performed By: #### L 3100.3425, L501.6710, L3300.0960, L101.9900, L3100.5450, L3300.8000, L506.0250, L503.0105 ####[facility] [address] [place], [address] IMMUNOGLOB G QN 1202 mg/dL Normal 603-1613 [facility] Comment on above: Order Comment: Test( s) 382544-Ckk. B1, Whole Bloodwas developed and its performance characteristicsdetermined by [facility]. It has not been cleared or approvedby the Food and Drug Administration.NUNK Performed By: #### L 3100.3425, L501.6710, L3300.0960, L101.9900, L3100.5450, L3300.8000, L506.0250, L503.0105 ####[facility] [address] [place], [address] IMMUNOGLOB M QN 73 mg/dL Normal 20-172 [facility] Comment on above: Order Comment: Test( s) 567792-Oin. B1, Whole Bloodwas developed and its performance characteristicsdetermined by [facility]. It has not been cleared or approvedby the Food and Drug Administration.NUNK Performed By: #### L 3100.3425, L501.6710, L3300.0960, L101.9900, L3100.5450, L3300.8000, L506.0250, L503.0105 ####[facility] [address] [place], [place], [phone] M-Hari Not Observed Normal Not Observed [facility] Comment on above: Order Comment: Test( s) 524878-Rhl. B1, Whole Bloodwas developed and its performance characteristicsdetermined by [facility]. It has not been cleared or approvedby the Food and Drug Administration.NUNK Performed By: #### L 3100.3425, L501.6710, L3300.0960, L101.9900, L3100.5450, L3300.8000, L506.0250, L503.0105 ####[facility] [address] [place], [place], [phone] NOTE: Comment Normal . [facility] Comment on above: Order Comment: Test( s) 647500-Xfe. B1, Whole Bloodwas developed and its performance characteristicsdetermined by [facility]. It has not been cleared or approvedby the Food and Drug Administration.NUNK Result Comment: Prot ein electrophoresis scan will follow via computer, mail, or [employer] delivery. Performed By: #### L 3100.3425, L501.6710, L3300.0960, L101.9900, L3100.5450, L3300.8000, L506.0250, L503.0105 ####[facility] [address] [place], [place], [phone] Protein [Mass/Vol] 6.9 g/dL Normal 6.0-8.5 [facility] Comment on above: Order Comment: Test( s) 707156-Ghj. B1, Whole Bloodwas developed and its performance characteristicsdetermined by [facility]. It has not been cleared or approvedby the Food and Drug Administration.NUNK Performed By: #### L 3100.3425, L501.6710, L3300.0960, L101.9900, L3100.5450, L3300.8000, L506.0250, L503.0105 ####[facility] [address] [place], [place], [phone] Vitamin B1, Thiamineon 01-29 VIT B1 THIAMINE 142.1 nmol/L Normal 66.5-200.0 [facility] Comment on above: Order Comment: Test( s) 390925-Atl. B1, Whole Bloodwas developed and its performance characteristicsdetermined by [facility]. It has not been cleared or approvedby the Food and Drug Administration.NUNK Result Comment: Perf ormed at: [address] [id number] Interviewing Clerk: Ricardo Hardy PhD, Phone: [phone] Performed at: [address] [id number] Interviewing Clerk: Rell Lawson MD, Phone: [phone] Performed By: #### L 3100.3425, L501.6710, L3300.0960, L101.9900, L3100.5450, L3300.8000, L506.0250, L503.0105 ####[facility] [address] [place], [place], [id number] CRPon 01-24-2024 C-REACTIVE PROT 4.16 mg/L High 0.0-3.0 [facility] Comment on above: Order Comment: UNKN Result Comment: C-Re active Protein (CRP) provides useful information for the diagnosis, therapy and monitoring of inflammatory processes and associated diseases. For the evaluation of Relative Risk for Cardiovascular Disease, a High Sensitivity CRP (HSCRP) should be ordered. Performed By: #### L 3100.3425, L501.6710, L3300.0960, L101.9900, L3100.5450, L3300.8000, L506.0250, L503.0105 ####[facility] [address] [place], [address] Erythrocyte Sed Rateon 01-23 SED RATE 19 mm/hr Normal 0-20 [facility] Comment on above: Performed By: #### L 3100.3425, L501.6710, L3300.0960, L101.9900, L3100.5450, L3300.8000, L506.0250, L503.0105 ####[facility] [facility] [id number] [place], [address] Folates, (Folic Acid)on 01-12 FOLATES 18.70 ng/mL Normal 3.1-55.4 [facility] Comment on above: Order Comment: UNKN Performed By: #### L 3100.3425, L501.6710, L3300.0960, L101.9900, L3100.5450, L3300.8000, L506.0250, L503.0105 ####[facility] [id number] [place], [place], [address] Neurology Visit Reporton Neurology Visit Report [facility] [address] [place] [address], [address] [place] [address] OFFICE VISIT Date of Service: 01/24/24 MR#: [id number] Acct: [id number] Name: WAIREJI Romaine Rep #: [id number] : 1960 Provider: Dr. Yonathan hoffmann MD Age/Sex: 64/M Location: [facility] [place] Status: Signed HPI HPI Chief Complaint: Establish Care Details: The patient is a 63-year-old right handed male who presents to [facility]. He was referred 12/20/2023 by Patti PARSONS with [facility] for polyneuropathy. This patient is seen in neurology clinic for evaluation of neuropathy. Nurse practitioner Liv is present at time of evaluation. This patient has numbness and paresthesias and weakness of both lower extremities. This is apparently been present for years and appears to be nonprogressive. Patient had x-ray of the lumbar spine which demonstrated scoliosis of the lumbar spine as well as evidence of spondylosis. There appeared to be compromise at the left L5-S1 nerve root exit zone. He has had an EMG and nerve conduction study performed which demonstrates a left L5-S1 radiculopathy as well as a bilateral polyneuropathy of lower extremities. Changes appear to be somewhat worse on the left than the right. The neuropathy appeared to be predominantly axonal in nature. Patient is a diabetic which may be a factor in his development of the neuropathy. He also has multiple family members all male which have hearing loss as he does. And there is evidence of at least 2 other brothers have neuropathy. He also indicates that he has a sister who does not have neuropathy as far as he knows and does not have hearing loss as far as he knows. It is possible that he has an axonal neuropathy with hearing loss. Some patients with this condition may also develop scoliosis because of an imbalance and lumbar musculature. No genetic testing or familial considerations have been raised prior to today. Patient does not have cerebellar signs or spinal cord signs indicative of more widespread neurodegenerative disorder. Patient appears to be in relatively good health otherwise although he has a BMI of 39. ROS HEENT shows the patient is normocephalic. He does have decreasing vision which may be related to diabetic retinopathy. He is due to see an front end software engineer. He does have bilateral decreased hearing. He is uncertain as to whether 1 ear is worse than the other. He has no difficulty swallowing or speaking. Respiratory does not cough up blood. He is being evaluated for possible lymphadenopathy in the chest and has had a PET scan. This apparently has been negative for neoplasia. Cardiac he has had cardiac ablation for A-fib. Abdomen has obesity and bleeding hemorrhoid but does not cough up blood or vomit blood. no hematuria Extremities without trauma Skin without rashes He does have a tendency to develop edema in his legs particularly if he is working in a standing position for extended periods of time. He is wearing compression socks He is a diabetic with a hemoglobin A1c of about 6.7-6.8 Exam Const Other: Blood pressure is 132/84 pulse 80 respiration 16 temperature 97.7 O2 sat 98%. General appearance is that of a obese gentleman resting comfortably in a chair. HEENT normocephalic conjunctiva not injected Respiratory breathing normally without difficulty Cardiac regular rhythm Abdomen obese Extremities without trauma Skin no areas of lesions on exposed areas. Patient states his feet are in good condition although we did not take his compression socks off which were hypoxia. Neurologic examination: Mental status: He is awake alert oriented person place day month and year. Memory testing showed he recalled 3 out of 3 objects. Language showed normal administrative receptionist expression repetition. Insight and judgment appear to be intact. CN II-XII: Pupils equal round 4 mm. Do appear to react. Extraocular muscles intact. Smooth pursuit. Normal facial sensation noted. 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 His hearing is impaired bilaterally. Exact type of hearing loss not clear at this time. He has normal phonation and swallowing and tongue movement. Motor: He is a large individual. He appears to have symmetric and normal strength in both upper extremities. His legs appear to have good strength to manual testing but the patient states that his legs feel weak to him. When he walks he seems to have some difficulty perhaps due to foot pain when he steps on his foot or perhaps partially due to weakness of the legs. He was able to heel walk and toe walk. Cerebellar function without tremor cogwheeling bradykinesia or ataxia. Reflexes were trace at best at biceps absent at knees. Toes signs were downgoing. Sensory exam (more content not included)... Normal [facility] Vitamin B12on 01-24-2024 Cobalamin (Vitamin B12) [Mass/Vol] 676 pg/mL Normal 211-911 [facility] Comment on above: Performed By: #### L 3100.3425, L501.6710, L3300.0960, L101.9900, L3100.5450, L3300.8000, L506.0250, L503.0105 ####[facility] [id number] [place], [place], [address] Orthopedic Visit Reporton Orthopedic Visit Report [facility] [address] [place] [id number] OFFICE VISIT Date of Service: 01/09/24 MR#: [id number] Acct: [id number] Name: REJI CARRENO Rep #: [id number] : 1960 Provider: Dr. Puma Chicas MD Age/Sex: 63/M Location: [facility] [place] Status: Signed Intake Vital Signs 12/20/23 14:25 Height 5 ft 10 in Weight: 270 lb 8 oz BMI 38.8 Intake Visit Reasons: lumbar spine Accompanied by: Self Is patient in pain?: No Allergies No Known Allergies Allergy (Verified 01/09/24 12:59) Medications ???Medication ???Instructions ???Recorded ???Confirmed ???Type metoprolol tartrate 50 mg tablet 50 mg PO BID 06/16/17 01/09/24 History gabapentin 300 mg capsule 300 mg PO QHS 01/18/23 01/09/24 History metformin 1,000 mg tablet 1,000 mg PO BID 01/18/23 01/09/24 History doxazosin 2 mg tablet 2 mg PO QHS 02/21/23 01/09/24 History vitamin B complex (B 1 tab PO DAILY 02/21/23 01/09/24 History Complex-Vitamin B12 tablet) ropinirole 1 mg tablet 2 mg PO QHS 09/18/23 01/09/24 History zinc gluconate 50 mg tablet 50 mg PO DAILY 09/18/23 01/09/24 History ascorbic acid (vitamin C) 500 mg 500 mg PO DAILY 11/13/23 01/09/24 History tablet (C-500) ferrous gluconate 324 mg (37.5 mg 324 mg PO DAILY 11/13/23 01/09/24 History iron) tablet [facility] Medical History Cardiology follow-up encounter History of stress test History of echocardiogram Wears glasses Anxiety Alcohol use Prostate disease Low iron Injury of back Dietary restriction Hemorrhoids Smoker Shortness of breath on exertion Numbness and tingling of both feet History of pain when walking Enlarged lymph node BiPAP (biphasic positive airway pressure) dependence Restless leg syndrome Diabetes Vitamin D deficiency Hyperlipidemia IBS (irritable bowel syndrome) History of edema Abdominal pain History of Mcclain's palsy Suspected sleep apnea Hypertension Paroxysmal supraventricular tachycardia Thrombocytosis Leukocytosis Surgical History S/P repair of ventral hernia History of prior ablation treatment History of colonoscopy ( 06/2010) History of right shoulder replacement Status post total replacement of right shoulder History of radiofrequency ablation procedure for cardiac arrhythmia (08/20/17) H/O arthroscopy of left knee History of splenectomy ( 1997) Family History Mother Heart disease Cancer Father Cancer Grandfather CAD (coronary artery disease) Social History Smoking Status: Current every day smoker tobacco type: cigarettes alcohol intake: current alcohol intake frequency: a few times a month Alcohol type: beer, wine and other substance use type: does not use caffeine: Yes Type: carbonated beverages Number of servings: 2 and coffee Number of servings: 2 HPI lumbar spine Details: This documentation accurately reflects the service provided and the decisions made by me, Dr. Puma Chicas MD 01/09/24 1257. Part of today???s visit was documented by Caity LARES , acting as scribe. REJI CARRENO is a 63 year old M here today for a MRI review. Patient states today he not having pain. Patient has brought in [place] paperwork for you to fill out for when he has days that he can hardly move that if he calls off it don't count against him. HPI from 12/20/23: REJI CARRENO is a 63 year old M here today NEW patient for his low back. He states that he has some pain ans stiffness when he wakes up in the morning for the last year. He states that he does have a family history of neuropathy and thought that is what he was starting to get. He had a NCS/EMG done at [facility] and it came back that he has L5-S1 radiculopathy. He has lower back stiffness in the morning but no consistent pain. Says that he has a soreness/ache down the back of his bilateral thighs and calfs. He does have bilateral leg weakness and numbness, tingling, and hot sensation in his bilateral feet. Says that this burning and numbness is equal in both feet. He has been having these symptoms for over a year. Says that since the onset of this feet neuropathy symptoms he feels that he has been unsteady on his feet due to the different sensation. No recent falls. He is taking gabapentin and doxazosin for the nerve pain. He denies injections and physical therapy. History of diabetes, last a1c was 6.7. Ortho Exam General General: Yes no acute distress Neurologic: Yes alert and Yes oriented x3 Spine SPINE TESTING CERVICAL THORACIC LUMBAR Musculoskeletal Strength 0=absent - 5=normal Details: Neurological exam of the lower and upper extremities (more content not included)... Normal [facility] No Panel InformationOrdered By: Damaris Mcintosh on 05-09-2023 Percent Free Prostate Specific Ag 0.74 ng/mL N/A [facility] Comment on above: Reynaldo ECLIA methodol ogy. Prostate Specific Ag, Ultra-Sensitv 4.860 ng/mL 0.000-4.00 0 [facility] Comment on above: Reynaldo ECLIA methodol ogy.According to the [place] [employer], Serum PSAshould decrease and remain at undetectable levels afterradical prostatectomy. The AUA defines biochemicalrecurrence as an initial PSA value 0.200 ng/mL or greaterfollowed by a subsequent confirmatory PSA value 0.200 ng/mLor greater. Values obtained with different assay methods orkits cannot be used interchangeably. Results cannot beinterpreted as absolute evidence of the presence or absenceof malignant disease. Serum or plasma free prostat e specific antigen/total prostate specific antigen ratioOrdered By: Damaris Mcintosh on 05-09-2023 Free PSA/Total PSA [Mass fraction] 15.2 % . [facility] Comment on above: The table below list s the probability of prostate cancer formen with non-suspicious IGNACIO results and total PSA between4 and 10 ng/mL, by patient age (Flaco et al, LULY 1998,279:1542). % Free PSA 50-64 yr 65-75 yr 0.00-10.00% 56% 55% 10.01-15.00% 24% 35% 15.01-20.00% 17% 23% 20.01-25.00% 10% 20% >25.00% 5% 9%Please note: Flaco et al did not make specific recommendations regarding the use of percent free PSA for any other population of men.Performed at: [facility] [id number] Director: Ricardo Hardy PhD, Phone: [phone] Absolute lymphocyte countOrd ered By: Reji Lou on 03-07-2023 Lymphocytes Auto (Unsp spec) [#/Vol] 2.72 10*3/uL 0.83-4.51 [facility] Automated lymphocyte count a s percentage of total leukocytesOrdered By: Reji Lou on 03-07-2023 Lymphocytes/100 WBC Auto (Unsp spec) 29.5 % 19-41 [facility] Basophil percentageOrdered B y: Reji Lou on 03-07-2023 Basophils/100 WBC (Bld) 0.7 % 0-1 [facility] Chloride [Moles/Vol] 110 mmol/L 98-107 [facility] Eosinophils/100 WBC (Bld) 4.0 % 0-5 [facility] Glucose [Mass/Vol] 134 mg/dL 74-106 [facility] Comment on above: Fasting Glucose resu lt greater than or equal to 126 mg/dL suggests DIABETES MELLITUS per A.D.A. criteria. Hemoglobin (Bld) [Mass/Vol] 14.1 g/dL 13.0-16.5 [facility] Monocytes/100 WBC (Bld) 12.8 % 0-10 [facility] Neutrophils (Bld) [#/Vol] 4.9 10*3/uL 2.0-7.7 [facility] Neutrophils/100 WBC (Bld) 52.6 % 47-70 [facility] Potassium [Moles/Vol] 4.5 mmol/L 3.5-5.1 [facility] Sodium [Moles/Vol] 139 mmol/L 136-145 [facility] Testosterone [Mass/Vol] 204.73 ng/dL [facility] Comment on above: CENTRAL 90% REFERENC E RANGES MALE AGE <50 197.44 - 669.58 ng/dL MALE AGE > or = 50 187.72 - 684.19 ng/dL FEMALE AGE <50 8.38 - 35.01 ng/dL FEMALE AGE > or = 50 <7.00 - 35.92 ng/dL Effective as of 09/07/20 WBC (Bld) [#/Vol] 9.2 10*3/uL 4.4-11.0 [facility] Determination of erythrocyte mean corpuscular volume (MCV)Ordered By: Reji Lou on 03-07-2023 MCV (RBC) [Entitic vol] 95.6 fL 80-94 [facility] Erythrocyte distribution wid th ratioOrdered By: Reji Lou on 03-07-2023 Erythrocyte distribution width (RBC) [Ratio] 15.5 % 11.6-14.6 [facility] Erythrocyte distribution wid th standard deviationOrdered By: Reji Lou on 03-07-2023 Erythrocyte distribution width (RBC) [Entitic vol] 54.4 fL 35.1-43.9 [facility] Hematocrit Auto (Bld) [Volum e fraction]Ordered By: Reji Lou on 03-07-2023 Hematocrit (Bld) [Volume fraction] 43.1 % 40-54 [facility] Immature granulocytes/100 WB C Auto (Bld)Ordered By: Reji Lou on 03-07-2023 Immature granulocytes/100 WBC (Bld) 0.400 % 0.0-0.9 [facility] Comment on above: IG% - Immature Granu locytes (promyelocytes, myelocytes and metamyelocytes) > 1% indicates that a LEFT SHIFT is Present. Laboratory - Chemistry and C hemistry - challengeOrdered By: Marc Baeza on 03-07-2023 Magnesium [Mass/Vol] 2.2 mg/dL 1.6-2.6 [facility] Laboratory - Chemistry and C hemistry - challengeOrdered By: Reji Lou on 03-07-2023 CO2 [Moles/Vol] 28.0 mmol/L 21.0-32.0 [facility] Urea nitrogen/Creatinine [Mass ratio] 14.9 mg/mg 10-20 [facility] Laboratory - Hematology and Cell countsOrdered By: Reji Lou on 03-07-2023 MCH (RBC) [Entitic mass] 31.3 pg 27.0-32.0 [facility] MCHC (RBC) [Mass/Vol] 32.7 g/dL 32-36 [facility] Nucleated RBC/100 WBC (Bld) [Ratio] 0 % 0-5 [facility] Platelets (Bld) [#/Vol] 517 10*3/uL 150-450 [facility] No Panel InformationOrdered By: Reji Lou on 03-07-2023 Estimated GFR (MDRD) Amer 96 mL/min >60 [facility] Comment on above: GFR Calc Estimated GFR (MDRD) Non-Af Amer 79 mL/min >60 [facility] Comment on above: Non- GFR Calc Percent Free Prostate Specific Ag 0.63 ng/mL N/A [facility] Comment on above: Reynaldo ECLIA methodol ogy. Prostate Specific Ag, Ultra-Sensitv 4.250 ng/mL 0.000-4.00 0 [facility] Comment on above: Reynaldo ECLIA methodol ogy.According to the [place] [employer], Serum PSAshould decrease and remain at undetectable levels afterradical prostatectomy. The AUA defines biochemicalrecurrence as an initial PSA value 0.200 ng/mL or greaterfollowed by a subsequent confirmatory PSA value 0.200 ng/mLor greater. Values obtained with different assay methods orkits cannot be used interchangeably. Results cannot beinterpreted as absolute evidence of the presence or absenceof malignant disease. Platelet mean volume Satish-Ec ker (Bld) [Entitic vol]Ordered By: Reji Lou on 03-07-2023 Platelet mean volume (Bld) [Entitic vol] 10.5 fL 6.2-12.0 [facility] RBC Auto (Bld) [#/Vol]Ordere d By: Reji Lou on 03-07-2023 RBC (Bld) [#/Vol] 4.51 10*6/uL 4.6-6.2 [facility] Serum or plasma calcium juni urement (mass/volume)Ordered By: Reji Lou on 03-07-2023 Calcium [Mass/Vol] 9.1 mg/dL 8.5-10.1 [facility] Serum or plasma creatinine m easurement (mass/volume)Ordered By: Reji Lou on 03-07-2023 Creatinine [Mass/Vol] 1.01 mg/dL 0.70-1.30 [facility] Comment on above: The validity of the calculated GFR & GFRAA in patients over 70 years has not been determined. Clinical correlation is essential. Serum or plasma free prostat e specific antigen/total prostate specific antigen ratioOrdered By: Reji Lou on 03-07-2023 Free PSA/Total PSA [Mass fraction] 14.8 % . [facility] Comment on above: The table below list s the probability of prostate cancer formen with non-suspicious IGNACIO results and total PSA between4 and 10 ng/mL, by patient age (Flaco et al, LULY 1998,279:1542). % Free PSA 50-64 yr 65-75 yr 0.00-10.00% 56% 55% 10.01-15.00% 24% 35% 15.01-20.00% 17% 23% 20.01-25.00% 10% 20% >25.00% 5% 9%Please note: Flaco et al did not make specific recommendations regarding the use of percent free PSA for any other population of men.Performed at: [facility] [id number] Director: Ricardo Hardy PhD, Phone: [phone] Serum or plasma thyroid stim ulating hormone (TSH) measurement (units/volume)Ordered By: Marc Baeza on 03-07-2023 TSH Qn 1.05 uIU/mL 0.358-3.74 [facility] Serum or plasma urea nitroge n measurement (mass/volume)Ordered By: Reji Lou on 03-07-2023 Urea nitrogen [Mass/Vol] 15 mg/dL 7-18 [facility] Thin prep Papanicolaou smear with manual screeningOrdered By: Reji Lou on 03-07-2023 Thin prep Papanicolaou smear with manual screening 1 5-15 [facility] Absolute lymphocyte countOrd ered By: Shin Coles on 12-01-2022 Lymphocytes Auto (Unsp spec) [#/Vol] 3.44 10*3/uL 0.83-4.51 [facility] Basophil percentageOrdered B y: Shin Coles on 12-01-2022 Basophils/100 WBC (Bld) 0.5 % 0-1 [facility] Chloride [Moles/Vol] 108 mmol/L 98-107 [facility] Cholesterol [Mass/Vol] 100 mg/dL <200 [facility] Comment on above: <200 mg/dL Desirable 200-240 mg/dL Borderline >240 mg/dL High Risk Eosinophils/100 WBC (Bld) 3.9 % 0-5 [facility] Glucose [Mass/Vol] 114 mg/dL 74-106 [facility] Comment on above: Fasting Glucose resu lt from 100 to 125 mg/dL suggests IMPAIRED HOMEOSTASIS per A.D.A. criteria. Neutrophils (Bld) [#/Vol] 4.5 10*3/uL 2.0-7.7 [facility] Neutrophils/100 WBC (Bld) 43.9 % 47-70 [facility] Potassium [Moles/Vol] 4.2 mmol/L 3.5-5.1 [facility] Sodium [Moles/Vol] 140 mmol/L 136-145 [facility] Testosterone [Mass/Vol] 400.05 ng/dL [facility] Comment on above: CENTRAL 90% REFERENC E RANGES MALE AGE <50 197.44 - 669.58 ng/dL MALE AGE > or = 50 187.72 - 684.19 ng/dL FEMALE AGE <50 8.38 - 35.01 ng/dL FEMALE AGE > or = 50 <7.00 - 35.92 ng/dL Effective as of 09/07/20 Triglyceride [Mass/Vol] 113 mg/dL <199 [facility] Comment on above: The drugs N-Acetylcy steine and Metamizole may falsely depress this assay.Serum Triglycerides Reference Interval Normal <150 mg/dL Borderline high 150 - 199 mg/dL High 200 - 499 mg/dL Very High > or = 500 mg/dL WBC (Bld) [#/Vol] 10.2 10*3/uL 4.4-11.0 [facility] Blood erythrocytes count (nu mber/volume)Ordered By: Shin Coles on 12-01-2022 RBC (Bld) [#/Vol] 4.85 10*6/uL 4.6-6.2 [facility] Blood hemoglobin measurement (mass/volume)Ordered By: Shin Coles on 12-01-2022 Hemoglobin (Bld) [Mass/Vol] 14.4 g/dL 13.0-16.5 [facility] Blood lymphocytes/100 leukoc ytesOrdered By: Shin Coles on 12-01-2022 Lymphocytes/100 WBC (Bld) 33.9 % 19-41 [facility] Blood manual differential co mment interpretation (narrative result)Ordered By: Shin Coles on 12-01-2022 Manual differential comment Arthur (Bld) [Interp] SCANNED [facility] Blood monocytes/100 leukocyt esOrdered By: Shin Coles on 12-01-2022 Monocytes/100 WBC (Bld) 17.5 % 0-10 [facility] Blood platelet mean volumeOr dered By: Shin Coles on 12-01-2022 Platelet mean volume (Bld) [Entitic vol] 10.8 fL 6.2-12.0 [facility] Determination of erythrocyte mean corpuscular volume (MCV)Ordered By: Shin Coles on 12-01-2022 MCV (RBC) [Entitic vol] 93.6 fL 80-94 [facility] Hematocrit Auto (Bld) [Volum e fraction]Ordered By: Shin Coles on 12-01-2022 Hematocrit (Bld) [Volume fraction] 45.4 % 40-54 [facility] Laboratory - Chemistry and C hemistry - challengeOrdered By: Shin Coles on 12-01-2022 CO2 [Moles/Vol] 25.0 mmol/L 21.0-32.0 [facility] Urea nitrogen/Creatinine [Mass ratio] 17.2 mg/mg 12-01 [facility] Laboratory - Hematology and Cell countsOrdered By: Shin Coles on 12-01-2022 Erythrocyte distribution width (RBC) [Entitic vol] 60.6 fL 35.1-43.9 [facility] Erythrocyte distribution width (RBC) [Ratio] 17.6 % 11.6-14.6 [facility] Immature granulocytes/100 WBC (Bld) 0.300 % 0.0-0.9 [facility] Comment on above: IG% - Immature Granu locytes (promyelocytes, myelocytes and metamyelocytes) > 1% indicates that a LEFT SHIFT is Present. MCH (RBC) [Entitic mass] 29.7 pg 27.0-32.0 [facility] Nucleated RBC/100 WBC (Bld) [Ratio] 0 % 0-5 [facility] MCHC Auto (RBC) [Mass/Vol]Or dered By: Shin Coles on 12-01-2022 MCHC (RBC) [Mass/Vol] 31.7 g/dL 32-36 [facility] No Panel InformationOrdered By: Shin Coles on 12-01-2022 Estimated GFR (MDRD) Amer 99 mL/min >60 [facility] Comment on above: GFR Calc Estimated GFR (MDRD) Non-Af Amer 82 mL/min >60 [facility] Comment on above: Non- GFR Calc Prostate Specific Antigen Total 5.33 ng/mL 0.0-4.0 [facility] Comment on above: This test was perfor med using the TPSA assay method for the[facility] system. Values obtained with differentassay methods cannot be used interchangably.When changing PSA assays in the course of monitoring apatient, additional sequential testing should be carriedout to confirm baseline values. Platelets bldOrdered By: Debra Coles on 12-01-2022 Platelets (Bld) [#/Vol] 545 10*3/uL 150-450 [facility] Serum or plasma calcium juni urement (mass/volume)Ordered By: Shin Coles on 12-01-2022 Calcium [Mass/Vol] 8.7 mg/dL 8.5-10.1 [facility] Serum or plasma cholesterol in HDL measurement (mass/volume)Ordered By: Shin Coles on 12-01-2022 Cholesterol in HDL [Mass/Vol] 31 mg/dL >40 [facility] Comment on above: The drugs N-Acetylcy steine and Metamizole may falsely depress this assay. Reference Range HDL <40 mg/dL Low HDL Cholesterol HDL >or= 60 mg/dL High HDL Cholesterol Serum or plasma cholesterol in VLDL measurement (mass/volume)Ordered By: Shin Coles on 12-01-2022 Cholesterol in VLDL [Mass/Vol] 23 mg/dL 5-40 [facility] Serum or plasma creatinine m easurement (mass/volume)Ordered By: Shin Coles on 12-01-2022 Creatinine [Mass/Vol] 0.99 mg/dL 0.70-1.30 [facility] Comment on above: The validity of the calculated GFR & GFRAA in patients over 70 years has not been determined. Clinical correlation is essential. Serum or plasma low density lipoprotein (LDL) cholesterol measurement (mass/volume)Ordered By: Shin Coles on 12-01-2022 Cholesterol in LDL [Mass/Vol] 46 mg/dL 0-130 [facility] Serum or plasma urea nitroge n measurement (mass/volume)Ordered By: Shin Coles on 12-01-2022 Urea nitrogen [Mass/Vol] 17 mg/dL 7-18 [facility] Thin prep Papanicolaou smear with manual screeningOrdered By: Shin Coles on 12-01-2022 Thin prep Papanicolaou smear with manual screening 7 5-15 [facility] Absolute lymphocyte countOrd ered By: Shin Coles on 08-30-2022 Lymphocytes Auto (Unsp spec) [#/Vol] 3.21 10*3/uL 0.83-4.51 [facility] Basophil percentageOrdered B y: Shin Coles on 08-30-2022 Basophils/100 WBC (Bld) 0.6 % 0-1 [facility] Bilirubin [Mass/Vol] 0.40 mg/dL 0.20-1.00 [facility] Comment on above: For patients on eltr ombopag therapy, use of Dimension [place] TBIL is not recommended. Chloride [Moles/Vol] 108 mmol/L 98-107 [facility] Cholesterol [Mass/Vol] 114 mg/dL <200 [facility] Comment on above: <200 mg/dL Desirable 200-240 mg/dL Borderline >240 mg/dL High Risk Eosinophils/100 WBC (Bld) 3.5 % 0-5 [facility] Glucose [Mass/Vol] 171 mg/dL 74-106 [facility] Comment on above: Fasting Glucose resu lt greater than or equal to 126 mg/dL suggests DIABETES MELLITUS per A.D.A. criteria. Neutrophils (Bld) [#/Vol] 5.8 10*3/uL 2.0-7.7 [facility] Neutrophils/100 WBC (Bld) 52.1 % 47-70 [facility] Potassium [Moles/Vol] 4.4 mmol/L 3.5-5.1 [facility] Protein [Mass/Vol] 7.1 g/dL 6.4-8.2 [facility] Sodium [Moles/Vol] 139 mmol/L 136-145 [facility] Testosterone [Mass/Vol] 680.46 ng/dL [facility] Comment on above: CENTRAL 90% REFERENC E RANGES MALE AGE <50 197.44 - 669.58 ng/dL MALE AGE > or = 50 187.72 - 684.19 ng/dL FEMALE AGE <50 8.38 - 35.01 ng/dL FEMALE AGE > or = 50 <7.00 - 35.92 ng/dL Effective as of 09/07/20 Triglyceride [Mass/Vol] 130 mg/dL <199 [facility] Comment on above: The drugs N-Acetylcy steine and Metamizole may falsely depress this assay.Serum Triglycerides Reference Interval Normal <150 mg/dL Borderline high 150 - 199 mg/dL High 200 - 499 mg/dL Very High > or = 500 mg/dL WBC (Bld) [#/Vol] 11.1 10*3/uL 4.4-11.0 [facility] Blood erythrocytes count (nu mber/volume)Ordered By: Shin Coles on 08-30-2022 RBC (Bld) [#/Vol] 4.83 10*6/uL 4.6-6.2 [facility] Blood hemoglobin measurement (mass/volume)Ordered By: Shin Coles on 08-30-2022 Hemoglobin (Bld) [Mass/Vol] 13.7 g/dL 13.0-16.5 [facility] Blood lymphocytes/100 leukoc ytesOrdered By: Shin Coles on 08-30-2022 Lymphocytes/100 WBC (Bld) 29.0 % 19-41 [facility] Blood manual differential co mment interpretation (narrative result)Ordered By: Shin Coles on 08-30-2022 Manual differential comment Arthur (Bld) [Interp] SCANNED [facility] Comment on above: MONOCYTOSIS NOTED Blood monocytes/100 leukocyt esOrdered By: Shin Coles on 08-30-2022 Monocytes/100 WBC (Bld) 14.4 % 0-10 [facility] Blood platelet mean volumeOr dered By: Shin Coles on 08-30-2022 Platelet mean volume (Bld) [Entitic vol] 10.2 fL 6.2-12.0 [facility] Determination of erythrocyte mean corpuscular volume (MCV)Ordered By: Shin Coles on 08-30-2022 MCV (RBC) [Entitic vol] 91.3 fL 80-94 [facility] Hematocrit Auto (Bld) [Volum e fraction]Ordered By: Shin Coles on 08-30-2022 Hematocrit (Bld) [Volume fraction] 44.1 % 40-54 [facility] Laboratory - Chemistry and C hemistry - challengeOrdered By: Shin Coles on 08-30-2022 ALP [Catalytic activity/Vol] 72 U/L 45-117 [facility] ALT [Catalytic activity/Vol] 16 U/L 16-61 [facility] CO2 [Moles/Vol] 25.0 mmol/L 21.0-32.0 [facility] Globulin (S) [Mass/Vol] 3.8 g/dL 2.2-4.2 [facility] Urea nitrogen/Creatinine [Mass ratio] 11.9 mg/mg 10-20 [facility] Laboratory - Hematology and Cell countsOrdered By: Shin Coles on 08-30-2022 Erythrocyte distribution width (RBC) [Entitic vol] 62.1 fL 35.1-43.9 [facility] Erythrocyte distribution width (RBC) [Ratio] 18.8 % 11.6-14.6 [facility] Immature granulocytes/100 WBC (Bld) 0.400 % 0.0-0.9 [facility] Comment on above: IG% - Immature Granu locytes (promyelocytes, myelocytes and metamyelocytes) > 1% indicates that a LEFT SHIFT is Present. MCH (RBC) [Entitic mass] 28.4 pg 27.0-32.0 [facility] Nucleated RBC/100 WBC (Bld) [Ratio] 0 % 0-5 [facility] MCHC Auto (RBC) [Mass/Vol]Or dered By: Shin Coles on 08-30-2022 MCHC (RBC) [Mass/Vol] 31.1 g/dL 32-36 [facility] No Panel InformationOrdered By: Shin Coles on 08-30-2022 Estimated GFR (MDRD) Amer 107 mL/min >60 [facility] Comment on above: GFR Calc Estimated GFR (MDRD) Non-Af Amer 88 mL/min >60 [facility] Comment on above: Non- GFR Calc Platelets bldOrdered By: Debra Coles on 08-30-2022 Platelets (Bld) [#/Vol] 567 10*3/uL 150-450 [facility] Review by pathologistOrdered By: Shin Coles on 08-30-2022 Pathologist review Arthur (Unsp spec) [Interp] Reviewed [facility] Comment on above: Previous reported re sult: Zamzam torres Edited by: RGOOD on 09/01/22:9038Leukocytosis.Thrombocytosis.Clinical correlation necessary.Joo Paul M.D. 09/01/22 AMENDED REPORT 09/01/22 [id number] PATH REV previously reported as: May foll Serum or plasma albumin juni urement (mass/volume)Ordered By: Shin Coles on 08-30-2022 Albumin [Mass/Vol] 3.3 g/dL 3.2-5.0 [facility] Serum or plasma albumin/glob ulin mass ratioOrdered By: Shin Coles on 08-30-2022 Albumin/Globulin [Mass ratio] 0.9 {ratio} 0.9-2.4 [facility] Serum or plasma calcium juni urement (mass/volume)Ordered By: Shin Coles on 08-30-2022 Calcium [Mass/Vol] 8.4 mg/dL 8.5-10.1 [facility] Serum or plasma cholesterol in HDL measurement (mass/volume)Ordered By: Shin Coles on 08-30-2022 Cholesterol in HDL [Mass/Vol] 32 mg/dL >40 [facility] Comment on above: The drugs N-Acetylcy steine and Metamizole may falsely depress this assay. Reference Range HDL <40 mg/dL Low HDL Cholesterol HDL >or= 60 mg/dL High HDL Cholesterol Serum or plasma cholesterol in VLDL measurement (mass/volume)Ordered By: Shin Coles on 08-30-2022 Cholesterol in VLDL [Mass/Vol] 26 mg/dL 5-40 [facility] Serum or plasma creatinine m easurement (mass/volume)Ordered By: Shin Coles on 08-30-2022 Creatinine [Mass/Vol] 0.92 mg/dL 0.70-1.30 [facility] Comment on above: The validity of the calculated GFR & GFRAA in patients over 70 years has not been determined. Clinical correlation is essential. Serum or plasma low density lipoprotein (LDL) cholesterol measurement (mass/volume)Ordered By: Shin Coles on 08-30-2022 Cholesterol in LDL [Mass/Vol] 56 mg/dL 0-130 [facility] Serum or plasma urea nitroge n measurement (mass/volume)Ordered By: Shin Coles on 08-30-2022 Urea nitrogen [Mass/Vol] 11 mg/dL 7-18 [facility] Thin prep Papanicolaou smear with manual screeningOrdered By: Shin Coles on 08-30-2022 Thin prep Papanicolaou smear with manual screening 10 U/L 15-37 [facility] Thin prep Papanicolaou smear with manual screening 6 5-15 [facility] Absolute lymphocyte countOrd ered By: Shin Coles on 05-22-2022 Lymphocytes Auto (Unsp spec) [#/Vol] 2.30 10*3/uL 0.83-4.51 [facility] Basophil percentageOrdered B y: Shin Coles on 05-22-2022 Basophils/100 WBC (Bld) 0.4 % 0-1 [facility] Bilirubin [Mass/Vol] 0.40 mg/dL 0.20-1.00 [facility] Comment on above: For patients on eltr ombopag therapy, use of Dimension [place] TBIL is not recommended. Chloride [Moles/Vol] 107 mmol/L 98-107 [facility] Cholesterol [Mass/Vol] 93 mg/dL <200 [facility] Comment on above: <200 mg/dL Desirable 200-240 mg/dL Borderline >240 mg/dL High Risk Eosinophils/100 WBC (Bld) 1.4 % 0-5 [facility] Glucose [Mass/Vol] 116 mg/dL 74-106 [facility] Comment on above: Fasting Glucose resu lt from 100 to 125 mg/dL suggests IMPAIRED HOMEOSTASIS per A.D.A. criteria. Neutrophils (Bld) [#/Vol] 9.7 10*3/uL 2.0-7.7 [facility] Neutrophils/100 WBC (Bld) 68.5 % 47-70 [facility] Potassium [Moles/Vol] 4.1 mmol/L 3.5-5.1 [facility] Protein [Mass/Vol] 7.0 g/dL 6.4-8.2 [facility] Sodium [Moles/Vol] 134 mmol/L 136-145 [facility] Triglyceride [Mass/Vol] 111 mg/dL <199 [facility] Comment on above: The drugs N-Acetylcy steine and Metamizole may falsely depress this assay.Serum Triglycerides Reference Interval Normal <150 mg/dL Borderline high 150 - 199 mg/dL High 200 - 499 mg/dL Very High > or = 500 mg/dL WBC (Bld) [#/Vol] 14.2 10*3/uL 4.4-11.0 [facility] Blood erythrocytes count (nu mber/volume)Ordered By: Shin Coles on 05-22-2022 RBC (Bld) [#/Vol] 4.38 10*6/uL 4.6-6.2 [facility] Blood hemoglobin measurement (mass/volume)Ordered By: Shin Coles on 05-22-2022 Hemoglobin (Bld) [Mass/Vol] 12.7 g/dL 13.0-16.5 [facility] Blood lymphocytes/100 leukoc ytesOrdered By: Shin Coles on 05-22-2022 Lymphocytes/100 WBC (Bld) 16.2 % 19-41 [facility] Blood manual differential co mment interpretation (narrative result)Ordered By: Shin Coles on 05-22-2022 Manual differential comment Arthur (Bld) [Interp] SCANNED [facility] Blood monocytes/100 leukocyt esOrdered By: Shin Coles on 05-22-2022 Monocytes/100 WBC (Bld) 13.0 % 0-10 [facility] Blood platelet mean volumeOr dered By: Shin Coles on 05-22-2022 Platelet mean volume (Bld) [Entitic vol] 10.3 fL 6.2-12.0 [facility] Determination of erythrocyte mean corpuscular volume (MCV)Ordered By: Shin Coles on 05-22-2022 MCV (RBC) [Entitic vol] 92.2 fL 80-94 [facility] Hematocrit Auto (Bld) [Volum e fraction]Ordered By: Shin Coles on 05-22-2022 Hematocrit (Bld) [Volume fraction] 40.4 % 40-54 [facility] Laboratory - Chemistry and C hemistry - challengeOrdered By: Shin Coles on 05-22-2022 ALP [Catalytic activity/Vol] 80 U/L 45-117 [facility] ALT [Catalytic activity/Vol] 23 U/L 16-61 [facility] CO2 [Moles/Vol] 25.0 mmol/L 21.0-32.0 [facility] Globulin (S) [Mass/Vol] 3.7 g/dL 2.2-4.2 [facility] Urea nitrogen/Creatinine [Mass ratio] 10.9 mg/mg 10-20 [facility] Laboratory - Hematology and Cell countsOrdered By: Shin Coles on 04-10-2023 Erythrocyte distribution width (RBC) [Entitic vol] 49.4 fL 35.1-43.9 [facility] Erythrocyte distribution width (RBC) [Ratio] 14.8 % 11.6-14.6 [facility] Immature granulocytes/100 WBC (Bld) 0.500 % 0.0-0.9 [facility] Comment on above: IG% - Immature Granu locytes (promyelocytes, myelocytes and metamyelocytes) > 1% indicates that a LEFT SHIFT is Present. MCH (RBC) [Entitic mass] 29.0 pg 27.0-32.0 [facility] Nucleated RBC/100 WBC (Bld) [Ratio] 0 % 0-5 [facility] MCHC Auto (RBC) [Mass/Vol]Or dered By: Shin Coles on 05-22-2022 MCHC (RBC) [Mass/Vol] 31.4 g/dL 32-36 [facility] No Panel InformationOrdered By: Shin Coles on 05-22-2022 Estimated GFR (MDRD) Amer 108 mL/min >60 [facility] Comment on above: GFR Calc Estimated GFR (MDRD) Non-Af Amer 89 mL/min >60 [facility] Comment on above: Non- GFR Calc Platelets bldOrdered By: Debra Coles on 05-22-2022 Platelets (Bld) [#/Vol] 647 10*3/uL 150-450 [facility] Review by pathologistOrdered By: Shin Coles on 05-22-2022 Pathologist review Arthur (Unsp spec) [Interp] Reviewed [facility] Comment on above: Previous reported re sult: Zamzam torres Edited by: RGOBRYCE on 05/24/22:1049Leukocytosis. Thrombocytosis.Clinical correlation necessary.Joo Paul M.D. 05/24/22 AMENDED REPORT 05/24/22 1049 PATH REV previously reported as: Zamzam torres Serum or plasma albumin juni urement (mass/volume)Ordered By: Shin Coles on 05-22-2022 Albumin [Mass/Vol] 3.3 g/dL 3.2-5.0 [facility] Serum or plasma albumin/glob ulin mass ratioOrdered By: Shin Coles on 05-22-2022 Albumin/Globulin [Mass ratio] 0.9 {ratio} 0.9-2.4 [facility] Serum or plasma calcium juni urement (mass/volume)Ordered By: Shin Coles on 05-22-2022 Calcium [Mass/Vol] 8.5 mg/dL 8.5-10.1 [facility] Serum or plasma cholesterol in HDL measurement (mass/volume)Ordered By: Shin Coles on 05-22-2022 Cholesterol in HDL [Mass/Vol] 30 mg/dL >40 [facility] Comment on above: The drugs N-Acetylcy steine and Metamizole may falsely depress this assay. Reference Range HDL <40 mg/dL Low HDL Cholesterol HDL >or= 60 mg/dL High HDL Cholesterol Serum or plasma cholesterol in VLDL measurement (mass/volume)Ordered By: Shin Coles on 05-22-2022 Cholesterol in VLDL [Mass/Vol] 22 mg/dL 5-40 [facility] Serum or plasma creatinine m easurement (mass/volume)Ordered By: Shin Coles on 05-22-2022 Creatinine [Mass/Vol] 0.92 mg/dL 0.70-1.30 [facility] Comment on above: The validity of the calculated GFR & GFRAA in patients over 70 years has not been determined. Clinical correlation is essential. Serum or plasma low density lipoprotein (LDL) cholesterol measurement (mass/volume)Ordered By: Shin Coles on 05-22-2022 Cholesterol in LDL [Mass/Vol] 41 mg/dL 0-130 [facility] Serum or plasma urea nitroge n measurement (mass/volume)Ordered By: Shin Coles on 05-22-2022 Urea nitrogen [Mass/Vol] 10 mg/dL 7-18 [facility] Thin prep Papanicolaou smear with manual screeningOrdered By: Shin Coles on 05-22-2022 Thin prep Papanicolaou smear with manual screening 16 U/L 15-37 [facility] Thin prep Papanicolaou smear with manual screening 2 5-15 [facility] Whole blood hemoglobin A1c/t otal hemoglobin ratio (mass fraction)Ordered By: Shin Coles on 05-22-2022 HbA1c (Bld) [Mass fraction] 6.7 % 3.8-5.6 [facility] Comment on above: Normal < 5.7 % Predi abetic 5.7 - 6.4 % Diabetic >or= 6.5 % Please note range changes. Basophil percentageOrdered B y: Dr. Coles on 02-23-2022 Chloride [Moles/Vol] 106 mmol/L 98-107 [facility] Cholesterol [Mass/Vol] 137 mg/dL <200 [facility] Comment on above: <200 mg/dL Desirable 200-240 mg/dL Borderline >240 mg/dL High Risk Glucose [Mass/Vol] 202 mg/dL 74-106 [facility] Comment on above: Glucose result great er than or equal to 200 mg/dLsuggests DIABETES MELLITUS per A.D.A. criteria. Potassium [Moles/Vol] 4.7 mmol/L 3.5-5.1 [facility] Sodium [Moles/Vol] 139 mmol/L 136-145 [facility] Testosterone [Mass/Vol] 74.18 ng/dL [facility] Comment on above: CENTRAL 90% REFERENC E RANGES MALE AGE <50 197.44 - 669.58 ng/dL MALE AGE > or = 50 187.72 - 684.19 ng/dL FEMALE AGE <50 8.38 - 35.01 ng/dL FEMALE AGE > or = 50 <7.00 - 35.92 ng/dL Effective as of 09/07/20 Triglyceride [Mass/Vol] 142 mg/dL <199 [facility] Comment on above: The drugs N-Acetylcy steine and Metamizole may falsely depress this assay.Serum Triglycerides Reference Interval Normal <150 mg/dL Borderline high 150 - 199 mg/dL High 200 - 499 mg/dL Very High > or = 500 mg/dL Laboratory - Chemistry and C hemistry - challengeOrdered By: Dr. Coles on 02-23-2022 CO2 [Moles/Vol] 26.0 mmol/L 21.0-32.0 [facility] Urea nitrogen/Creatinine [Mass ratio] 16.5 mg/mg 10-20 [facility] No Panel InformationOrdered By: Dr. Coles on 02-23-2022 Estimated GFR (MDRD) Amer 94 mL/min >60 [facility] Comment on above: GFR Calc Estimated GFR (MDRD) Non-Af Amer 78 mL/min >60 [facility] Comment on above: Non- GFR Calc Prostate Specific Antigen Screen 3.71 ng/mL 0.00-4.00 [facility] Comment on above: This test was perfor med using the TPSA assay method for theCOFCO chemistry system. Values obtained with differentassay methods cannot be used interchangably.When changing PSA assays in the course of monitoring apatient, additional sequential testing should be carriedout to confirm baseline values. Thyroid Stimulating Hormone (TSH) 0.89 uIU/mL 0.358-3.74 [facility] Vitamin D 25-Hydroxy 10.6 ng/mL [facility] Comment on above: Vitamin D 25(OH) Sta tus Range Deficiency <20 ng/mL (50nmol/L) Insufficiency 20 - 30 ng/mL (50 - 75 nmol/L) Sufficiency 30 - 100 ng/mL (75 - 250 nmol/L) Toxicity >100 ng/mL (>250 nmol/L) Serum or plasma calcium juni urement (mass/volume)Ordered By: Dr. Coles on 02-23-2022 Calcium [Mass/Vol] 8.9 mg/dL 8.5-10.1 [facility] Serum or plasma cholesterol in HDL measurement (mass/volume)Ordered By: Dr. Coles on 02-23-2022 Cholesterol in HDL [Mass/Vol] 37 mg/dL >40 [facility] Comment on above: The drugs N-Acetylcy steine and Metamizole may falsely depress this assay. Reference Range HDL <40 mg/dL Low HDL Cholesterol HDL >or= 60 mg/dL High HDL Cholesterol Serum or plasma cholesterol in VLDL measurement (mass/volume)Ordered By: Dr. Coles on 02-23-2022 Cholesterol in VLDL [Mass/Vol] 28 mg/dL 5-40 [facility] Serum or plasma creatinine m easurement (mass/volume)Ordered By: Dr. Coles on 02-23-2022 Creatinine [Mass/Vol] 1.03 mg/dL 0.70-1.30 [facility] Comment on above: The validity of the calculated GFR & GFRAA in patients over 70 years has not been determined. Clinical correlation is essential. Serum or plasma low density lipoprotein (LDL) cholesterol measurement (mass/volume)Ordered By: Dr. Coles on 02-23-2022 Cholesterol in LDL [Mass/Vol] 72 mg/dL 0-130 [facility] Serum or plasma urea nitroge n measurement (mass/volume)Ordered By: Dr. Coles on 02-23-2022 Urea nitrogen [Mass/Vol] 17 mg/dL 7-18 [facility] Thin prep Papanicolaou smear with manual screeningOrdered By: Dr. Coles on 02-23-2022 Thin prep Papanicolaou smear with manual screening 7 5-15 [facility] Absolute lymphocyte counton 07-01-2021 Lymphocytes Auto (Unsp spec) [#/Vol] 2.90 10*3/uL 0.83-4.51 [facility] Work Phone: Basophil percentageon 2021 Basophils/100 WBC (Bld) 0.7 % 0-1 [facility] Work Phone: Eosinophils/100 WBC (Bld) 4.5 % 0-5 [facility] Work Phone: Neutrophils (Bld) [#/Vol] 4.4 10*3/uL 2.0-7.7 [facility] Work Phone: Neutrophils/100 WBC (Bld) 46.7 % 47-70 [facility] Work Phone: WBC (Bld) [#/Vol] 9.4 10*3/uL 4.4-11.0 [facility] Work Phone: Blood erythrocytes count (nu mber/volume)on 07-01-2021 RBC (Bld) [#/Vol] 3.96 10*6/uL 4.6-6.2 [facility] Work Phone: [phone] Blood hemoglobin measurement (mass/volume)on 07-01-2021 Hemoglobin (Bld) [Mass/Vol] 12.7 g/dL 13.0-16.5 [facility] Work Phone: Blood lymphocytes/100 leukoc yteson 07-01-2021 Lymphocytes/100 WBC (Bld) 30.9 % 19-41 [facility] Work Phone: Blood monocytes/100 leukocyt eson 07-01-2021 Monocytes/100 WBC (Bld) 16.8 % 0-10 [facility] Work Phone: Blood platelet mean volumeon 07-01-2021 Platelet mean volume (Bld) [Entitic vol] 10.3 fL 6.2-12.0 [facility] Work Phone: Determination of erythrocyte mean corpuscular volume (MCV)on 07-01-2021 MCV (RBC) [Entitic vol] 99.5 fL 80-94 [facility] Work Phone: Hematocrit Auto (Bld) [Volum e fraction]on 07-01-2021 Hematocrit (Bld) [Volume fraction] 39.4 % 40-54 [facility] Work Phone: Laboratory - Hematology and Cell countson 07-01-2021 Erythrocyte distribution width (RBC) [Entitic vol] 52.8 fL 35.1-43.9 [facility] Work Phone: Erythrocyte distribution width (RBC) [Ratio] 14.5 % 11.6-14.6 [facility] Work Phone: Immature granulocytes/100 WBC (Bld) 0.400 % 0.0-0.9 [facility] Work Phone: Comment on above: IG% - Immature Granu locytes (promyelocytes, myelocytes and metamyelocytes) > 1% indicates that a LEFT SHIFT is Present. MCH (RBC) [Entitic mass] 32.1 pg 27.0-32.0 [facility] Work Phone: Nucleated RBC/100 WBC (Bld) [Ratio] 0 % 0-5 [facility] Work Phone: MCHC Auto (RBC) [Mass/Vol]on 07-01-2021 MCHC (RBC) [Mass/Vol] 32.2 g/dL 32-36 [facility] Work Phone: Platelets bldon 07-01-2021 Platelets (Bld) [#/Vol] 528 10*3/uL 150-450 [facility] Work Phone: Basophil percentageon 2021 Creatinine [Mass/Vol] 0.8 mg/dL 0.70-1.30 [facility] Work Phone: No Panel Informationon 05-30 Bedside Estimated GFR (eGFR) > 60.0000 mL/min >60 [facility] Work Phone: Absolute lymphocyte counton 05-16-2021 Lymphocytes Auto (Unsp spec) [#/Vol] 3.71 10*3/uL 0.83-4.51 [facility] Work Phone: Basophil percentageon 2021 Basophils/100 WBC (Bld) 0.9 % 0-1 [facility] Work Phone: Eosinophils/100 WBC (Bld) 4.2 % 0-5 [facility] Work Phone: Neutrophils (Bld) [#/Vol] 5.2 10*3/uL 2.0-7.7 [facility] Work Phone: Neutrophils/100 WBC (Bld) 47.0 % 47-70 [facility] Work Phone: WBC (Bld) [#/Vol] 11.1 10*3/uL 4.4-11.0 [facility] Work Phone: Blood erythrocytes count (nu mber/volume)on 05-16-2021 RBC (Bld) [#/Vol] 4.23 10*6/uL 4.6-6.2 [facility] Work Phone: Blood hemoglobin measurement (mass/volume)on 05-16-2021 Hemoglobin (Bld) [Mass/Vol] 13.7 g/dL 13.0-16.5 [facility] Work Phone: Blood lymphocytes/100 leukoc yteson 05-16-2021 Lymphocytes/100 WBC (Bld) 33.5 % 19-41 [facility] Work Phone: Blood manual differential co mment interpretation (narrative result)on 05-16-2021 Manual differential comment Arthur (Bld) [Interp] See comment [facility] Work Phone: Comment on above: MONOCYTOSIS NOTED Blood monocytes/100 leukocyt eson 05-16-2021 Monocytes/100 WBC (Bld) 13.9 % 0-10 [facility] Work Phone: Blood platelet adequacy dete ction by light microscopyon 05-16-2021 Platelets LM Ql (Bld) [facility] Work Phone: Blood platelet mean volumeon 05-16-2021 Platelet mean volume (Bld) [Entitic vol] 11.0 fL 6.2-12.0 [facility] Work Phone: Determination of erythrocyte mean corpuscular volume (MCV)on 05-16-2021 MCV (RBC) [Entitic vol] 99.5 fL 80-94 [facility] Work Phone: Hematocrit Auto (Bld) [Volum e fraction]on 05-16-2021 Hematocrit (Bld) [Volume fraction] 42.1 % 40-54 [facility] Work Phone: Laboratory - Hematology and Cell countson 05-16-2021 Erythrocyte distribution width (RBC) [Entitic vol] 50.4 fL 35.1-43.9 [facility] Work Phone: Erythrocyte distribution width (RBC) [Ratio] 13.8 % 11.6-14.6 [facility] Work Phone: Immature granulocytes/100 WBC (Bld) 0.500 % 0.0-0.9 [facility] Work Phone: Comment on above: IG% - Immature Granu locytes (promyelocytes, myelocytes and metamyelocytes) > 1% indicates that a LEFT SHIFT is Present. MCH (RBC) [Entitic mass] 32.4 pg 27.0-32.0 [facility] Work Phone: Nucleated RBC/100 WBC (Bld) [Ratio] 0 % 0-5 [facility] Work Phone: MCHC Auto (RBC) [Mass/Vol]on 05-16-2021 MCHC (RBC) [Mass/Vol] 32.5 g/dL 32-36 [facility] Work Phone: Platelets bldon 05-16-2021 Platelets (Bld) [#/Vol] 532 10*3/uL 150-450 [facility] Work Phone: RBC morphologyon 05-16-2021 RBC morphology finding Nom (Bld) NORM C+C NORMAL NORM C&C [facility] Work Phone: Review by pathologiston Pathologist review Arthur (Unsp spec) [Interp] Reviewed [facility] Work Phone: Comment on above: Previous reported re sult: Zamzam torres Edited by: DEEP on 05/17/21:1326Leukocytosis. Thrombocytosis.Clinical correlation necessary.Joo Paul M.D. 05/17/21 AMENDED REPORT 05/17/21 1326 PATH REV previously reported as: Zamzam torres Basophil percentageon 2021 Chloride [Moles/Vol] 104 mmol/L 98-107 [facility] Work Phone: Glucose [Mass/Vol] 136 mg/dL 74-106 [facility] Work Phone: Comment on above: Fasting Glucose resu lt greater than or equal to 126 mg/dL suggests DIABETES MELLITUS per A.D.A. criteria. Potassium [Moles/Vol] 4.6 mmol/L 3.5-5.1 [facility] Work Phone: Sodium [Moles/Vol] 135 mmol/L 136-145 [facility] Work Phone: [phone] WBC (Bld) [#/Vol] 21.2 10*3/uL 4.4-11.0 [facility] Work Phone: Blood erythrocytes count (nu mber/volume)on 03-25-2021 RBC (Bld) [#/Vol] 3.81 10*6/uL 4.6-6.2 [facility] Work Phone: Blood hemoglobin measurement (mass/volume)on 03-25-2021 Hemoglobin (Bld) [Mass/Vol] 12.7 g/dL 13.0-16.5 [facility] Work Phone: Blood platelet mean volumeon 03-25-2021 Platelet mean volume (Bld) [Entitic vol] 10.4 fL 6.2-12.0 [facility] Work Phone: Determination of erythrocyte mean corpuscular volume (MCV)on 03-25-2021 MCV (RBC) [Entitic vol] 102.1 fL 80-94 [facility] Work Phone: Hematocrit Auto (Bld) [Volum e fraction]on 03-25-2021 Hematocrit (Bld) [Volume fraction] 38.9 % 40-54 [facility] Work Phone: Laboratory - Chemistry and C hemistry - challengeon 03-25-2021 CO2 [Moles/Vol] 24.0 mmol/L 21.0-32.0 [facility] Work Phone: Urea nitrogen/Creatinine [Mass ratio] 20.1 mg/mg 10-20 [facility] Work Phone: Laboratory - Hematology and Cell countson 03-25-2021 Erythrocyte distribution width (RBC) [Entitic vol] 53.5 fL 35.1-43.9 [facility] Work Phone: Erythrocyte distribution width (RBC) [Ratio] 14.1 % 11.6-14.6 [facility] Work Phone: MCH (RBC) [Entitic mass] 33.3 pg 27.0-32.0 [facility] Work Phone: MCHC Auto (RBC) [Mass/Vol]on 03-25-2021 MCHC (RBC) [Mass/Vol] 32.6 g/dL 32-36 [facility] Work Phone: No Panel Informationon 03-25 Estimated Creatinine Clearance Calc 59.77 ml/min [facility] Work Phone: Estimated GFR (MDRD) Amer 70 mL/min >60 [facility] Work Phone: Comment on above: GFR Calc Estimated GFR (MDRD) Non-Af Amer 58 mL/min >60 [facility] Work Phone: Comment on above: Non- GFR Calc Platelets bldon 03-25-2021 Platelets (Bld) [#/Vol] 467 10*3/uL 150-450 [facility] Work Phone: Serum or plasma calcium juni urement (mass/volume)on 03-25-2021 Calcium [Mass/Vol] 8.5 mg/dL 8.5-10.1 [facility] Work Phone: Serum or plasma creatinine m easurement (mass/volume)on 03-25-2021 Creatinine [Mass/Vol] 1.34 mg/dL 0.70-1.30 [facility] Work Phone: Comment on above: The validity of the calculated GFR & GFRAA in patients over 70 years has not been determined. Clinical correlation is essential. Serum or plasma urea nitroge n measurement (mass/volume)on 03-25-2021 Urea nitrogen [Mass/Vol] 27 mg/dL 7-18 [facility] Work Phone: Thin prep Papanicolaou smear with manual screeningon 03-25-2021 Thin prep Papanicolaou smear with manual screening 7 5-15 [facility] Work Phone: Glucose Glucometer (BldC) [M ass/Vol]on 03-24-2021 Glucose [Mass/Vol] 153 mg/dL 70-110 [facility] Work Phone: Comment on above: MANAGEMENT OF PATIEN T CARE PER NURSING PROTOCOL INR in Blood by Coagulation assayon 03-11-2021 INR Coag (Bld) [Relative time] 1.0 {INR} [facility] Work Phone: Laboratory - Coagulationon 0 03-11-2021 aPTT Coag (Bld) [Time] 28.6 s 24.1-36.2 [facility] Work Phone: PT Coag (PPP) [Time] 12.3 s 11.7-14.9 [facility] Work Phone: Absolute lymphocyte counton 03-09-2021 Lymphocytes Auto (Unsp spec) [#/Vol] 3.38 10*3/uL 0.83-4.51 [facility] Work Phone: Basophil percentageon 2021 Basophils/100 WBC (Bld) 0.5 % 0-1 [facility] Work Phone: Chloride [Moles/Vol] 107 mmol/L 98-107 [facility] Work Phone: Cholesterol [Mass/Vol] 139 mg/dL <200 [facility] Work Phone: Comment on above: <200 mg/dL Desirable 200-240 mg/dL Borderline >240 mg/dL High Risk Eosinophils/100 WBC (Bld) 4.0 % 0-5 [facility] Work Phone: Glucose [Mass/Vol] 134 mg/dL 74-106 [facility] Work Phone: Comment on above: Fasting Glucose resu lt greater than or equal to 126 mg/dL suggests DIABETES MELLITUS per A.D.A. criteria. Neutrophils (Bld) [#/Vol] 5.8 10*3/uL 2.0-7.7 [facility] Work Phone: Neutrophils/100 WBC (Bld) 52.0 % 47-70 [facility] Work Phone: Potassium [Moles/Vol] 5.1 mmol/L 3.5-5.1 [facility] Work Phone: Sodium [Moles/Vol] 141 mmol/L 136-145 [facility] Work Phone: [phone] Triglyceride [Mass/Vol] 230 mg/dL [facility] Work Phone: Comment on above: The drugs N-Acetylcy steine and Metamizole may falsely depress this assay.Serum Triglycerides Reference Interval Normal <150 mg/dL Borderline high 150 - 199 mg/dL High 200 - 499 mg/dL Very High > or = 500 mg/dL WBC (Bld) [#/Vol] 11.1 10*3/uL 4.4-11.0 [facility] Work Phone: Blood erythrocytes count (nu mber/volume)on 03-09-2021 RBC (Bld) [#/Vol] 4.37 10*6/uL 4.6-6.2 [facility] Work Phone: Blood hemoglobin measurement (mass/volume)on 03-09-2021 Hemoglobin (Bld) [Mass/Vol] 14.3 g/dL 13.0-16.5 [facility] Work Phone: Blood lymphocytes/100 leukoc yteson 03-09-2021 Lymphocytes/100 WBC (Bld) 30.5 % 19-41 [facility] Work Phone: Blood monocytes/100 leukocyt eson 03-09-2021 Monocytes/100 WBC (Bld) 12.3 % 0-10 [facility] Work Phone: Blood platelet mean volumeon 03-09-2021 Platelet mean volume (Bld) [Entitic vol] 10.4 fL 6.2-12.0 [facility] Work Phone: Determination of erythrocyte mean corpuscular volume (MCV)on 03-09-2021 MCV (RBC) [Entitic vol] 98.9 fL 80-94 [facility] Work Phone: Hematocrit Auto (Bld) [Volum e fraction]on 03-09-2021 Hematocrit (Bld) [Volume fraction] 43.2 % 40-54 [facility] Work Phone: Laboratory - Chemistry and C hemistry - challengeon 03-09-2021 CO2 [Moles/Vol] 24.0 mmol/L 21.0-32.0 [facility] Work Phone: Urea nitrogen/Creatinine [Mass ratio] 16.0 mg/mg 10-20 [facility] Work Phone: Laboratory - Hematology and Cell countson 03-09-2021 Erythrocyte distribution width (RBC) [Entitic vol] 52.5 fL 35.1-43.9 [facility] Work Phone: Erythrocyte distribution width (RBC) [Ratio] 14.2 % 11.6-14.6 [facility] Work Phone: Immature granulocytes/100 WBC (Bld) 0.700 % 0.0-0.9 [facility] Work Phone: Comment on above: IG% - Immature Granu locytes (promyelocytes, myelocytes and metamyelocytes) > 1% indicates that a LEFT SHIFT is Present. MCH (RBC) [Entitic mass] 32.7 pg 27.0-32.0 [facility] Work Phone: Nucleated RBC/100 WBC (Bld) [Ratio] 0 % 0-5 [facility] Work Phone: MCHC Auto (RBC) [Mass/Vol]on 03-09-2021 MCHC (RBC) [Mass/Vol] 33.1 g/dL 32-36 [facility] Work Phone: No Panel Informationon 03-09 Estimated GFR (MDRD) Amer 114 mL/min >60 [facility] Work Phone: Comment on above: GFR Calc Estimated GFR (MDRD) Non-Af Amer 94 mL/min >60 [facility] Work Phone: Comment on above: Non- GFR Calc Platelets bldon 03-09-2021 Platelets (Bld) [#/Vol] 535 10*3/uL 150-450 [facility] Work Phone: Serum or plasma calcium juni urement (mass/volume)on 03-09-2021 Calcium [Mass/Vol] 8.7 mg/dL 8.5-10.1 [facility] Work Phone: Serum or plasma cholesterol in HDL measurement (mass/volume)on 03-09-2021 Cholesterol in HDL [Mass/Vol] 37 mg/dL [facility] Work Phone: Comment on above: The drugs N-Acetylcy steine and Metamizole may falsely depress this assay. Reference Range HDL <40 mg/dL Low HDL Cholesterol HDL >or= 60 mg/dL High HDL Cholesterol Serum or plasma cholesterol in VLDL measurement (mass/volume)on 03-09-2021 Cholesterol in VLDL [Mass/Vol] 46 mg/dL 5-40 [facility] Work Phone: Serum or plasma creatinine m easurement (mass/volume)on 03-09-2021 Creatinine [Mass/Vol] 0.87 mg/dL 0.70-1.30 [facility] Work Phone: Comment on above: The validity of the calculated GFR & GFRAA in patients over 70 years has not been determined. Clinical correlation is essential. Serum or plasma low density lipoprotein (LDL) cholesterol measurement (mass/volume)on 03-09-2021 Cholesterol in LDL [Mass/Vol] 56 mg/dL 0-130 [facility] Work Phone: Serum or plasma urea nitroge n measurement (mass/volume)on 03-09-2021 Urea nitrogen [Mass/Vol] 14 mg/dL 7-18 [facility] Work Phone: Thin prep Papanicolaou smear with manual screeningon 03-09-2021 Thin prep Papanicolaou smear with manual screening 10 5-15 [facility] Work Phone: EP PROCEDURE - EPS/ABLATION/ DEVICEon 08-23-2017 EP PROCEDURE - EPS/ABLATION/DEVICE This is a 57 y.o. y/o male with a history of HTN and fast heart rates terminated with adenosine who was referred for EPS+RFA. ECG 08/20/2017 shows normal sinus rhythm with a rate of 74bpm, pr 122 ms, qrs 80ms, qtc 440ms, no epsilon wave, no J-point elevation, no brugada pattern, no ARVC criteria, no pre-excitation. EF by echo is normal . Conclusions 1. Baseline rhythm is sinus2. Normal sinus node function. 3. Normal AV node function, normal infranodal conduction (HV=42). 4. No evidence of accessory pathway was noted.5. There's evidence of dual AV node physiology. AH jump>50ms,Stim to R>R-R interval, echo beats.6. VA conduction present and decremental 7. SVT was induced with burst atrial pacing with isuprel. TCL 260ms. VA time was <70ms. Entrainment with ventricular pacing showed VAV response. PPI-TCL is long, >115ms.8. Carto 3D mapping system was used.9. Multiple RF lesions were applied and resulted in junctional rhythm.10. EPS after ablation showed normal SA and AV node functions.Recommend the followin. Routine sheath care2. Bedrest for 2 hours 3. Discontinue metoprolol4. Discharge home later tonight after bedrest.5. Follow up with EP on prn basis. Normal [facility] CBC,PLATELET,DIFFERENTIAL - CCLon 08-20-2017 Abs Baso 0.06 K/uL Normal <0.09 [facility] Comment on above: Performed By: #### TIMI AGRAWAL CHM7 ####[facility] [place], [place] [id number] [place] [address] Abs Eos 0.23 K/uL Normal <0.55 [facility] Comment on above: Performed By: #### TIMI AGRAWAL, HOLLIE7 ####[facility] [place], [place] [id number] [address] [place] [address] Abs Stoddard 1.81 K/uL High 0.30-0.82 [facility] Comment on above: Performed By: #### TIMI AGRAWAL, CHM7 ####[facility] [place], [place] [id number] [address] [place] [address] Basophils/100 WBC Auto (Bld) 0.4 % Normal [facility] Comment on above: Performed By: #### TIMI AGRAWAL, LUISITOM7 ####[facility] [place], [place] [id number] [address] [place] [address] DIFFERENTIAL TYPE Electronic Differential Normal [facility] Comment on above: Performed By: #### C TIMI MANN, CHM7 ####[facility] [place] [address]HgmxtdThe [facility] [place] [address]2847 Eosinophils/100 leukocytes 1.5 % Normal [facility] Comment on above: Performed By: #### C MACKENZIE, TIMI, CHM7 ####[facility] [place], [place] [id number] [address] [place] [address] Erythrocytes (RBC) 14.4 % Normal 11.6-14.4 [place] Comment on above: Performed By: #### C MACKENZIE, TIMI, CHM7 ####[facility] [place] [id number] [place], [place] [id number] [address] [place] [address] Erythrocytes (RBC) 4.37 10*6/uL Low 4.63-6.08 [facility] Comment on above: Performed By: #### C MACKENZIE, TIMI, CHM7 ####[facility] [place], [place] [id number] [address] [place] [address] Hematocrit (HCT) 41.5 % Normal 40.1-51.0 [facility] Comment on above: Performed By: #### C MACKENZIE, TIMI, CHM7 ####[facility] [place], [place] [id number] [address] [place] [address] 04934 Hemoglobin mass conc (Bld) 14.2 g/dL Normal 13.7-17.5 [facility] Comment on above: Performed By: #### C MACKENZIE, TIMI, CHM7 ####[facility] [place] [address] [place], [place] [id number] [address] [place] [address]89 IMMATURE GRANS % 0.4 % Normal [facility] Comment on above: Performed By: #### C MACKENZIE, TIMI, CHM7 ####[facility] [place] [phone] [place], [place] [id number] [address] [place] [address] 98094 IMMATURE GRANS ABSOLUTE 0.06 K/uL High <0.04 [facility] Comment on above: Performed By: #### C TIMI MANN, CHM7 ####[facility] [place] [phone] [place], [place] [id number] [address] [place] [address] 40690 Lymphocytes 5.57 10*3/uL High 1.32-3.57 [facility] Comment on above: Performed By: #### C TIMI MANN, CHM7 ####[facility] [place] [address] [place], [place] [id number] [address] [place] [address] 79424 Lymphocytes/100 leukocytes 37.3 % Normal [facility] Comment on above: Performed By: #### C TIMI MANN, CHM7 ####[facility] [place] [phone] [place], [place] [id number] [address] [place] [address] 96478 MCV 95.0 fL High 79.0-92.2 [facility] Comment on above: Performed By: #### C TIMI MANN, CHM7 ####[facility] [place] [address] 134[address]BussvoThe [facility] [place] [address] 45669 Mean Cell Hgb 32.5 pg High 25.7-32.2 [facility] Comment on above: Performed By: #### C MACKENZIE, TIMI, CHM7 ####[facility] [place] [address], [place] [address]LbbopoThe [facility] [place] [address] 46895 Mean Cell Hgb Conc 34.2 g/dL Normal 32.3-36.5 [place] Comment on above: Performed By: #### C MACKENZIE, TIMI, CHM7 ####[facility] [place] [address], [place] [address]ApdtsuThe [facility] [place] [address] 9[address]19 Monocytes/100 leukocytes 12.1 % Normal [facility] Comment on above: Performed By: #### C MACKENZIE, TIMI, CHM7 ####[facility] [place] [address], [place] [address]PycvuvThe [facility] [place] [address] 16660 NEUTROPHIL SEGMENTED 48.3 % Normal [facility] Comment on above: Performed By: #### C MACKENZIE, TIMI, CHM7 ####[facility] [place] [address]YdsysmThe [facility] [place] [address] 01086 Nucleated erythrocytes 0.0 /100 WBC Normal 0.0-0.2 [facility] Comment on above: Performed By: #### C MACKENZIE, TIMI, CHM7 ####[facility] [place] [address] 64[address]NilttwThe [facility] [place] [address] 26058 Platelet mean volume (PMV) 9.9 fL Normal 9.4-12.4 [facility] Comment on above: Performed By: #### C MACKENZIE, PTPTOBIN, CHM7 ####[facility] [place] [address], [place] [address]NtxwofThe [facility] [place] [address] 19489 Platelets 495 10*3/uL High 163-337 [facility] Comment on above: Performed By: #### C MACKENZIE, PTPTT, CHM7 ####[facility] [place] [address] [place], [place] [id number] [address] [place] [address] 15251 SEGS + Bands,Absolute 7.22 K/uL High 1.78-5.38 [facility] Comment on above: Performed By: #### C BCSERENEC, PTPTT, CHM7 ####[facility] [place], [place] [id number] [address] [place] [address] 57043 WBC (Leukocytes) 14.95 10*3/uL High 4.23-9.07 [facility] Comment on above: Performed By: #### C BCDFC, PTPTT, CHM7 ####[facility] [place], [place] [id number] [address] [place] [address] 41988 CHEM 7on - Anion gap 15 mmol/L Normal 7-17 [facility] Comment on above: Performed By: #### C MACKENZIE, PTPTT, CHM7 ####[facility] [place], [place] [id number] [address] [place] [address] BUN/Creatinine Ratio 20 mg/mg Normal [facility] Comment on above: Performed By: #### C BCDFC, PTPTT, CHM7 ####[facility] [place], [place] [id number] [address] [place] [address] Chloride 103 mmol/L Normal 98-108 [facility] Comment on above: Performed By: #### C BCDFC, PTPTT, CHM7 ####[facility] [place] [address] [place], [place] [id number] [address] [place] [address] 65267 CO2 24 mmol/L Normal 22-30 [facility] Comment on above: Performed By: #### C BCDFC, PTPTT, CHM7 ####[facility] [place], [place] [id number] [address] [place] [address] 71532 Creatinine 0.75 mg/dL Normal 0.70-1.30 [facility] Comment on above: Performed By: #### C BCDFC, PTPTT, CHM7 ####[facility] [place], [place] [id number] [address] [place] [address] 99834 Est GFR, >60 Normal >60 [facility] Comment on above: Performed By: #### C BCDFC, PTPTT, CHM7 ####[facility] [place], [place] [id number] [address] [place] [address] 02638 Est GFR,non >60 Normal >60 [facility] Comment on above: Performed By: #### C BCDFC, PTPTT, CHM7 ####[facility] [place], [place] [id number] [address] [place] [address] 38783 Glucose mass conc 100 mg/dL High 70-99 [facility] Comment on above: Performed By: #### C BCDFC, PTPTT, CHM7 ####[facility] [place], [place] [id number] [address] [place] [address] 52340 Osmolality 290 mOsm/kg Normal 278-305 [facility] Comment on above: Performed By: #### C BCDFC, PTPTT, CHM7 ####[facility] [place] [address] [place], [place] [id number] [address] [place] [address] 15014 Potassium molar conc 4.0 mmol/L Normal 3.5-5.0 [facility] Comment on above: Performed By: #### C TIMI MANN, CHM7 ####[facility] [place], [place] [id number] [address] [place] [address] 66610 Sodium 138 mmol/L Normal 133-143 [facility] Comment on above: Performed By: #### C TIMI MANN, DANTE ####[facility] [place], [place] [id number] [address] [place] [address] Urea nitrogen 15 mg/dL Normal 7-22 [facility] Comment on above: Performed By: #### C TIMI MANN, CHM7 ####[facility] [place], [place] [id number] [address] [place] [address] 82145 PT*PTTon 08-20-2017 aPTT 27.1 s Normal 24.0-34.3 [facility] Comment on above: Performed By: #### TIMI AGRAWAL, CHM7 ####[facility] [place], [place] [id number] [address] [place] [address] 64856 INR Coag RelTime (PPP) 1.0 {INR} Normal 0.9-1.[address] [facility] Comment on above: Performed By: #### C TIMI MANN, CHM7 ####[facility] [place], [place] [id number] [address] [place] [address] 56767 Prothrombin time (PT) Coag time (PPP) 13.1 s Normal 11.9-14.2 [facility] Comment on above: Performed By: #### C BCDFC, PTPTT, CHM7 ####[facility] [place], [place] [address]YucnjyThe [facility] System[address] [place], [place] [address] Vital Signs Date Time Vital Sign Value Performing Clinician Faci lity 11-06-2024 13:03-0400 Body height 177.[address] Shin Coles MD Work Phone: [facility] 11-06-2024 13:03-0400 Body mass index (BMI) [Ratio] 39 kg/m2 Dr. Shin Coles MD Work Phone: [facility] 11-06-2024 13:03-0400 Body weight 123.[address] Shin Coles MD Work Phone: [phone] [place] [address] 11-06-2024 13:03-0400 Diastolic blood pressure 88 mm[Hg] Dr. Shin Coles MD Work Phone: [facility] 11-06-2024 13:03-0400 Heart rate 70 /min Dr. Shin Coles MD Work Phone: [facility] 11-06-2024 13:03-0400 Respiratory rate 16 /min Dr. Shin Coles MD Work Phone: [facility] 11-06-2024 13:03-0400 Systolic blood pressure 158 mm[Hg] Dr. Shin Coles MD Work Phone: [facility] 02-21-2023 12:57-0500 Body height 177.[address] Shin Coles Work Phone: [facility] 02-21-2023 12:57-0500 Body mass index (BMI) [Ratio] 39.6 kg/m2 Dr. Shin Coles Work Phone: [facility] 02-21-2023 12:57-0500 Body weight 125.[address] Shin Coles Work Phone: [facility] 02-21-2023 12:57-0500 Diastolic blood pressure 72 mm[Hg] Dr. Shin Coles Work Phone: [facility] 02-21-2023 12:57-0500 Heart rate 73 /min Dr. Shin Coles Work Phone: [facility] 02-21-2023 12:57-0500 Respiratory rate 16 /min Dr. Shin Coles Work Phone: [facility] 02-21-2023 12:57-0500 Systolic blood pressure 128 mm[Hg] Dr. Shin Coles Work Phone: [facility] 06-10-2021 09:35-0400 Body temperature 98.2 [degF] Dr. Shin Coles Work Phone: [facility] Work Phone: 06-10-2021 09:35-0400 Diastolic blood pressure 79 mm[Hg] Dr. Shin Coles Work Phone: [facility] Work Phone: 06-10-2021 09:35-0400 Heart rate 79 /min Dr. Shin Coles Work Phone: [facility] Work Phone: 06-10-2021 09:35-0400 Respiratory rate 18 /min Dr. Shin Coles Work Phone: [facility] Work Phone: 06-10-2021 09:35-0400 SaO2% (BldA) [Mass fraction] 95 % Dr. Shin Coles Work Phone: [facility] Work Phone: 06-10-2021 09:35-0400 Systolic blood pressure 129 mm[Hg] Dr. Shin Coles Work Phone: [facility] Work Phone: 06-10-2021 08:11-0400 Body height 177.[address] Shin Coles Work Phone: [facility] Work Phone: 06-10-2021 08:11-0400 Body mass index (BMI) [Ratio] 45 kg/m2 Dr. Shin Coles Work Phone: [facility] Work Phone: 06-10-2021 08:11-0400 Body weight 142.[address] Shin Coles Work Phone: [facility] Work Phone: 05-23-2021 14:28-0400 Body height 177.[address] Shin Coles Work Phone: [facility] Work Phone: 05-23-2021 14:28-0400 Body mass index (BMI) [Ratio] 45.5 kg/m2 Dr. Shin Coles Work Phone: [facility] Work Phone: 05-23-2021 14:28-0400 Body temperature 97.8 [degF] Dr. Shin Coles Work Phone: [facility] Work Phone: 05-23-2021 14:28-0400 Body weight 143.[address] Shin Coles Work Phone: [facility] Work Phone: 05-23-2021 14:28-0400 Diastolic blood pressure 92 mm[Hg] Dr. Shin Coles Work Phone: [facility] Work Phone: 05-23-2021 14:28-0400 Heart rate 82 /min Dr. Shin Coles Work Phone: [facility] Work Phone: 05-23-2021 14:28-0400 Respiratory rate 18 /min Dr. Shin Coles Work Phone: [facility] Work Phone: 05-23-2021 14:28-0400 SaO2% (BldA) [Mass fraction] 98 % Dr. Shin Coles Work Phone: [facility] Work Phone: 05-23-2021 14:28-0400 Systolic blood pressure 149 mm[Hg] Dr. Shin Coles Work Phone: [facility] Work Phone: 03-25-2021 16:12-0500 Body temperature 98.2 [degF] Dr. Shin Coles Work Phone: [facility] Work Phone: 03-25-2021 16:12-0500 Diastolic blood pressure 75 mm[Hg] Dr. Shin Coles Work Phone: [facility] Work Phone: 03-25-2021 16:12-0500 Heart rate 76 /min Dr. Shin Coles Work Phone: [facility] Work Phone: 03-25-2021 16:12-0500 Respiratory rate 20 /min Dr. Shin Coles Work Phone: [facility] Work Phone: 03-25-2021 16:12-0500 SaO2% (BldA) [Mass fraction] 95 % Dr. Shin Coles Work Phone: [facility] Work Phone: 03-25-2021 16:12-0500 Systolic blood pressure 121 mm[Hg] Dr. Shin Coles Work Phone: [facility] Work Phone: 03-24-2021 17:15-0500 Body mass index (BMI) [Ratio] 43 kg/m2 Dr. Shin Coles Work Phone: [facility] Work Phone: 03-24-2021 17:15-0500 Body weight [address] Shin Coles Work Phone: [facility] Work Phone: Encounters Encounter Date Encounter Type Care Provider Facility Start: 12-23-2024 ambulatory Shin Coles Facility:[facility] Start: 11-06-2024 End: 11-06-[address] Marc Baeza MD -[facility] Work Phone: Start: 11-06-2024 End: 11-06-[address] Shin Coles MD Work Phone: -[facility] Start: 09-17-2024 End: 09-17-[address] Shin Coles MD Work Phone: -Cat Scan [facility] Start: 09-17-2024 End: 09-17-2024 Patient encounter procedure Molly Alejandre PA -Cat Scan [facility] Work Phone: Start: 09-17-2024 End: 09-17-2024 ambulatory Shin Coles Facility:[facility] Start: 08-05-2024 End: 08-05-[address] Shin Coles MD Work Phone: -[facility] Start: 08-05-2024 End: 08-05-[address] Andrea Alvarez DO -[facility] Work Phone: Start: 08-05-2024 End: 08-05-2024 ambulatory Shin Coles Facility:[facility] Start: 03-28-2024 End: 03-28-2024 ambulatory Shin Coles Facility:[facility] Start: 01-24-2024 End: 01-24-[facility] Start: 01-24-2024 End: 01-24-2024 ambulatory Shin Coles Facility:[facility] Start: 01-15-2024 ambulatory Patti Malka Facility:[facility] Start: 01-09-2024 End: 01-09-2024 ambulatory Shin Coles Facility:[facility] Start: 09-18-[address] Shin Coles MD Work Phone: [facility] Comment on above: Abdominal hernia X2 Start: 05-09-2023 End: 05-09-[address] Shin Coles Work Phone: [facility] Work Phone: Start: 05-09-2023 End: 05-09-[address] Shin Coles Work Phone: [facility] Work Phone: Start: 04-02-2023 Non-patient / Non-visit Dr. Rudi Coles Work Phone: [facility] Start: 04-02-2023 End: 04-02-[address] Shin Coles Work Phone: [facility] Work Phone: Start: 04-02-2023 End: 04-02-[address] [facility] Start: 03-07-2023 End: 03-07-[address] Shin Coles Work Phone: [facility] Work Phone: Start: 03-07-2023 End: 03-07-[address] Shin Coles Work Phone: [facility] Work Phone: Start: 02-21-2023 End: 02-21-[address] Shin Coles Work Phone: [facility] Work Phone: Start: 12-01-2022 End: 12-01-2022 ambulatory [facility] Work Phone: Start: 12-01-2022 End: 12-01-2022 Patient encounter procedure [facility] Start: 08-30-2022 End: 08-30-2022 ambulatory [facility] Work Phone: Start: 08-30-2022 End: 08-30-2022 Patient encounter procedure [facility] Start: 05-22-2022 End: 05-22-2022 Patient encounter procedure [facility] Start: 02-23-2022 End: 02-23-2022 ambulatory [facility] Work Phone: Start: 02-23-2022 End: 02-23-2022 Patient encounter procedure [facility] Start: 10-28-2021 End: 10-28-2021 ambulatory [facility] Work Phone: Start: 10-28-2021 End: 10-28-2021 Patient encounter procedure [facility] Start: 07-01-2021 End: 07-01-[address] Shin Coles Work Phone: [facility] Start: 06-10-2021 Non-patient / Non-visit Dr. Rudi Coles Work Phone: [facility] Start: 06-10-2021 End: 06-10-2021 Admission to same day surgery center Dr. Shin Coles Work Phone: [facility] Start: 06-03-2021 End: 06-03-[address] Shin Coles Work Phone: [facility] Start: 05-30-2021 End: 05-30-[address] Shin Coles Work Phone: [facility] Start: 05-23-2021 End: 05-23-[address] Shin Coles Work Phone: [facility] Start: 05-16-2021 End: 05-16-[address] Shin Coles Work Phone: [facility] Start: 03-25-2021 Non-patient / Non-visit Dr. Rudi Coles Work Phone: [facility] Start: 03-24-2021 Non-patient / Non-visit Dr. Rudi Coles Work Phone: [facility] Start: 03-24-2021 End: 03-25-2021 Evaluation and management of inpatient Dr. Shin Coles Work Phone: [facility] 3 Start: 03-09-2021 End: 03-09-[address] Shin Coles Work Phone: [facility] Start: 03-01-2021 End: 03-01-[address] Shin Coles Work Phone: [facility]-Cat Scan, [facility] Start: 08-20-2017 End: 08-20-2017 Patient encounter GABE DEAN [facility] Procedures Date Procedure Procedure Detail Performing Clinician Start: 09-17-2024 CT of upper limb wit hout contrast Dr. Shin Coles MD Work Phone: Start: 04-02-2023 Radionuclide imaging of perfusion of myocardium under exercise stress Dr. Shin Coles Work Phone: Start: 10-28-2021 CT of upper limb wit hout contrast Start: 06-10-[address] Shin jacobsen Work Phone: Start: 05-30-2021 Computed tomography of abdomen and pelvis with contrast Dr. Shin Coles Work Phone: Start: 03-24-2021 Plain X-ray of shoulder Dr. Shin Coles Work Phone: Start: 03-11-2021 Plain chest X-ray Dr. Traci Coles Work Phone: Start: 03-01-2021 CT of upper limb wit hout contrast Dr. Shin Coles Work Phone: Plan of Treatment Date Care Activity Detail Author Start: 06-10-2021 Colonoscopy flx dx w/collj spec when pfrmd DIAGNOSTIC COLONOSCOPY [facility] Work Phone: Start: 03-24-2021 Anes arthroscopic to jolie shoulder replacement ANESTH SHOULDER REPLACEMENT [facility] Work Phone: Start: 03-24-2021 Arthroplasty glenohumeral joint total shoulder RECONSTRUCT SHOULDER JOINT [facility] Work Phone: Patient referral [facility] Work Phone: Radionuclide imaging of perfusion of myocardium under exercise stress [facility] Immunizations Immunization Date Immunization Notes Care Provider Fa cility 01-09-2021 Covid (Pfizer) Dr. Shin reid Work Phone: [facility] 12-20-[address] Shin Coles Work Phone: [facility] 05-20-2020 Covid (Pfizer) Dr. Shin reid Work Phone: [facility] 05-01-2020 Covid (Pfizer) Dr. Shin reid Work Phone: [facility] Payers Date Payer Category Payer Self-pay [id number] 2021 Unknown [id number] 2017 Unknown [id number] Unknown [id number] Unknown [id number] 2.16.8 [id number] Unknown [id number] 2.16.8 [id number] Unknown [id number] 2.16.8 [id number] Unknown [id number] 2.16.8 [id number] Unknown [id number] 2.16.8 [id number] Unknown [id number] 2.16.8 [id number] Unknown [id number] 2.16.8 [id number] Unknown [id number] 2.16.8 [id number] Unknown [id number] 2.16.8 [id number] Social History Date Type Detail Facility Start: 05-23-2021 End: 02-21-2023 Tobacco smoking status IDIS Unknown if ever smoked [facility] Start: 1960 Sex Assigned At Male W [facility] Start: 01-24-2024 [facility] Sex Male [facility] Medical Equipment Procedure Code Equipment Code Equipment Origin al Text Equipment Identifier Dates Repair, hernia, ventral or umbilical, laparoscopic Extra-gynaecologica l surgical mesh, composite-polymer [id number] FDA Start: 11-19-2023 Repair, hernia, ventral or umbilical, laparoscopic Endoscopic manual linear stapler [id number] FDA Start: 11-19-2023 CENTRAL SCREW FDA Start: 03-24-2021 FLEX SHOULDER SYSTEM FLEX TRAY FDA Start: 03-24-2021 FLEX SHOULDER SYSTEM REVERSE FDA Start: 03-24-2021 HALF WEDGE AUGME NT BASEPLATE FDA Start: 03-24-2021 PERIPHERAL SCREW FDA Start: 03-24-2021 STANDARD GLENOSPHERE FDA Start: 03-24-2021 STANDARD PTC HUMERAL STEM FDA Start: 03-24-2021 CENTRAL SCREW FDA Start: 03-24-2021 FLEX SHOULDER SYSTEM FLEX TRAY FDA Start: 03-24-2021 FLEX SHOULDER SYSTEM REVERSE FDA Start: 03-24-2021 HALF WEDGE AUGME NT BASEPLATE FDA Start: 03-24-2021 PERIPHERAL SCREW FDA Start: 03-24-2021 STANDARD GLENOSPHERE FDA Start: 03-24-2021 STANDARD PTC HUMERAL STEM FDA Start: 03-24-2021 CENTRAL SCREW FDA Start: 03-24-2021 FLEX SHOULDER SYSTEM FLEX TRAY FDA Start: 03-24-2021 FLEX SHOULDER SYSTEM REVERSE FDA Start: 03-24-2021 HALF WEDGE AUGME NT BASEPLATE FDA Start: 03-24-2021 PERIPHERAL SCREW FDA Start: 03-24-2021 STANDARD GLENOSPHERE FDA Start: 03-24-2021 STANDARD PTC HUMERAL STEM FDA Start: 03-24-2021 CENTRAL SCREW FDA Start: 03-24-2021 FLEX SHOULDER SYSTEM FLEX TRAY FDA Start: 03-24-2021 FLEX SHOULDER SYSTEM REVERSE FDA Start: 03-24-2021 HALF WEDGE AUGME NT BASEPLATE FDA Start: 03-24-2021 PERIPHERAL SCREW FDA Start: 03-24-2021 STANDARD GLENOSPHERE FDA Start: 03-24-2021 STANDARD PTC HUMERAL STEM FDA Start: 03-24-2021 CENTRAL SCREW FDA Start: 03-24-2021 FLEX SHOULDER SYSTEM FLEX TRAY FDA Start: 03-24-2021 FLEX SHOULDER SYSTEM REVERSE FDA Start: 03-24-2021 HALF WEDGE AUGME NT BASEPLATE FDA Start: 03-24-2021 PERIPHERAL SCREW FDA Start: 03-24-2021 STANDARD GLENOSPHERE FDA Start: 03-24-2021 STANDARD PTC HUMERAL STEM FDA Start: 03-24-2021 CENTRAL SCREW FDA Start: 03-24-2021 FLEX SHOULDER SYSTEM FLEX TRAY FDA Start: 03-24-2021 FLEX SHOULDER SYSTEM REVERSE FDA Start: 03-24-2021 HALF WEDGE AUGME NT BASEPLATE FDA Start: 03-24-2021 PERIPHERAL SCREW FDA Start: 03-24-2021 STANDARD GLENOSPHERE FDA Start: 03-24-2021 STANDARD PTC HUMERAL STEM FDA Start: 03-24-2021 CENTRAL SCREW FDA Start: 03-24-2021 FLEX SHOULDER SYSTEM FLEX TRAY FDA Start: 03-24-2021 FLEX SHOULDER SYSTEM REVERSE FDA Start: 03-24-2021 HALF WEDGE AUGME NT BASEPLATE FDA Start: 03-24-2021 PERIPHERAL SCREW FDA Start: 03-24-2021 STANDARD GLENOSPHERE FDA Start: 03-24-2021 STANDARD PTC HUMERAL STEM FDA Start: 03-24-2021 CENTRAL SCREW FDA Start: 03-24-2021 FLEX SHOULDER SYSTEM FLEX TRAY FDA Start: 03-24-2021 FLEX SHOULDER SYSTEM REVERSE FDA Start: 03-24-2021 HALF WEDGE AUGME NT BASEPLATE FDA Start: 03-24-2021 PERIPHERAL SCREW FDA Start: 03-24-2021 STANDARD GLENOSPHERE FDA Start: 03-24-2021 STANDARD PTC HUMERAL STEM FDA Start: 03-24-2021 CENTRAL SCREW FDA Start: 03-24-2021 FLEX SHOULDER SYSTEM FLEX TRAY FDA Start: 03-24-2021 FLEX SHOULDER SYSTEM REVERSE FDA Start: 03-24-2021 HALF WEDGE AUGME NT BASEPLATE FDA Start: 03-24-2021 PERIPHERAL SCREW FDA Start: 03-24-2021 STANDARD GLENOSPHERE FDA Start: 03-24-2021 STANDARD PTC HUMERAL STEM FDA Start: 03-24-2021 CENTRAL SCREW FDA Start: 03-24-2021 FLEX SHOULDER SYSTEM FLEX TRAY FDA Start: 03-24-2021 FLEX SHOULDER SYSTEM REVERSE FDA Start: 03-24-2021 HALF WEDGE AUGME NT BASEPLATE FDA Start: 03-24-2021 PERIPHERAL SCREW FDA Start: 03-24-2021 STANDARD GLENOSPHERE FDA Start: 03-24-2021 STANDARD PTC HUMERAL STEM FDA Start: 03-24-2021 CENTRAL SCREW FDA Start: 03-24-2021 FLEX SHOULDER SYSTEM FLEX TRAY FDA Start: 03-24-2021 FLEX SHOULDER SYSTEM REVERSE FDA Start: 03-24-2021 HALF WEDGE AUGME NT BASEPLATE FDA Start: 03-24-2021 PERIPHERAL SCREW FDA Start: 03-24-2021 STANDARD GLENOSPHERE FDA Start: 03-24-2021 STANDARD PTC HUMERAL STEM FDA Start: 03-24-2021 CENTRAL SCREW FDA Start: 03-24-2021 FLEX SHOULDER SYSTEM FLEX TRAY FDA Start: 03-24-2021 FLEX SHOULDER SYSTEM REVERSE FDA Start: 03-24-2021 HALF WEDGE AUGME NT BASEPLATE FDA Start: 03-24-2021 PERIPHERAL SCREW FDA Start: 03-24-2021 STANDARD GLENOSPHERE FDA Start: 03-24-2021 STANDARD PTC HUMERAL STEM FDA Start: 03-24-2021 CENTRAL SCREW FDA Start: 03-24-2021 FLEX SHOULDER SYSTEM FLEX TRAY FDA Start: 03-24-2021 FLEX SHOULDER SYSTEM REVERSE FDA Start: 03-24-2021 HALF WEDGE AUGME NT BASEPLATE FDA Start: 03-24-2021 PERIPHERAL SCREW FDA Start: 03-24-2021 STANDARD GLENOSPHERE FDA Start: 03-24-2021 STANDARD PTC HUMERAL STEM FDA Start: 03-24-2021 CENTRAL SCREW FDA Start: 03-24-2021 FLEX SHOULDER SYSTEM FLEX TRAY FDA Start: 03-24-2021 FLEX SHOULDER SYSTEM REVERSE FDA Start: 03-24-2021 HALF WEDGE AUGME NT BASEPLATE FDA Start: 03-24-2021 PERIPHERAL SCREW FDA Start: 03-24-2021 STANDARD GLENOSPHERE FDA Start: 03-24-2021 STANDARD PTC HUMERAL STEM FDA Start: 03-24-2021 Functional Status Date Assessment Result Facility 03-25-2021 Functional status Chair [facility] Work Phone: Mental Status Date Assessment Result Facility 06-10-2021 Cognitive function Voice/Name [facility] Work Phone: 03-25-2021 Cognitive function Voice/Name [facility] Work Phone: 03-25-2021 [facility] Progress note 11-06-2024 Note Date & Type Note Facility 11-06-[address] [facility] Radiology Diagnostic study note 09-17-2024 Note Date & Type Note Facility 09-17-2024 Radiology Diagnostic study note [facility] Imaging Services [address] [place], [place] [address] Extremity Upper without Contra MR#: [id number] Acct: [id number] Name: REJI CARRENO Rep #: [id number] : 1960 M 64 From: Magnus Browning MD PCP: Dr. Shin Coles MD Status: REG C GLORIA Study:Extremity Upper without Contra Date of Exam: 09/17/24 Exam# [id number] Ordering Dr: Molly Alejandre PROCEDURE: EXTREMITY UPPER WITHOUT CONTRA 09/17/2024 REASON FOR EXAM: [facility] LOOSENING OF INTERNAL PROSTH. JOINT/PAIN TECHNIQUE: EXTREMITY UPPER WITHOUT CONTRA Coronal and Sagittal reconstruction series were provided. One or more dose reduction techniques were used (e.g., Automated exposure control, adjustment of the mA and/or kV according to patient size, use of iterative reconstruction technique. RADIATION DOSE SUMMARY: DLP: 994.09 mGycm COMPARISON: Right shoulder CT of 10/28/2021. FINDINGS: The examination is limited by metallic artifact from the reverse right total shoulder prosthesis. A chronic appearing comminuted fracture of the acromion is seen. This was not present on the prior examination of 2021. Moderate right acromioclavicular joint degenerative changes are noted, with marked associated joint narrowing. A reverse right total shoulder prosthesis is in place, with question of fractureof the screw through the glenoid. This should be confirmed on plain film with the superior spatial resolution and lack associated metallic artifact. No other findings are seen to suggest loosening of the right shoulder prosthesis. No acute fracture site is seen CT/Extremity Upper without Contra IMPRESSION: Question fracture of the screw through the glenoid from the reverse right total shoulder prosthesis. This should be confirmed on plain film with the superior spatial resolution and lack associated metallic artifact. Reading Location: [place] [address] CC: Dr. Shin Coles MD; RUDI Arechiga ~ Produce Clerk: Signed [facility] Evaluation note 08-20-2017 Note Date & Type Note Facility 08-20-2017 Evaluation note Diagnosis Onset Date Chest pain acute History of radiofrequency ablation procedure for cardiac arrhythmia August 20, 2017 acute Paroxysmal supraventricular tachycardia [facility] Work Phone: Evaluation note 08-20-2017 Note Date & Type Note Facility 08-20-2017 Evaluation note Diagnosis Onset Date Resolution History of radiofrequency ablation procedure for cardiac arrhythmia August 20, 2017 acute November 06, 2024 1:02pm Hyperlipidemia acute November 06, 2024 1:02pm Hypertension chronic November 062024 1:02pm Paroxysmal supraventricular tachycardia chronic November 06, 2024 1:02pm [facility] Work Phone: Evaluation note Note Date & Type Note Facility Evaluation note Diagnosis Onset Date Status post total replacemen t of right shoulder acute Suspected sleep apnea acute Abdominal pain [facility] Work Phone: Evaluation note Note Date & Type Note Facility Evaluation note Diagnosis Onset Date Status post total replacemen t of right shoulder acute Suspected sleep apnea acute Abdominal pain acute Abdominal pain acute Blood in stool [facility] Work Phone: Evaluation note Note Date & Type Note Facility Evaluation note No assessment information availa ble [facility] Work Phone: Progress note Note Date & Type Note Facility Progress note Note Date/Time November 06, 2024 1:18pm [facility] [address] [place] [address] OFFICE VISIT Date of Service: 11/06/24 MR#: [id number] Acct: [id number] Name: REJI CARRENO Rep #: [id number] : 1960 Provider: Dr. Isis Baeza MD Age/Sex: 64/M Location: [facility] Status: Signed HPI HPI History of Present Illness Details: Pleasant 64-year-old man with a previous history of supraventricular tachyarrhythmia status post radiofrequency ablation for slow pathway in 2018. He is also had a history of right shoulder replacement and more recently he tells me that he has been started experiencing palpitations. They do not appearto be as severe as what he had before but he has had some episodes. As part of his workup he had a 7-day monitor placed and it demonstrated predominantly sinusrhythm with an average heart rate of 80 bpm, minimum of 49 bpm and max 122 bpm in sinus rhythm. Occasional atrial tachycardia episodes were noted with the longest being 122 bpm and the fastest at 125 bpm. The PVC burden rate was 3%. He is not sure whether he felt all of this. His last echocardiogram was in March 2023 demonstrating ejection fraction of 65%. He denies chest, arm, jaw, or neck discomfort. He states palpitations over the last 2 days that he describes as skipping. He denies bilateral lower extremity edema. He denies claudication. He denies shortness of breath with activity, shortness of breath at rest, orthopnea, or PND. He denies chronic cough. He denies significant, sudden weight gain. He denies lightheadedness, dizziness, near-syncope, or syncope. He denies blood in urine, blood in stool, or epistaxis. He denies fever with chills. He denies myalgia. He denies fatigue. His exercise level has remained stable. Intake Vital Signs 09/18/23 12:49 01/24/24 13:19 11/06/24 13:03 Height 5 ft 10 in 5 ft 10 in 5 ft 10 in Weight: 272 lb BMI 39.0 BP 158/88 H Blood Pressure Location Lt brachial Position Sitting Respiration 16 Pulse 70 Pulse Source Monitor Intake Visit Reasons: 1 Y FU Tower Director Required: No Accompanied by: Self Is patient in pain?: No Allergies No Known Allergies Allergy (Verified 11/06/24 13:06) Medications ?Medication ?Instructions ?Recorded ?Confirmed ?Type metoprolol tartrate 50 mg tablet 50 mg PO BID 06/16/17 11/06/24 History gabapentin 300 mg capsule 300 mg PO QHS 01/18/2311/06 History metformin 1,000 mg tablet 1,000 mg PO BID 01/18/23 History doxazosin 2 mg tablet 2 mg PO QHS 02/21/23 5 History vitamin B complex (B 1 tab PO DAILY 02/21/2310/14 History Complex-Vitamin B12 tablet) zinc gluconate 50 mg tablet 50 mg PO DAILY 09/18/23 History ascorbic acid (vitamin C) 500 mg 500 mg PO DAILY 11/1211/06/24 History tablet (C-500) ferrous gluconate 324 mg (37.5 mg 324 mg PO DAILY 03/0711/06/24 History iron) tablet meloxicam 15 mg tablet 15 mg PO QDAY 11/06/2411/06 History ropinirole 1 mg tablet 3 mg PO QHS 11/06/24 5 History Ejection fraction %: 65 [facility] Medical History Cardiology follow-up encounter History of stress test History of echocardiogram Wears glasses Anxiety Alcohol use Prostate disease Low iron Injury of back Dietary restriction Hemorrhoids Smoker Shortness of breath on exertion Numbness and tingling of both feet History of pain when walking Enlarged lymph node BiPAP (biphasic positive airway pressure) dependence Restless leg syndrome Diabetes Vitamin D deficiency Hyperlipidemia IBS (irritable bowel syndrome) History of edema Abdominal pain History of Mcclain's palsy Suspected sleep apnea Hypertension Paroxysmal supraventricular tachycardia Thrombocytosis Leukocytosis Surgical History S/P repair of ventral hernia History of prior ablation treatment History of colonoscopy (~06/2010) History of right shoulder replacement Status post total replacement of right shoulder History of radiofrequency ablation procedure for cardiac arrhythmia (08/20/17) H/O arthroscopy of left knee History of splenectomy (~1997) Family History Mother , 98 years old Heart disease Neuropathy Breast cancer Father , 97 years old Colon cancer Grandfather CAD (coronary artery disease) Social History current occupational status: employed current occupation: [employer] pets and animals: Yes pets and animals: cat(s) Smoking Status: Current every day smoker tobacco type: cigarettes alcohol intake: current alcohol intake frequency: a few times a month Alcohol type: beer, wine and other substance use type: does not use caffeine: Yes (On avg 1 tall coffee mug daily occasional soda & tea) Type: carbonated beverages, coffee Number of servings: 2 and tea ROS Const Const: Negative for fatigue, weakness, daytime sleepiness or difficulty sleeping ENT ENT: Negative for dizziness or Nosebleed/epistaxis Cardio Chest Pain: No Palpitations: Yes (sometimes) Edema: None (wears compression stockings) Resp Respiratory: Positive for SOB with activity; Negative for SOB at rest, SOB orthopnea\SOB lying down or Cough GI GI: Negative nausea, vomiting or heartburn Neuro Neuro: Negative for dizziness, lightheadedness, near syncope or weakness Endo Endo: Negative for fatigue Supplemental Info Supplemental Information Echocardiogram 04/02/2023: Normal LV size. Left ventricular systolic function is normal. Stage 1 diastolic dysfunction. The left ventricular ejection fraction is 65 %. The left atrium is mildly enlarged. Contrast injection was performed. Exercise myocardial perfusion stress test 04/02/2023: Conclusion: Normal exercise myocardial perfusion stress test at a moderate workload Preserved ejection fraction. Event Monitor 11/30/22 Findings Predominant rhythm: NSR Atrial Tachycardia 6 episodes, longest 20 beats at avg 122 bpm up to 142 bpm, fastest 3 beats at avg 125 bpm up to 148 bpm Ectopic Atrial rhythm PAC 0.1% PVC 3% Chest X-Ray 03/11/21 Normal heart size. Normal mediastinum. Normal jasen. Prominent appearing increased interstitial lung markings. Normal visualized pulmonary arteries. There is atherosclerotic calcification of the aortic arch with tortuosity. There are diffuse degenerative changes of the visualized thoracic spine. There is degenerative osteoarthritis of the bilateral shoulders. Labs: LDL Cholesterol, (0-130) 36 mg/dL HDL Cholesterol, (40-) 37 mg/dL L Cholesterol, (200) 108 mg/dL Triglycerides, (-199) 173 mg/dL Diagnostics: Electrocardiogram Echocardiogram Stress Test Stress Test Nuclear Medicine Chest X-Ray Abdomen/Pelvis CT Past Visits: Cardiology Visit Today Assessment and Plan Assessment and Plan (1) Paroxysmal supraventricular tachycardia: Status: Chronic Plan: Overall, this appears stable. His most recent echocardiogram from 2023 showed apreserved ejection fraction with mildly enlarged left atrium. His most recent stress test was negative for ischemia at a moderate workload. We will continue to monitor. Lifestyle modification reviewed with him in detail. No changes made. (2) History of radiofrequency ablation procedure for cardiac arrhythmia: Status: Acute Comment: AVNRT RFA of [facility] @ [facility] Dr Gabe Dean Plan: He overall appears to be doing well I would not recommend that we make any changes he will continue on the same medications and I will like to see him again in approximately a year. (3) Hyperlipidemia: Status: Acute Plan: This is being monitored with primary care provider. Lipid panel from March 2024 demonstrated total cholesterol 108, HDL of 37 and LDL of 36. No changes will be made with regard to the above. (4) Hypertension: Status: Chronic Qualifiers: Hypertension type: essential hypertension Qualified Code(s): I10 - Essential (primary) hypertension Comment: CONTROLLED WITH MED Plan: Patient's blood pressure is well-controlled. We will continue to monitor. We will not make any medication regimen changes. Plan Details Additional Comments: Thank you for allowing us to participate in the patients plan of care, if you have any questions please do not hesitate to call. This note was generated using a voice recognition system and there may be incorrect words, spelling or punctuation that were not noted when reviewing the office note prior to saving. Portions of this documentation were copied and pasted from previous office visitnotes to provide a cohesive continuity of the history. The note has been reviewed, edited, and updated, as necessary. Follow Up: 1 Year (jhr) Coding Level of Care Code Off vis,est,level 4 Diagnoses Paroxysmal supraventricular tachycardia I47.1 History of radiofrequency ablation procedure for cardiac arrhythmia Z98.890 Hyperlipidemia E78.5 Essential hypertension I10 Hypertension type: essential hypertension Coding Level of Care Code Off vis,est,level 4 Diagnoses Paroxysmal supraventricular tachycardia I47.1 History of radiofrequency ablation procedure for cardiac arrhythmia Z98.890 Hyperlipidemia E78.5 Essential hypertension I10 Hypertension type: essential hypertension Clinical Quality Measures Cardiac Ejection fraction %: 65 11/06/24 1321 <Electronically signed by Marc Lino> Date _ Marc Baeza MD Cosigner Signature: Date (if applicable) CC: Dr. Shin Coles MD ~ [place] [employer] Work Phone: Reason for referral (narrative) Note Date & Type Note Facility Reason for referral (narrative) No reason for referral information available [facility] Work Phone: Summary Purpose Family History No Family History Records Found Relationship Condition Age at Onset Recorded Date/T quentin mother Cardiac disease Unknown Malignant neoplasm Unknown father Malignant neoplasm Unknown Relationship Condition Age at Onset Recorded Date/T quentin mother Cardiac disease Unknown Malignant neoplasm Unknown father Malignant neoplasm Unknown grandfather Coronary artery disease Unknown Relationship Condition Age at Onset Recorded Date/T quentin mother Cardiac disease Unknown Neuropathy Unknown Malignant neoplasm of breast Unknown father Malignant neoplasm of colon Unknown grandfather Coronary artery disease Unknown Advance Directives No Advanced Directives Records Found Advance Directive Response Recorded Date/ Time Living Will Yes March 24 7:15pm Power of Front Counter Attendant Yes March 24, 2021 7:15pm Advance Directive Response Recorded Date/ Time Name of Medical Power of Front Counter Attendant Alexandre Connell March 24, 2021 7:15pm Living Will Yes June 07, 2021 10:14am Power of Front Counter Attendant Yes June 07 10:14am Advance Directive Response Recorded Date/ Time Living Will Yes June 07, 2021 10:14am Power of Front Counter Attendant Yes June 07 10:14am Advance Directive Response Recorded Date/ Time Living Will Yes June 07, 2021 9:14am Power of Front Counter Attendant Yes June 07 9:14am Advance Directive Response Recorded Date/ Time Living Will Yes September 06, 2023 9:42am Do you have a Healthcare Power of Front Counter Attendant? Yes September 06, 2023 9:42am Chief Complaint and Reason for Visit Chief Complaint RIGHT SHOULDER.STRYK ER TORNIER PRE SURG RT ANATOMIC VS REVERSE TOTAL SHOULDER RT ANATOMIC VS REVERSE TOTAL SHOULDER RT ANATOMIC VS REVERSE TOTAL SHOULDER HERNIA Reason for Visit Status post total re placement of right shoulder Suspected sleep apnea Abdominal pain Chief Complaint RIGHT SHOULDER.STRYK ER TORNIER PRE SURG RT ANATOMIC VS REVERSE TOTAL SHOULDER RT ANATOMIC VS REVERSE TOTAL SHOULDER RT ANATOMIC VS REVERSE TOTAL SHOULDER HERNIA ABDOMINAL PAIN FU TO DISCUSS CT RESULTS Reason for Visit Status post total re placement of right shoulder Suspected sleep apnea Abdominal pain Abdominal pain Blood in stool Chief Complaint RT ANATOMIC VS REVER SE TOTAL SHOULDER RT ANATOMIC VS REVERSE TOTAL SHOULDER RT ANATOMIC VS REVERSE TOTAL SHOULDER HERNIA ABDOMINAL PAIN FU TO DISCUSS CT RESULTS Reason for Visit Status post total re placement of right shoulder Suspected sleep apnea Abdominal pain Abdominal pain Blood in stool Chief Complaint PRESENCE OF ARTIFICI AL JOINT *MARS PROTOCOL* Chief Complaint ABN HOLTER (COLES) Reason for Visit Chest pain History of radiofrequency ablation procedure for cardiac arrhythmia Paroxysmal supraventricular tachycardia Chief Complaint ABN HOLTER (COLES) CHEST PAIN CHEST PAIN Reason for Visit Chest pain History of radiofrequency ablation procedure for cardiac arrhythmia Paroxysmal supraventricular tachycardia Chief Complaint Admit Date S43.421A Sprain of right rotator cuff ca psule, ini September 17, 2024 1:06pm Chief Complaint Admit Date S43.421A Sprain of right rotator cuff ca psule, ini September 17, 2024 1:06pm 1 Y FU November 06, 2024 1:02pm Reason for Visit Admit Date History of radiofrequency ab lation procedure for cardiac arrhythmia November 06, 2024 1:02pm Hyperlipidemia November 06, 2024 1:02pm Hypertension November 06, 2024 1:02pm Paroxysmal supraventricular tachycardia November 06, 2024 1:02pm Additional Source Comments (unrecognized sect ion and content) No Status Records FoundNo Status Records Found INFORMATION SOURCE (unrecogn ized section and content) DATE CREATED AUTHOR 08/28/2017 [facility] DATE CREATED AUTHOR AUTHOR'S ORGANIZ ATION 12/25/2024 [facility] y [facility] Goals (unrecognized section and content) Goals may be documented in a n alternate sectionGoals may be documented in an alternate sectionGoals may be documented in an alternate sectionGoals may be documented in an alternate sectionGoals may be documented in an alternate sectionGoals may be documented in an alternate sectionGoals may be documented in an alternate sectionGoals may be documented in an alternate sectionGoals may be documented in an alternate sectionGoals may be documented in an alternate sectionGoals may be documented in an alternate sectionGoals may be documented in an alternate sectionGoals may be documented in an alternate sectionGoals may be documented in an alternate section Care Teams (unrecognized sec tion and content) Team Status: Active Member Role Status Dates Dr. Nomi Hernandez MD Family Provider Active Dr. Shin Coles MD Primary Care Provider Active Team Status: Inactive Member Role Status Dates Dr. Shin Coles MD Primary Care Provider, Attending Provider Active Team Status: Inactive Member Role Status Dates Dr. Shin Coles MD Primary Care Provider, Referring Provider Active Dr. Marc Baeza MD Attending Provider Active Team Status: Inactive Member Role Status Dates Dr. Shin Coles MD Primary Care Provider, Other Pro vider Active Dr. Reji Lou MD Attending Provider, Referr ing Provider Active Team Status: Active Member Role Status Dates Dr. Shin Coles MD Primary Care Provider Active Dr. Marc Baeza MD Attending Provider, Referring Provider, Other Provider Active Team Status: Inactive Member Role Status Dates Dr. Shin Coles MD Primary Care Provider Active Dr. Marc Baeza MD Attending Provider, Referring Pro vider Active Team Status: Inactive Member Role Status Dates Dr. Shin Coles MD Primary Care Provider Active Damaris Jimenezing Attending Provider, Referring Provide r Active Team Status: Active Member Role/Relationship Status Dates Dr. Nomi Hernandez MD Family Provider Active Dr. Shin Coles MD Primary Care Provider Active Team Status: Inactive Member Role/Relationship Status Dates Dr. Shin Coles MD Primary Care Provider Active Start: August 05, 2024 End: August 05, 2024 Dr. Andrea Alvarez DO Attending Provider Active Start: August 05, 2024 End: August 05, 2024 Dr. Andrea Alvarez DO Referring Provider Active Start: August 05, 2024 End: August 05, 2024 Team Status: Active Member Role/Relationship Status Dates Dr. Shin Coles MD Primary Care Provider Active Team Status: Inactive Member Role/Relationship Status Dates Dr. Shin Coles MD Primary Care Provider Active Start: September 17, 2024 End: September 17, 2024 RUDI Arechiga Attending Provider Active Start: September 17, 2024 End: September 17, 2024 RUDI Arechiga Referring Provider Active Start: September 17, 2024 End: September 17, 2024 Team Status: Active Member Role/Relationship Status Dates Dr. Shin Coles MD Primary care physician Active Team Status: Inactive Member Role/Relationship Status Dates Dr. Shin Coles MD Primary care physician Active Start: August 05, 2024 End: August 05, 2024 Dr. Andrea Alvarez DO Attending physician Active Start: August 05, 2024 End: August 05, 2024 Dr. Andrea Alvarez DO Referring Provider Active Start: August 05, 2024 End: August 05, 2024 Team Status: Inactive Member Role/Relationship Status Dates Dr. Shin Coles MD Primary care physician Active Start: September 17, 2024 End: September 17, 2024 RUDI Arechiga Attending physician Active Start: September 17, 2024 End: September 17, 2024 RUDI Arechiga Referring Provider Active Start: September 17, 2024 End: September 17, 2024 Team Status: Inactive Member Role/Relationship Status Dates Dr. Shin Coles MD Primary care physician Active Start: November 06, 2024 End: November 06, 2024 Dr. Shni Coles MD Referring Provider Active Start: November 06, 2024 End: November 06, 2024 Dr. Marc Baeza MD Attending physician Active Start: November 06, 2024 End: November 06, 2024 FOR RECORDS PERTAINING TO PATIENTS WHO ARE [...] BE BASED ON THE PRIMARY CLINICAL RECORDS. [employer] [facility]. provides no warranty or guarantee of the accuracy or completeness of information in this document.
[2024-12-31 18:58] LABS: AST(SGOT) 16 U/L (<=37); Alanine Aminotransfer ALT/SGPT 15 U/L (<=46); Albumin, Serum 4.2 g/dL (3.4-4.8); Alkaline Phosphatase 74 U/L (40-129); Anion Gap 11 (5-15); BUN 14 mg/dL (4-19); BUN/Creat Ratio 13.3 RATIO (10-20); Calcium,Total 9.5 mg/dL (7.6-11.0); Carbon Dioxide 22.5 mmol/L (21.0-32.0); Chloride 108 mmol/L (98-108); Cholesterol 120 mg/dL (<=200); Globulin 3.0 g/dL (2.2-4.2); Glucose 116 mg/dL (70-99); Low Density Lipoprotein Calc. 62 mg/dL; Potassium 4.1 mmol/L (3.3-5.1); Triglycerides 128 mg/dL; Very Low Density Lipoprotein 26 mg/dL (5-40); cholesterol:hdl ratio screen 3.47
== END | disposition home or self-care (01) ==
LOC: MTLAB 14:02
PROVIDERS: PCP Family Medicine; Referring Provider Family Medicine; Visit Provider Family Medicine
DX: E11.9 Type 2 diabetes mellitus without complications (principal)
CPT/HCPCS: 36415; 80053; 80061